=== PATIENT | female | born 1945 | race Caucasian/White ===

== ENCOUNTER 2017-08-22 18:35 | Inpatient (IN) | payer OTHER ==
[~2017-08-22] VITALS: Ht 152.4 cm; Wt 72.3 kg
[2017-08-22 20:05] LABS: Basophils # (auto) 0.1 uL; Basophils % (auto) 0.9 % (0.0-2.0); Eosinophils # (auto) 0.2 uL; Eosinophils % (auto) 1.9 % (0.0-7.0); Hematocrit 41.7 % (36.0-46.0); Lymphocytes # (auto) 2.9 uL; Lymphocytes % (auto) 32.7 % (10.0-50.0); Mean Corpuscular Hemoglobin 30.7 pg (28.0-32.0); Mean Corpuscular Hgb Conc. 33.6 g/dL (32.0-36.0); Mean Corpuscular Volume 91.3 fL (80.0-100.0); Monocytes # (auto) 0.6 uL; Monocytes % (auto) 6.9 % (0.0-12.0); Neutrophils # (auto) 5.1 uL; Neutrophils % (auto) 57.6 % (37.0-80.0); Nucleated Red Blood Cells % 0.1 %; Platelet Count (auto) 246 10^3/uL (140-450); Red Blood Cells 4.57 10^6/uL (4.0-5.20); White Blood Cell 8.9 10^3/uL (4.4-10.8)
[2017-08-22 20:12] LABS: Albumin 3.3 g/dL (3.4-5.0); BUN/Creatinine Ratio 17.3; Calcium 8.8 mg/dL (8.5-10.1)
[2017-08-22 20:15] LABS: Bilirubin, Total 0.5 mg/dL (0.2-1.0); Total Protein 7.2 g/dL (6.4-8.2)
[2017-08-22] MEDS ORDERED: CLINDAMYCIN 900MG IV 50 ML IV ONE (22:15)
[2017-08-22 23:02] LABS: Basophils # (auto) 0.1 uL; Eosinophils # (auto) 0.2 uL; Eosinophils % (auto) 1.9 % (0.0-7.0); Hematocrit 41.6 % (36.0-46.0); Hemoglobin 13.8 g/dL (12.2-16.2); Lymphocytes # (auto) 3.1 uL; Lymphocytes % (auto) 34.8 % (10.0-50.0); Mean Corpuscular Hemoglobin 30.2 pg (28.0-32.0); Mean Corpuscular Hgb Conc. 33.2 g/dL (32.0-36.0); Mean Corpuscular Volume 90.9 fL (80.0-100.0); Monocytes # (auto) 0.7 uL; Monocytes % (auto) 7.6 % (0.0-12.0); Neutrophils # (auto) 4.9 uL; Neutrophils % (auto) 54.7 % (37.0-80.0); Platelet Count (auto) 240 10^3/uL (140-450); Red Blood Cells 4.58 10^6/uL (4.0-5.20); White Blood Cell 8.9 10^3/uL (4.4-10.8)
[2017-08-22 23:18] LABS: INR 0.9 (0.9-1.15); Partial Thromboplastin Time 23.6 sec (22.64-33.71); Prothrombin Time 9.8 sec (9.37-12.3)
[2017-08-22 23:26] LABS: Albumin 3.4 g/dL (3.4-5.0); BUN/Creatinine Ratio 18.6; Bilirubin, Total 0.5 mg/dL (0.2-1.0); CRP High Sensitivity 1.08 mg/dL (< 0.3); Calcium 8.7 mg/dL (8.5-10.1); Magnesium 2.3 mg/dL (1.6-2.6); Potassium 3.7 mmol/L (3.5-5.1); Total Protein 7.3 g/dL (6.4-8.2)
[2017-08-23] VITALS (7 sets, daily range): BP systolic 91–160; BP diastolic 48–97
[2017-08-23 00:14] LABS: Urine Bacteria FEW /hpf (None Seen); Urine Blood Negative /uL (Negative); Urine WBC 18 /hpf (0 - 5)
[2017-08-23] MEDS ORDERED: InsuLIN REG 1unit/0.01ml Soln (100units/ml) IV ONE ×2 (00:15→00:30)
[2017-08-23] MEDS ORDERED: HYDROcodone-ACET 5/325MG TAB PO PRN (01:45)
[2017-08-23] MEDS ORDERED: ONDANSETRON HCL 4 MG/2 ML VIAL IV PRN (01:45)
[2017-08-23] MEDS ORDERED: MORPHINE SULFATE 4 MG/ML SYR/VIAL IV PRN (01:45)
[2017-08-23] MEDS ORDERED: ACETAMINOPHEN 500 MG TAB PO PRN (01:45)
[2017-08-23] MEDS ORDERED: DEXTROSE (50%) 50ML SYRG IV PRN (01:45)
[2017-08-23] MEDS ORDERED: SODIUM CHLORIDE 0.9% 1,000 ML IV ONE (01:45)
[2017-08-23] MEDS ORDERED: LISI10TA6 PO (05:19)
[2017-08-23] MEDS ORDERED: LEVO100T8 PO (05:19)
[2017-08-23] MEDS: InsuLIN REG 1unit/0.01ml Soln (100units/ml) SC SCH ×4 (06:46→22:02)
[2017-08-23] MEDS: ACCU-CHEK COMFORT CURVE STRIP VI SCH ×4 (06:47→22:03)
[2017-08-23] MEDS: CLINDAMYCIN 600MG IV 50 ML IV SCH ×3 (07:01→22:02)
[2017-08-23] MEDS: LEVOTHYROXINE SODIUM 100 MCG TAB PO SCH (07:02)
[2017-08-23 07:59] LABS: Basophils # (auto) 0.1 uL; Basophils % (auto) 0.7 % (0.0-2.0); Eosinophils # (auto) 0.1 uL; Eosinophils % (auto) 1.5 % (0.0-7.0); Hematocrit 40.1 % (36.0-46.0); Hemoglobin 13.5 g/dL (12.2-16.2); Lymphocytes # (auto) 3.1 uL; Lymphocytes % (auto) 35.1 % (10.0-50.0); Mean Corpuscular Hemoglobin 30.2 pg (28.0-32.0); Mean Corpuscular Hgb Conc. 33.6 g/dL (32.0-36.0); Mean Corpuscular Volume 89.7 fL (80.0-100.0); Monocytes # (auto) 0.6 uL; Monocytes % (auto) 6.7 % (0.0-12.0); Neutrophils # (auto) 4.9 uL; Platelet Count (auto) 226 10^3/uL (140-450); Red Blood Cells 4.47 10^6/uL (4.0-5.20); White Blood Cell 8.7 10^3/uL (4.4-10.8)
[2017-08-23 08:13] LABS: Cholesterol 201 mg/dL (< 200); HDL Cholesterol 43 mg/dL (40-59); LDL Cholesterol 145 mg/dL (< 100); Triglycerides 98 mg/dL (< 150)
[2017-08-23] MEDS: LISINOPRIL 10 MG TAB PO SCH (10:11)
[2017-08-23] MEDS: glipiZIDE 5 MG TAB PO SCH (18:08)
[2017-08-23] MEDS ORDERED: INSULIN LANTUS (GLARGINE) 1 /0.01ml (100units/ml) SC SCH (22:00)
[2017-08-24 05:25] VITALS: BP 131/67
[2017-08-24] MEDS: CLINDAMYCIN 600MG IV 50 ML IV SCH ×3 (06:10→22:42)
[2017-08-24] MEDS: LEVOTHYROXINE SODIUM 100 MCG TAB PO SCH (06:46)
[2017-08-24] MEDS: glipiZIDE 5 MG TAB PO SCH ×2 (06:46→18:06)
[2017-08-24] MEDS: InsuLIN REG 1unit/0.01ml Soln (100units/ml) SC SCH ×4 (06:47→22:00)
[2017-08-24] MEDS: ACCU-CHEK COMFORT CURVE STRIP VI SCH ×3 (06:47→17:10)
[2017-08-24 08:00] VITALS: BP 126/76
[2017-08-24] MEDS ORDERED: PROPOFOL 10 MG/ML 20 ML IV ONE (08:22)
[2017-08-24] MEDS ORDERED: fentaNYL CITRATE 100 MCG/2 ML VL ONE (08:22)
[2017-08-24] MEDS ORDERED: MIDAZOLAM HCL 1MG/1ML-2 ML VIAL ONE (08:22)
[2017-08-24] MEDS ORDERED: ONDANSETRON HCL 4 MG/2 ML VIAL ONE (08:22)
[2017-08-24] MEDS ORDERED: SODIUM CHLORIDE LOCK 10 ML ONE (08:57)
[2017-08-24 09:00] VITALS: BP 126/76
[2017-08-24] MEDS ORDERED: MORPHINE SULFATE 4 MG/ML SYR/VIAL IV PRN (09:15)
[2017-08-24] MEDS ORDERED: ACCU-CHEK COMFORT CURVE STRIP VI ONE (09:15)
[2017-08-24] MEDS ORDERED: METOCLOPRAMIDE HCL 5MG/ml INJ 2ml VIAL IV ONE (09:15)
[2017-08-24] MEDS: LISINOPRIL 10 MG TAB PO SCH (10:00)
[2017-08-24 13:00] VITALS: BP 134/76
[2017-08-24] MEDS ORDERED: ATOR20TA PO (14:40)
[2017-08-24 16:58] VITALS: BP 153/78
[2017-08-24] MEDS: INSULIN LANTUS (GLARGINE) 1 /0.01ml (100units/ml) SC SCH (22:00)
[2017-08-24] MEDS ORDERED: INSULIN LANTUS (GLARGINE) 1 /0.01ml (100units/ml) SC SCH (22:00)
[2017-08-24 23:00] VITALS: BP 166/83
[2017-08-25] MEDS: ACCU-CHEK COMFORT CURVE STRIP VI SCH ×5 (00:01→23:35)
[2017-08-25 04:02] VITALS: BP 145/66
[2017-08-25] MEDS: LEVOTHYROXINE SODIUM 100 MCG TAB PO SCH (06:16)
[2017-08-25] MEDS: CLINDAMYCIN 600MG IV 50 ML IV SCH ×3 (06:16→22:21)
[2017-08-25] MEDS: glipiZIDE 5 MG TAB PO SCH ×2 (06:39→18:11)
[2017-08-25] MEDS: InsuLIN REG 1unit/0.01ml Soln (100units/ml) SC SCH ×4 (06:39→23:35)
[2017-08-25 06:44] LABS: Basophils # (auto) 0.1 uL; Basophils % (auto) 0.5 % (0.0-2.0); Eosinophils # (auto) 0.2 uL; Eosinophils % (auto) 1.9 % (0.0-7.0); Hematocrit 39.4 % (36.0-46.0); Hemoglobin 13.5 g/dL (12.2-16.2); Lymphocytes # (auto) 3.1 uL; Lymphocytes % (auto) 32.4 % (10.0-50.0); Mean Corpuscular Hgb Conc. 34.3 g/dL (32.0-36.0); Mean Corpuscular Volume 90.4 fL (80.0-100.0); Monocytes # (auto) 0.7 uL; Monocytes % (auto) 7.6 % (0.0-12.0); Neutrophils # (auto) 5.5 uL; Neutrophils % (auto) 57.6 % (37.0-80.0); Platelet Count (auto) 225 10^3/uL (140-450); Red Blood Cells 4.36 10^6/uL (4.0-5.20); Red Cell Distribution Width 14.3 % (11.8-14.3); White Blood Cell 9.6 10^3/uL (4.4-10.8)
[2017-08-25 07:17] LABS: BUN/Creatinine Ratio 21.7; Calcium 8.7 mg/dL (8.5-10.1)
[2017-08-25 09:08] VITALS: BP 150/96
[2017-08-25] MEDS: LISINOPRIL 10 MG TAB PO SCH (10:05)
[2017-08-25 13:00] VITALS: BP 150/82
[2017-08-25 17:06] VITALS: BP 133/81
[2017-08-25] MEDS ORDERED: MORPHINE SULFATE 8mg/ml INJ SDV IV PRN (18:15)
[2017-08-25 22:00] VITALS: BP 132/81
[2017-08-25] MEDS: INSULIN LANTUS (GLARGINE) 1 /0.01ml (100units/ml) SC SCH (22:00)
[2017-08-26 04:44] VITALS: BP 144/71
[2017-08-26] MEDS: LEVOTHYROXINE SODIUM 100 MCG TAB PO SCH (06:08)
[2017-08-26] MEDS: CLINDAMYCIN 600MG IV 50 ML IV SCH ×2 (06:08→14:00)
[2017-08-26] MEDS: InsuLIN REG 1unit/0.01ml Soln (100units/ml) SC SCH ×2 (06:16→11:30)
[2017-08-26] MEDS: glipiZIDE 5 MG TAB PO SCH (06:16)
[2017-08-26] MEDS: ACCU-CHEK COMFORT CURVE STRIP VI SCH ×2 (06:16→11:30)
[2017-08-26 07:05] LABS: Basophils # (auto) 0.1 uL; Basophils % (auto) 0.9 % (0.0-2.0); Eosinophils # (auto) 0.1 uL; Eosinophils % (auto) 1.6 % (0.0-7.0); Hematocrit 38.8 % (36.0-46.0); Hemoglobin 13.3 g/dL (12.2-16.2); Lymphocytes # (auto) 2.7 uL; Lymphocytes % (auto) 33.9 % (10.0-50.0); Mean Corpuscular Hemoglobin 30.5 pg (28.0-32.0); Mean Corpuscular Hgb Conc. 34.2 g/dL (32.0-36.0); Mean Corpuscular Volume 89.2 fL (80.0-100.0); Monocytes # (auto) 0.6 uL; Monocytes % (auto) 7.6 % (0.0-12.0); Neutrophils # (auto) 4.4 uL; Platelet Count (auto) 233 10^3/uL (140-450); Red Blood Cells 4.35 10^6/uL (4.0-5.20); Red Cell Distribution Width 14.2 % (11.8-14.3); White Blood Cell 7.9 10^3/uL (4.4-10.8)
[2017-08-26 07:24] LABS: BUN/Creatinine Ratio 31.7; Calcium 8.6 mg/dL (8.5-10.1); Potassium 3.7 mmol/L (3.5-5.1)
[2017-08-26 09:00] VITALS: BP_SYST 151; BP_SYST 75; BP_DIAS 42; BP_DIAS 93
[2017-08-26] MEDS: LISINOPRIL 10 MG TAB PO SCH (10:00)
[2017-08-26 12:55] VITALS: BP 141/91
[2017-08-26 14:16] VITALS: BP 141/91
== END 2017-08-26 15:55 | disposition home or self-care (01) | DRG 623 ==
LOC: ER 18:35 → OVERFLOW 18:36 → CENTRAL 08-23 03:50
PROVIDERS: ADMIT Nurse Practitioner Family; ATTEND Internal Medicine
PROC: 0JB80ZZ Excision of Abdomen Subcutaneous Tissue and Fascia, Open Approach (ICD-10-PCS; principal; 2017-08-24 09:03)
DX: E11.65 Type 2 diabetes mellitus with hyperglycemia (principal); L02.211 Cutaneous abscess of abdominal wall; I11.9 Hypertensive heart disease without heart failure; L03.311 Cellulitis of abdominal wall; E66.9 Obesity, unspecified; E03.9 Hypothyroidism, unspecified; Z79.84 Long term (current) use of oral hypoglycemic drugs; Z79.899 Other long term (current) drug therapy; Z83.3 Family history of diabetes mellitus; Z82.49 Family history of ischemic heart disease and other diseases of the circulatory system; Z68.31 Body mass index [BMI] 31.0-31.9, adult
CPT/HCPCS: 36415; 71045; 80048; 80053; 80061; 81001; 82306; 82607; 82962; 83036; 83735; 84443; 85025; 85610; 85730; 86141; 87040; 87070; 87075; 87081; 87205; 93005; 94761; 96361; 96365; 96375; J1815; J2250; J2405; J2704; J3490

== ENCOUNTER → 2017-08-23 | Outpatient (CLI) | payer OTHER ==
[~2017-08-23] MED LIST: ATOR20TA PO; GLIP-116 PO; LEVO100T8 PO; LISI10TA6 PO; NITR-39 PO
== END | disposition home or self-care (01) ==
LOC: LAB 10:53
PROVIDERS: ATTEND Internal Medicine
DX: L02.91 Cutaneous abscess, unspecified (principal)
CPT/HCPCS: 87070; 87205

== ENCOUNTER 2017-09-02 16:37 | Inpatient (IN) | payer MEDICARE, OTHER ==
[~2017-09-02] VITALS: Ht 154.9 cm; Wt 69.9 kg
[~2017-09-02 16:37] MED LIST changes: -GLIP-116 PO; -NITR-39 PO
[2017-09-02 17:44] LABS: Basophils # (auto) 0.1 uL; Basophils % (auto) 0.9 % (0.0-2.0); Eosinophils # (auto) 0.1 uL; Eosinophils % (auto) 0.9 % (0.0-7.0); Hematocrit 43.8 % (36.0-46.0); Hemoglobin 14.8 g/dL (12.2-16.2); Lymphocytes # (auto) 3.4 uL; Lymphocytes % (auto) 28.8 % (10.0-50.0); Mean Corpuscular Hemoglobin 30.1 pg (28.0-32.0); Mean Corpuscular Hgb Conc. 33.8 g/dL (32.0-36.0); Monocytes # (auto) 0.8 uL; Monocytes % (auto) 6.6 % (0.0-12.0); Neutrophils # (auto) 7.4 uL; Neutrophils % (auto) 62.8 % (37.0-80.0); Nucleated Red Blood Cells % 0.1 %; Platelet Count (auto) 304 10^3/uL (140-450); Red Blood Cells 4.92 10^6/uL (4.0-5.20); Red Cell Distribution Width 13.9 % (11.8-14.3); White Blood Cell 11.7 10^3/uL (4.4-10.8)
[2017-09-02 18:06] LABS: Alanine Aminotransferase 30 U/L (13-56); Albumin 3.7 g/dL (3.4-5.0); Alkaline Phosphatase 95 U/L (45-117); Anion Gap 11 (5-15); Aspartate Aminotransferase 21 U/L (15-37); BUN/Creatinine Ratio 28.3; Bilirubin, Total 0.5 mg/dL (0.2-1.0); Blood Urea Nitrogen 17 mg/dL (7-18); Calcium 9.8 mg/dL (8.5-10.1); Carbon Dioxide 24 mmol/L (21-32); Chloride 102 mmol/L (98-107); GFR African American 127 mL/min; GFR Non-African American 105 mL/min; Glucose 111 mg/dL (74-106); Potassium 3.7 mmol/L (3.5-5.1); Sodium 137 mmol/L (136-145); Total Protein 8.1 g/dL (6.4-8.2)
[2017-09-02] MEDS ORDERED: ASPirin-EC 325mg tab PO ONE (19:15)
[2017-09-02] MEDS ORDERED: MORPHINE SULFATE 8mg/ml INJ SDV IV ONE (19:15)
[2017-09-02] MEDS ORDERED: NITROGLYCERIN 0.4 MG SL TAB SL ONE (19:15)
[2017-09-02] MEDS ORDERED: DOCUSATE SOD 100 MG CAP PO PRN (21:00)
[2017-09-02] MEDS ORDERED: TEMAZEPAM 15 MG CAP PO PRN (21:00)
[2017-09-02] MEDS ORDERED: ONDANSETRON HCL 4 MG/2 ML VIAL IV PRN (21:00)
[2017-09-02] MEDS ORDERED: HYDROcodone-ACET 5/325MG TAB PO PRN (21:00)
[2017-09-02] MEDS ORDERED: DEXTROSE (50%) 50ML SYRG IV PRN (21:00)
[2017-09-02] MEDS ORDERED: ACETAMINOPHEN 325 MG TAB PO PRN (21:00)
[2017-09-02] MEDS ORDERED: NITROGLYCERIN 0.4 MG SL TAB SL PRN (21:00)
[2017-09-02] MEDS ORDERED: MORPHINE SULFATE 8mg/ml INJ SDV IV PRN (21:00)
[2017-09-02] MEDS ORDERED: GLIP-116 PO (21:01)
[2017-09-02] MEDS: FAMOTIDINE 20 MG TAB PO SCH (22:00)
[2017-09-02] MEDS ORDERED: cloNIDine HCL 0.1 MG TAB PO PRN (22:15)
[2017-09-02] MEDS: ATORVASTATIN 20 MG TAB PO SCH (22:30)
[2017-09-02 23:00] VITALS: BP 132/100
[2017-09-02] MEDS: InsuLIN REG 1unit/0.01ml Soln (100units/ml) SC SCH (23:51)
[2017-09-02] MEDS: ACCU-CHEK COMFORT CURVE STRIP VI SCH (23:51)
[2017-09-03 04:32] VITALS: BP 119/65
[2017-09-03 05:55] LABS: Basophils # (auto) 0.1 uL; Basophils % (auto) 0.9 % (0.0-2.0); Eosinophils # (auto) 0.1 uL; Eosinophils % (auto) 1.5 % (0.0-7.0); Hemoglobin 13.1 g/dL (12.2-16.2); Lymphocytes # (auto) 2.9 uL; Mean Corpuscular Hemoglobin 30.8 pg (28.0-32.0); Mean Corpuscular Hgb Conc. 34.4 g/dL (32.0-36.0); Mean Corpuscular Volume 89.5 fL (80.0-100.0); Monocytes # (auto) 0.6 uL; Monocytes % (auto) 6.2 % (0.0-12.0); Neutrophils # (auto) 5.9 uL; Neutrophils % (auto) 61.4 % (37.0-80.0); Nucleated Red Blood Cells % 0.1 %; Platelet Count (auto) 257 10^3/uL (140-450); Red Blood Cells 4.24 10^6/uL (4.0-5.20); Red Cell Distribution Width 13.7 % (11.8-14.3); White Blood Cell 9.6 10^3/uL (4.4-10.8)
[2017-09-03] MEDS: ACCU-CHEK COMFORT CURVE STRIP VI SCH ×4 (06:00→23:36)
[2017-09-03] MEDS: InsuLIN REG 1unit/0.01ml Soln (100units/ml) SC SCH ×4 (06:00→23:36)
[2017-09-03 06:06] LABS: Calcium 8.8 mg/dL (8.5-10.1); Potassium 3.9 mmol/L (3.5-5.1)
[2017-09-03 06:09] LABS: BUN/Creatinine Ratio 25.9
[2017-09-03 06:12] LABS: Bilirubin, Total 0.6 mg/dL (0.2-1.0); Total Protein 6.7 g/dL (6.4-8.2)
[2017-09-03] MEDS: LEVOTHYROXINE SODIUM 100 MCG TAB PO SCH (06:19)
[2017-09-03 07:29] LABS: Urine Bacteria NONE SEEN /hpf (None Seen); Urine Blood Negative /uL (Negative); Urine Mucus FEW (None Seen); Urine Specific Gravity 1.017 (1.001-1.035); Urine WBC 4 /hpf (0 - 5)
[2017-09-03 09:00] VITALS: BP 144/70
[2017-09-03] MEDS: ASPirin 81 mg TAB PO SCH (09:53)
[2017-09-03] MEDS: FAMOTIDINE 20 MG TAB PO SCH ×2 (09:54→18:32)
[2017-09-03] MEDS: ENOXAPARIN SOD 40 MG/0.4 ML SYRINGE SC SCH (09:54)
[2017-09-03] MEDS: LISINOPRIL 10 MG TAB PO SCH (09:54)
[2017-09-03] MEDS ORDERED: NITROFURANTOIN (MONO) 100 mg CAP PO ONE (11:00)
[2017-09-03 13:00] VITALS: BP 128/77
[2017-09-03 17:00] VITALS: BP 145/89
[2017-09-03] MEDS: NITROFURANTOIN (MONO) 100 mg CAP PO SCH (21:53)
[2017-09-03] MEDS: ATORVASTATIN 20 MG TAB PO SCH (21:53)
[2017-09-03 22:15] VITALS: BP 120/72
[2017-09-04 05:00] VITALS: BP 118/75
[2017-09-04] MEDS: ACCU-CHEK COMFORT CURVE STRIP VI SCH ×3 (06:03→16:56)
[2017-09-04] MEDS: InsuLIN REG 1unit/0.01ml Soln (100units/ml) SC SCH ×3 (06:03→16:57)
[2017-09-04] MEDS: LEVOTHYROXINE SODIUM 100 MCG TAB PO SCH (06:15)
[2017-09-04 09:00] VITALS: BP 111/78
[2017-09-04] MEDS: ENOXAPARIN SOD 40 MG/0.4 ML SYRINGE SC SCH (10:00)
[2017-09-04] MEDS: LISINOPRIL 10 MG TAB PO SCH (10:30)
[2017-09-04] MEDS: NITROFURANTOIN (MONO) 100 mg CAP PO SCH (10:31)
[2017-09-04] MEDS: ASPirin 81 mg TAB PO SCH (10:31)
[2017-09-04] MEDS: FAMOTIDINE 20 MG TAB PO SCH (10:31)
[2017-09-04 13:00] VITALS: BP 121/81
[2017-09-04 17:00] VITALS: BP 134/78
[2017-09-04] MEDS ORDERED: NITR-39 PO (17:01)
[2017-09-04 17:23] VITALS: BP 111/78
== END 2017-09-04 18:52 | disposition home or self-care (01) | DRG 690 ==
LOC: ER 16:37 → TELE 16:38 → TELE-WESTW 22:30
PROVIDERS: ADMIT Nurse Practitioner; ATTEND Nurse Practitioner
DX: N39.0 Urinary tract infection, site not specified (principal); I24.9 Acute ischemic heart disease, unspecified; E11.9 Type 2 diabetes mellitus without complications; E66.01 Morbid (severe) obesity due to excess calories; E78.00 Pure hypercholesterolemia, unspecified; B95.1 Streptococcus, group B, as the cause of diseases classified elsewhere; G47.00 Insomnia, unspecified; K59.00 Constipation, unspecified; R07.89 Other chest pain; E78.5 Hyperlipidemia, unspecified; I10 Essential (primary) hypertension; Z83.3 Family history of diabetes mellitus; Z68.29 Body mass index [BMI] 29.0-29.9, adult; Z88.2 Allergy status to sulfonamides; Z88.1 Allergy status to other antibiotic agents; Z91.040 Latex allergy status; Z79.899 Other long term (current) drug therapy
CPT/HCPCS: 36415; 71045; 80053; 81001; 82962; 84484; 85025; 87081; 87086; 93005; 93306; 94761; J1815

== ENCOUNTER → 2017-12-25 | Outpatient (CLI) | payer OTHER, MEDICARE ==
[~2017-12-25] MED LIST changes: +GLIP-116 PO; +NITR-39 PO
[2017-12-25 09:04] LABS: Cholesterol 196 mg/dL (< 200); HDL Cholesterol 42 mg/dL (40-59); LDL Cholesterol 153 mg/dL (< 100); Triglycerides 101 mg/dL (< 150)
== END | disposition home or self-care (01) ==
LOC: LAB 07:35
PROVIDERS: ATTEND Internal Medicine
DX: E11.9 Type 2 diabetes mellitus without complications (principal); Z88.2 Allergy status to sulfonamides; Z88.0 Allergy status to penicillin; Z88.1 Allergy status to other antibiotic agents
CPT/HCPCS: 36415; 80061; 82043; 83036

== ENCOUNTER → 2019-03-18 | Outpatient (CLI) | payer OTHER, MEDICARE ==
[~2019-03-18] MED LIST changes: -GLIP-116 PO; +GLIP10TA9 PO
[2019-03-18 09:50] LABS: Basophils # (auto) 0.1 uL; Basophils % (auto) 1.1 % (0.0-2.0); Eosinophils # (auto) 0.2 uL; Hematocrit 42.7 % (36.0-46.0); Hemoglobin 14.4 g/dL (12.2-16.2); Lymphocytes # (auto) 2.9 uL; Lymphocytes % (auto) 35.6 % (10.0-50.0); Mean Corpuscular Hemoglobin 30.5 pg (28.0-32.0); Mean Corpuscular Hgb Conc. 33.7 g/dL (32.0-36.0); Mean Corpuscular Volume 90.5 fL (80.0-100.0); Monocytes # (auto) 0.6 uL; Neutrophils # (auto) 4.3 uL; Neutrophils % (auto) 53.3 % (37.0-80.0); Platelet Count (auto) 241 10^3/uL (140-450); Red Blood Cells 4.72 10^6/uL (4.0-5.20); Red Cell Distribution Width 14.5 % (11.8-14.3)
[2019-03-18 11:13] LABS: Potassium 4.5 mmol/L (3.5-5.1)
[2019-03-18 11:15] LABS: Free T4 (Free Thyroxine) 1.05 ng/dL (0.89-1.76)
[2019-03-18 11:35] LABS: Albumin 3.5 g/dL (3.4-5.0); BUN/Creatinine Ratio 23.2; Bilirubin, Total 0.9 mg/dL (0.2-1.0); Calcium 8.9 mg/dL (8.5-10.1); Total Protein 7.3 g/dL (6.4-8.2)
== END | disposition home or self-care (01) ==
LOC: LAB 09:16
PROVIDERS: ATTEND Internal Medicine
DX: E11.42 Type 2 diabetes mellitus with diabetic polyneuropathy (principal)
CPT/HCPCS: 36415; 80053; 80061; 82043; 82607; 83036; 84439; 84443; 85025; 85652

== ENCOUNTER → 2019-09-20 | Outpatient (CLI) | payer OTHER ==
[~2019-09-20] MED LIST changes: +LISI-648 PO; -LISI10TA6 PO; +METF-370 PO; +PRAV20TA3 PO
[2019-09-20 10:04] LABS: Basophils # (auto) 0.1 10 ^3/uL (0-0.2); Basophils % (auto) 1.3 % (0.0-2.0); Eosinophils # (auto) 0.3 10 ^3/uL (0-0.8); Eosinophils % (auto) 2.6 % (0.0-7.0); Hematocrit 42.5 % (36.0-46.0); Hemoglobin 13.9 g/dL (12.2-16.2); Lymphocytes % (auto) 28.2 % (10.0-50.0); Mean Corpuscular Hemoglobin 29.9 pg (28.0-32.0); Mean Corpuscular Hgb Conc. 32.8 g/dL (32.0-36.0); Mean Corpuscular Volume 91.2 fL (80.0-100.0); Monocytes # (auto) 0.6 10 ^3/uL (0-1.3); Monocytes % (auto) 5.5 % (0.0-12.0); Neutrophils # (auto) 6.6 10 ^3/uL (1.6-8.6); Neutrophils % (auto) 62.4 % (37.0-80.0); Nucleated Red Blood Cells % 0.1 %; Platelet Count (auto) 256 10^3/uL (140-450); Red Blood Cells 4.66 10^6/uL (4.0-5.20); Red Cell Distribution Width 14.5 % (11.8-14.3); White Blood Cell 10.6 10^3/uL (4.4-10.8)
[2019-09-20 11:03] LABS: Cholesterol 231 mg/dL (< 200); HDL Cholesterol 40 mg/dL (40-59); LDL Cholesterol 159 mg/dL (< 100); Triglycerides 155 mg/dL (< 150)
== END | disposition home or self-care (01) ==
LOC: LAB 09:41
PROVIDERS: ATTEND Internal Medicine
DX: E11.65 Type 2 diabetes mellitus with hyperglycemia (principal)
CPT/HCPCS: 36415; 80061; 83036; 84443; 85025

== ENCOUNTER 2019-10-28 19:42 | Inpatient (IN) | payer OTHER ==
[~2019-10-28] VITALS: Ht 160 cm; Wt 71.3 kg
[~2019-10-28 19:42] MED LIST changes: -METF-370 PO; -PRAV20TA3 PO
[2019-10-28 20:58] LABS: Basophils # (auto) 0 10 ^3/uL (0-0.2); Basophils % (auto) 0.1 % (0.0-2.0); Eosinophils # (auto) 0 10 ^3/uL (0-0.8); Hematocrit 42.3 % (36.0-46.0); Hemoglobin 14.1 g/dL (12.2-16.2); Lymphocytes # (auto) 0.6 10 ^3/uL (0.4-5.4); Lymphocytes % (auto) 3.8 % (10.0-50.0); Mean Corpuscular Hemoglobin 29.5 pg (28.0-32.0); Mean Corpuscular Hgb Conc. 33.3 g/dL (32.0-36.0); Mean Corpuscular Volume 88.6 fL (80.0-100.0); Monocytes # (auto) 0.5 10 ^3/uL (0-1.3); Monocytes % (auto) 3.2 % (0.0-12.0); Neutrophils % (auto) 92.9 % (37.0-80.0); Nucleated Red Blood Cells % 0.1 %; Platelet Count (auto) 272 10^3/uL (140-450); Red Blood Cells 4.77 10^6/uL (4.0-5.20); Red Cell Distribution Width 13.9 % (11.8-14.3); White Blood Cell 16.1 10^3/uL (4.4-10.8)
[2019-10-28 21:22] LABS: Alanine Aminotransferase 19 U/L (13-56); Albumin 2.9 g/dL (3.4-5.0); Anion Gap 14 (5-15); Aspartate Aminotransferase 29 U/L (15-37); BUN/Creatinine Ratio 18.9; Blood Urea Nitrogen 14 mg/dL (7-18); Calcium 8.8 mg/dL (8.5-10.1); Carbon Dioxide 21 mmol/L (21-32); Chloride 99 mmol/L (98-107); GFR African American 99 mL/min; GFR Non-African American 82 mL/min; Glucose 216 mg/dL (74-106); Magnesium 2.2 mg/dL (1.6-2.6); Sodium 134 mmol/L (136-145)
[2019-10-28 21:26] LABS: INR 1.18 (0.9-1.15)
[2019-10-28 21:27] LABS: Alkaline Phosphatase 75 U/L (45-117); Bilirubin, Total 1.1 mg/dL (0.2-1.0); Partial Thromboplastin Time 23.4 sec (23.64-32.05); Total Protein 7.8 g/dL (6.4-8.2)
[2019-10-28] MEDS ORDERED: levoFLOXacin 750MG 150 ML IV ONE (21:30)
[2019-10-28 21:36] LABS: Potassium 2.8 mmol/L (3.5-5.1)
[2019-10-28] MEDS ORDERED: POTASSIUM EFFERVESENT TAB 25 MEQ PO ONE (21:45)
[2019-10-28] MEDS ORDERED: VANCOMYCIN 1GM/250ML 250 ML IV ONE (23:15)
[2019-10-29] VITALS (7 sets, daily range): BP systolic 120–187; BP diastolic 48–95
[2019-10-29] MEDS ORDERED: SODIUM CHLORIDE 0.9% 1,000 ML IV SCH (00:28)
[2019-10-29] MEDS ORDERED: TEMAZEPAM 15 MG CAP PO PRN (00:30)
[2019-10-29] MEDS ORDERED: MORPHINE SULF INJ 2 MG/ML SYRINGE 1ML IV PRN (00:30)
[2019-10-29] MEDS ORDERED: ONDANSETRON HCL 4 MG/2 ML VIAL IV PRN (00:30)
[2019-10-29] MEDS ORDERED: NITROGLYCERIN 0.4 MG SL TAB SL PRN (00:30)
[2019-10-29] MEDS ORDERED: DEXTROSE (50%) 50ML SYRG IV PRN (00:30)
[2019-10-29] MEDS ORDERED: ENOXAPARIN SOD 100 MG/1 ML SYRINGE SC ONE (01:00)
[2019-10-29] MEDS ORDERED: IOHEXOL 350 MG/ML 100ML IJ ONE (01:03)
[2019-10-29 01:07] LABS: Magnesium 2.3 mg/dL (1.6-2.6)
[2019-10-29 01:16] LABS: CRP High Sensitivity 9.88 mg/dL (< 0.3)
--- NOTE | 2019-10-29 05:00 | NUR ---
pt arrival pt arrived via wheelchair. pt is ambulatory. pt is on 5L ns. pt transferred self to hospital bed.
[2019-10-29] MEDS: ALBUTEROL SULF HFA 90MCG INH 200DOSE IN SCH ×3 (06:00→23:54)
[2019-10-29] MEDS: ACCU-CHEK COMFORT CURVE STRIP VI SCH ×4 (06:12→22:39)
[2019-10-29] MEDS: LEVOTHYROXINE SODIUM 100 MCG TAB PO SCH (06:12)
[2019-10-29] MEDS: InsuLIN REG 1unit/0.01ml Soln (100units/ml) SC SCH ×4 (06:13→22:42)
--- NOTE | 2019-10-29 07:24 | NUR ---
closing note pt resting in semi fowlers with HOB at 30 degrees. pt is on 5L nc. respirations are even and nonlabored. no s/s of pain or discomfort. bed in low locked position, call light within reach.
[2019-10-29] MEDS ORDERED: LISINOPRIL 10 MG TAB PO SCH (10:00)
[2019-10-29] MEDS ORDERED: DOXYCYCLINE 100MG/250ML 250 ML IV SCH (10:00)
[2019-10-29] MEDS ORDERED: ENOXAPARIN SOD 40 MG/0.4 ML SYRINGE SC SCH (10:00)
[2019-10-29] MEDS: CHOLECALCIFEROL (VITD3) 1,000UNIT=25mCg TAB PO SCH (10:40)
[2019-10-29] MEDS: ASCORBIC ACID 1,000 MG TAB PO SCH (10:41)
[2019-10-29] MEDS: FAMOTIDINE 20 MG TAB PO SCH (10:41)
[2019-10-29] MEDS: ZINC SULFATE 220mg CAP or TAB PO SCH (10:42)
[2019-10-29] MEDS: ACETAMINOPHEN 325 MG TAB PO PRN (10:42)
[2019-10-29 12:16] LABS: Basophils # (auto) 0 10 ^3/uL (0-0.2); Basophils % (auto) 0.3 % (0.0-2.0); Eosinophils # (auto) 0 10 ^3/uL (0-0.8); Eosinophils % (auto) 0.3 % (0.0-7.0); Hematocrit 41.2 % (36.0-46.0); Hemoglobin 13.8 g/dL (12.2-16.2); Lymphocytes # (auto) 1.2 10 ^3/uL (0.4-5.4); Lymphocytes % (auto) 12.2 % (10.0-50.0); Mean Corpuscular Hemoglobin 29.4 pg (28.0-32.0); Mean Corpuscular Hgb Conc. 33.4 g/dL (32.0-36.0); Mean Corpuscular Volume 88.2 fL (80.0-100.0); Monocytes # (auto) 0.3 10 ^3/uL (0-1.3); Monocytes % (auto) 2.6 % (0.0-12.0); Neutrophils # (auto) 8.7 10 ^3/uL (1.6-8.6); Neutrophils % (auto) 84.6 % (37.0-80.0); Platelet Count (auto) 260 10^3/uL (140-450); Red Blood Cells 4.68 10^6/uL (4.0-5.20); Red Cell Distribution Width 14.2 % (11.8-14.3); White Blood Cell 10.2 10^3/uL (4.4-10.8)
[2019-10-29 12:31] LABS: BUN/Creatinine Ratio 17.5; Calcium 8.7 mg/dL (8.5-10.1); Potassium 3.1 mmol/L (3.5-5.1)
[2019-10-29] MEDS ORDERED: FUROSEMIDE 20 MG/2 ML VIAL IV ONE (13:45)
[2019-10-29] MEDS ORDERED: POTASSIUM EFFERVESENT TAB 25 MEQ PO ONE (13:45)
[2019-10-29] MEDS ORDERED: DexAMETHasone 4 MG TAB PO ONE (13:45)
[2019-10-29] MEDS ORDERED: POTASSIUM CHL 20 Meq TABLET PO ONE (14:00)
--- NOTE | 2019-10-29 19:05 | NUR ---
Opening note pt A&Ox4. respirations even and nonlabored on 10L simple mask. pt denies pain or discomfort at this time, will continue to monitor. POC discussed with pt, verbalized understanding. pt advised to call for assistance if attempting to get out of bed. pt becomes short of breath upon ambulation. pt advised that bedpan or BSC will be better options than toilet at this time. pt verbalized understanding. bed in low locked position, call light within reach.
--- NOTE | 2019-10-29 22:00 | NUR ---
Hospitalist paged regarding pt BP of 187/95, HR 87
[2019-10-29] MEDS: FUROSEMIDE 20 MG/2 ML VIAL IV SCH (22:38)
[2019-10-29] MEDS: ATORVASTATIN 20 MG TAB PO SCH (22:39)
[2019-10-29] MEDS: DexAMETHasone 4 MG TAB PO SCH (22:39)
[2019-10-29] MEDS: INSULIN LANTUS (GLARGINE) 1 /0.01ml (100units/ml) SC SCH (22:41)
--- NOTE | 2019-10-29 23:15 | NUR ---
Hospitalist Jose Alberto Spoke with Hospitalist regarding pt BP AND HR. New orders received: Labetalol 10mg IV ONCE. New orders read back and verified.
--- NOTE | 2019-10-29 23:25 | NUR ---
BP HR recheck BP 152/79, HR 86. This nurse will not administer labetalol 10mg via IV at this time. Will continue to monitor.
[2019-10-30] MEDS ORDERED: LABETALOL HCL 5 MG/ML 4ML SYRINGE IV ONE
[2019-10-30 05:00] VITALS: BP 174/97
[2019-10-30] MEDS: ACCU-CHEK COMFORT CURVE STRIP VI SCH ×4 (06:29→22:15)
[2019-10-30] MEDS: INSULIN LANTUS (GLARGINE) 1 /0.01ml (100units/ml) SC SCH ×2 (06:31→22:26)
[2019-10-30] MEDS: InsuLIN REG 1unit/0.01ml Soln (100units/ml) SC SCH ×4 (06:31→22:26)
[2019-10-30] MEDS: LEVOTHYROXINE SODIUM 100 MCG TAB PO SCH (06:32)
[2019-10-30 07:02] LABS: Basophils # (auto) 0 10 ^3/uL (0-0.2); Basophils % (auto) 0.2 % (0.0-2.0); Eosinophils # (auto) 0 10 ^3/uL (0-0.8); Hematocrit 42.2 % (36.0-46.0); Lymphocytes # (auto) 0.7 10 ^3/uL (0.4-5.4); Lymphocytes % (auto) 7.7 % (10.0-50.0); Mean Corpuscular Hemoglobin 29.4 pg (28.0-32.0); Mean Corpuscular Hgb Conc. 33.2 g/dL (32.0-36.0); Mean Corpuscular Volume 88.5 fL (80.0-100.0); Monocytes # (auto) 0.2 10 ^3/uL (0-1.3); Monocytes % (auto) 2.7 % (0.0-12.0); Neutrophils # (auto) 8.1 10 ^3/uL (1.6-8.6); Neutrophils % (auto) 89.4 % (37.0-80.0); Nucleated Red Blood Cells % 0.1 %; Platelet Count (auto) 245 10^3/uL (140-450); Red Blood Cells 4.77 10^6/uL (4.0-5.20); Red Cell Distribution Width 14.2 % (11.8-14.3); White Blood Cell 9.1 10^3/uL (4.4-10.8)
[2019-10-30 07:26] LABS: Albumin 2.4 g/dL (3.4-5.0); BUN/Creatinine Ratio 22.4; Calcium 8.8 mg/dL (8.5-10.1); Potassium 4.4 mmol/L (3.5-5.1)
[2019-10-30 07:29] LABS: Bilirubin, Total 0.9 mg/dL (0.2-1.0); Total Protein 7.5 g/dL (6.4-8.2)
--- NOTE | 2019-10-30 07:30 | NUR ---
Opening Shift Note Assumed care of patient, awake and alert. No S/S of distress, SOB with activity, O2 in place denies pain. Instructed on POC and to call for assist PRN, will continue to monitor for changes Q1hr and PRN.
--- NOTE | 2019-10-30 07:48 | NUR ---
closing note Pt resting in semi fowlers with HOB at 30 degrees. respirations even and nonlabored on 10L simple mask. pt denies having pain at this time. pt needs assistance when going to BSC. bed in low locked position, call light within reach. endorsed care to day shift RN.
[2019-10-30] MEDS: ALBUTEROL SULF HFA 90MCG INH 200DOSE IN SCH ×3 (08:54→22:08)
[2019-10-30] MEDS: FUROSEMIDE 20 MG/2 ML VIAL IV SCH ×2 (09:43→22:13)
[2019-10-30] MEDS: ZINC SULFATE 220mg CAP or TAB PO SCH (09:43)
[2019-10-30] MEDS: CHOLECALCIFEROL (VITD3) 1,000UNIT=25mCg TAB PO SCH (09:44)
[2019-10-30] MEDS: ENOXAPARIN SOD 40 MG/0.4 ML SYRINGE SC SCH (09:44)
[2019-10-30] MEDS: ASCORBIC ACID 1,000 MG TAB PO SCH (09:44)
[2019-10-30] MEDS: POTASSIUM EFFERVESENT TAB 25 MEQ PO SCH (09:44)
[2019-10-30] MEDS: FAMOTIDINE 20 MG TAB PO SCH (09:44)
[2019-10-30 09:46] VITALS: BP 131/86
[2019-10-30] MEDS: DexAMETHasone 4 MG TAB PO SCH ×2 (09:46→22:14)
[2019-10-30] MEDS ORDERED: levoFLOXacin 250 MG TAB PO SCH (10:00)
--- NOTE | 2019-10-30 10:00 | NUR ---
Patients O2 sat at 83on 10 L simple mask, patient placed on 15L nonrebreather, sat at 92, unable to lay flat.
[2019-10-30 12:41] VITALS: BP 147/89
[2019-10-30] MEDS ORDERED: LORazepam 2MG/ML-1ML VIAL IV ONE (12:45)
[2019-10-30 16:37] VITALS: BP 152/83
[2019-10-30] MEDS ORDERED: DEXTROSE (50%) 50ML SYRG IV PRN (20:15)
[2019-10-30] MEDS ORDERED: DOXYCYCLINE 100 MG TAB/CAP PO ONE (20:45)
[2019-10-30] MEDS: DOXYCYCLINE 100 MG TAB/CAP PO SCH (22:14)
[2019-10-30] MEDS: ATORVASTATIN 20 MG TAB PO SCH (22:15)
[2019-10-31 05:00] VITALS: BP 168/92
[2019-10-31] MEDS: LEVOTHYROXINE SODIUM 100 MCG TAB PO SCH (06:37)
[2019-10-31] MEDS: ACCU-CHEK COMFORT CURVE STRIP VI SCH ×4 (06:38→23:35)
[2019-10-31] MEDS: InsuLIN REG 1unit/0.01ml Soln (100units/ml) SC SCH ×4 (06:49→23:35)
[2019-10-31] MEDS: INSULIN LANTUS (GLARGINE) 1 /0.01ml (100units/ml) SC SCH ×2 (06:50→23:34)
--- NOTE | 2019-10-31 07:00 | NUR ---
Opening Shift Note Assumed care of patient, awake and alert. No S/S of distress Patient is on 15 L non rebreather, no pain. Instructed on POC and to call for assist PRN, will continue to monitor for changes Q1hr and PRN.
[2019-10-31] MEDS: ALBUTEROL SULF HFA 90MCG INH 200DOSE IN SCH ×3 (07:47→23:00)
[2019-10-31 08:44] VITALS: BP 147/85
[2019-10-31] MEDS: DexAMETHasone 4 MG TAB PO SCH ×2 (09:22→21:21)
[2019-10-31] MEDS: ZINC SULFATE 220mg CAP or TAB PO SCH (09:22)
[2019-10-31] MEDS: ASCORBIC ACID 1,000 MG TAB PO SCH (09:22)
[2019-10-31] MEDS: POTASSIUM EFFERVESENT TAB 25 MEQ PO SCH (09:22)
[2019-10-31] MEDS: FAMOTIDINE 20 MG TAB PO SCH (09:23)
[2019-10-31] MEDS: ENOXAPARIN SOD 40 MG/0.4 ML SYRINGE SC SCH (09:23)
[2019-10-31] MEDS: CHOLECALCIFEROL (VITD3) 1,000UNIT=25mCg TAB PO SCH (09:23)
[2019-10-31] MEDS ORDERED: DEXTROSE (50%) 50ML SYRG IV PRN (11:30)
[2019-10-31] MEDS: FUROSEMIDE 20 MG/2 ML VIAL IV SCH ×2 (11:51→21:21)
--- NOTE | 2019-10-31 11:56 | NUR ---
assessment Patient is a 74 year old female who is alert and oriented. Patients cognitive abilities are intact. Prior to admission patient lived home with her Kaden and functioned independently. Patient informed me she is able to care for her own ADLs. Per patient she will return home to her prior living arrangements post discharge and family will transport her home. Patient informed me she had no need for DME and had no oxygen prior to admission. Patient is covid positive. Per patient her Kaden has been admitted for Covid related symptoms also. Patients PCP is Dr Rush. I informed patient I will continue to monitor and follow up as appropriate. I informed patient she has a right to speak to a social services assistant regarding all care. I informed patient she has a right to participate in any and all discharge planning. Patient does not have a POA and advanced directive. I have offered patient information on POA and advanced directives. I informed the patient the advantages and benefits of having an Advanced Directive. Patient verbalized understanding and agreed to discharge plan. Addendum: 10/31/19 at 1159 by Maryjane MCCORMACK Amended: Links added.
[2019-10-31 12:39] VITALS: BP 117/85
--- NOTE | 2019-10-31 13:04 | NUR ---
Consent Patient wants to wait until am 11/01/19 to make a decision in regards to receiving Remdesivir.
[2019-10-31 13:09] LABS: Albumin 2.7 g/dL (3.4-5.0); Potassium 3.7 mmol/L (3.5-5.1)
[2019-10-31 13:14] LABS: BUN/Creatinine Ratio 25.6; Bilirubin, Total 0.9 mg/dL (0.2-1.0); Calcium 9.4 mg/dL (8.5-10.1); Total Protein 7.9 g/dL (6.4-8.2)
--- NOTE | 2019-10-31 16:42 | NUR ---
OXYGEN TITRATION TITRATED PATIENTS O2 TO 13 L ON NON REBREATHER. PATIENTS O2 SATURATION IS 95% NO S/S OF DISTRESS NOTED.
[2019-10-31 16:46] VITALS: BP 147/82
--- NOTE | 2019-10-31 17:38 | NUR ---
OXYGEN TITRATION TITRATED PATIENT TO 11 L NON REBREATHER PATIENTS O2 SATURATION IS 94%. CALLED RT AND ASKED FOR AN OXYMIZER.
[2019-10-31] MEDS ORDERED: REMDESIVIR 200 MG in NS 210ml LOADING DOSE ADULT IV ONE (18:15)
--- NOTE | 2019-10-31 18:32 | NUR ---
OXYGEN TITRATION PLACED PATIENT ON 12 L OXYMIZER PATIENTS O2 SATURATION IS 91% NO SIGNS OR SYMPTOMS OF DISTRESS NOTED. WILL CONTINUE TO MONITOR.
--- NOTE | 2019-10-31 19:25 | NUR ---
Opening Shift Note Received report from saravanan Betancur RN. Assumed care of patient, awake and alert. Sitting on the commode. Saturating 88% on 12L Oxymizer. No distress noted and patient denies pain. Instructed on POC and to call for assist PRN, will continue to monitor for changes Q1hr and PRN. Bed placed in lowest position, bed alarm turned on and call light within reach.
[2019-10-31] MEDS: ATORVASTATIN 20 MG TAB PO SCH (21:21)
[2019-10-31] MEDS: DOXYCYCLINE 100 MG TAB/CAP PO SCH (21:22)
[2019-10-31 22:00] VITALS: BP 146/89
--- NOTE | 2019-10-31 23:17 | NUR ---
Patient continues to saturate at 85 % on 12L Oximizer. Place patient back on non-rebreather at 13L. Patient eventually saturating at 92%. Will monitor.
[2019-11-01] MEDS: ACCU-CHEK COMFORT CURVE STRIP VI SCH ×3 (05:33→17:31)
[2019-11-01 05:50] VITALS: BP 136/83
--- NOTE | 2019-11-01 06:20 | NUR ---
ROUNDS Patient continues on 13L non-rebreather saturating at 92%, SOB with exertion and slight non-productive coughing noted. Patient denies pain at this time.
[2019-11-01] MEDS: LEVOTHYROXINE SODIUM 100 MCG TAB PO SCH (06:39)
[2019-11-01] MEDS: InsuLIN REG 1unit/0.01ml Soln (100units/ml) SC SCH ×3 (06:39→17:30)
[2019-11-01] MEDS: INSULIN LANTUS (GLARGINE) 1 /0.01ml (100units/ml) SC SCH (06:40)
[2019-11-01] MEDS: ALBUTEROL SULF HFA 90MCG INH 200DOSE IN SCH ×3 (07:29→22:27)
[2019-11-01] MEDS: FAMOTIDINE 20 MG TAB PO SCH ×2 (08:59→22:12)
[2019-11-01] MEDS: ZINC SULFATE 220mg CAP or TAB PO SCH (08:59)
[2019-11-01] MEDS: POTASSIUM CHL 20 Meq TABLET PO SCH (08:59)
[2019-11-01] MEDS: DexAMETHasone 4 MG TAB PO SCH ×2 (08:59→22:12)
[2019-11-01] MEDS: DOXYCYCLINE 100 MG TAB/CAP PO SCH ×2 (08:59→22:12)
[2019-11-01 09:00] VITALS: BP 126/77
[2019-11-01] MEDS: ENOXAPARIN SOD 40 MG/0.4 ML SYRINGE SC SCH (09:00)
[2019-11-01] MEDS: CHOLECALCIFEROL (VITD3) 1,000UNIT=25mCg TAB PO SCH (09:00)
[2019-11-01] MEDS: ASCORBIC ACID 1,000 MG TAB PO SCH (09:00)
--- NOTE | 2019-11-01 09:20 | NUR ---
PATIENT HAD MASK OFF WHILE EATING BREAKFAST AND DID NOT CALL TO SWITCH TO OXIMIZER. PATIENT DESATING AT 77%, PLACED ON OXIMIZER AND TOLD TO BREATH THROUGH NOSE, THEN OXYGEN INCREASED TO 90%.
[2019-11-01] MEDS: FUROSEMIDE 20 MG/2 ML VIAL IV SCH ×2 (09:25→22:11)
[2019-11-01] MEDS ORDERED: REMDESIVIR 100mg in NS 230ml DAILYx4DAYS (NO VENT) IV SCH (10:00)
[2019-11-01 10:10] VITALS: BP 124/77
--- NOTE | 2019-11-01 10:20 | NUR ---
PATIENT CONTINUES TO DE-SAT UPON DOING ADL'S AND TRANSFERRING TO [facility]. UPON ENTERING ROOM WHEN PATIENT WAS AT 86% 02, PATIENT TOOK MASK OFF TO DRINK AND DRINK, SHE IMMEDIATELY DE-SATS. AFTER RELAXING AND SITTING UP IN BED PATIENT GOES BACK UP TO 94% ON 15L OXIMIZER Addendum: 11/01/19 at 1518 by Alma Ivey RN 94% ON 15L NON REBREATHER.
--- NOTE | 2019-11-01 12:16 | NUR ---
updated patient family on plan of care.
[2019-11-01 13:00] VITALS: BP 145/83
--- NOTE | 2019-11-01 14:32 | NUR ---
Est energy needs 1881-3237 kcal (20-25 kcal/kg BW 74.4kg) est protein needs 59-74g (0.8-1g/kg BW 74.4kg) Will reassess prn Addendum: 11/01/19 at [address] Amended: Links added.
--- NOTE | 2019-11-01 16:06 | NUR ---
Patient requests to talk to Dr. Aj about Remdesevir and further treatment and other questions and concerns. Waiting for Dr to round.
[2019-11-01 17:00] VITALS: BP 141/83
--- NOTE | 2019-11-01 17:00 | NUR ---
Dr vega discussed remdesivir with patient in detail. Patient wants to give information to .
--- NOTE | 2019-11-01 17:35 | NUR ---
Updated patient family on plan of care
--- NOTE | 2019-11-01 18:00 | NUR ---
Patient consented to Remdesevir. Patient has been given the fact sheet and talked to the Dr. hamm , informed of potential risk/benefit, informed of alternative to Remdesevir and risk/benefit of alternative, patent informed that Remdesevir is an unapproved drug that is authorized under the EUA. Patient was informed that she has the option to accept of refuse medication. Patient accepts risk and agrees to treatment.
--- NOTE | 2019-11-01 18:44 | NUR ---
pharmacy called and confirmed receipt of consent.
[2019-11-01] MEDS ORDERED: REMDESIVIR 200 MG in NS 210ml LOADING DOSE ADULT IV ONE ×2 (19:00→20:00)
--- NOTE | 2019-11-01 19:25 | NUR ---
Opening Shift Note Received report from saravanan Marquez RN. Assumed care of patient, awake and alert. Saturating 92% on 12L Oxymizer. No distress noted and patient denies pain. Instructed on POC and to call for assist PRN, will continue to monitor for changes Q1hr and PRN. Bed placed in lowest position, bed alarm turned on and call light within reach.
--- NOTE | 2019-11-01 20:30 | NUR ---
Started Remdesiver infusion. Blood pressure is 130/88, heart rate is 111, temp is 97.8, respirations of 24, saturating at 92% on 12L Oxymizer. Will monitor
[2019-11-01 22:00] VITALS: BP 129/85
--- NOTE | 2019-11-01 22:00 | NUR ---
Remdesiver infusion done. No s/s of adverse reactions noted. Vitals are blood pressure 129/85, temp 97.4, heart rate is 97, resp 19 and patient is saturating at 90% on 12 L Oxymizer.
[2019-11-01] MEDS: ATORVASTATIN 20 MG TAB PO SCH (22:13)
[2019-11-02] MEDS: ACCU-CHEK COMFORT CURVE STRIP VI SCH ×5 (00:01→23:01)
[2019-11-02] MEDS: InsuLIN REG 1unit/0.01ml Soln (100units/ml) SC SCH ×5 (00:08→23:01)
[2019-11-02] MEDS: INSULIN LANTUS (GLARGINE) 1 /0.01ml (100units/ml) SC SCH ×3 (00:09→23:00)
[2019-11-02 05:00] VITALS: BP 126/82
--- NOTE | 2019-11-02 05:38 | NUR ---
ROUNDS Patient is resting in bed with eyes closed, no distress noted and patient denies pain, saturating at 92% on 15 L Oxymizer.
[2019-11-02] MEDS: LEVOTHYROXINE SODIUM 100 MCG TAB PO SCH (06:32)
[2019-11-02] MEDS: ALBUTEROL SULF HFA 90MCG INH 200DOSE IN SCH ×3 (06:45→22:00)
[2019-11-02 07:39] VITALS: BP 134/79
--- NOTE | 2019-11-02 08:00 | NUR ---
Opening Shift Note Assumed care of patient, awake and alertX4. No S/S of distress/SOB or pain. Instructed on POC and to call for assist PRN. Bed at lowest locked position and call light within reach. will continue to monitor for changes Q1hr and PRN.
[2019-11-02 08:31] VITALS: BP 134/79
--- NOTE | 2019-11-02 10:34 | NUR ---
Dr. Sandra at bedside.
--- NOTE | 2019-11-02 10:45 | NUR ---
Patient had a BM on the bedside commode, assisted with cleaning.
[2019-11-02 10:54] LABS: Basophils # (auto) 0 10 ^3/uL (0-0.2); Eosinophils # (auto) 0 10 ^3/uL (0-0.8); Eosinophils % (auto) 0.2 % (0.0-7.0); Hematocrit 51.8 % (36.0-46.0); Hemoglobin 16.7 g/dL (12.2-16.2); Lymphocytes % (auto) 11.6 % (10.0-50.0); Mean Corpuscular Hemoglobin 28.8 pg (28.0-32.0); Mean Corpuscular Hgb Conc. 32.3 g/dL (32.0-36.0); Mean Corpuscular Volume 89.2 fL (80.0-100.0); Monocytes # (auto) 0.4 10 ^3/uL (0-1.3); Monocytes % (auto) 2.5 % (0.0-12.0); Neutrophils # (auto) 14.6 10 ^3/uL (1.6-8.6); Neutrophils % (auto) 85.7 % (37.0-80.0); Nucleated Red Blood Cells % 0.1 %; Platelet Count (auto) 263 10^3/uL (140-450); Red Blood Cells 5.81 10^6/uL (4.0-5.20); Red Cell Distribution Width 14.1 % (11.8-14.3)
[2019-11-02] MEDS: ZINC SULFATE 220mg CAP or TAB PO SCH (11:05)
[2019-11-02] MEDS: DexAMETHasone 4 MG TAB PO SCH ×2 (11:05→22:32)
[2019-11-02] MEDS: FUROSEMIDE 20 MG/2 ML VIAL IV SCH ×2 (11:05→22:32)
[2019-11-02] MEDS: DOXYCYCLINE 100 MG TAB/CAP PO SCH ×2 (11:06→22:31)
[2019-11-02] MEDS: ASCORBIC ACID 1,000 MG TAB PO SCH (11:06)
[2019-11-02] MEDS: CHOLECALCIFEROL (VITD3) 1,000UNIT=25mCg TAB PO SCH (11:06)
[2019-11-02] MEDS: FAMOTIDINE 20 MG TAB PO SCH ×2 (11:06→22:31)
[2019-11-02] MEDS: POTASSIUM CHL 20 Meq TABLET PO SCH (11:06)
[2019-11-02] MEDS: ENOXAPARIN SOD 40 MG/0.4 ML SYRINGE SC SCH (11:07)
[2019-11-02 11:20] LABS: Albumin 2.7 g/dL (3.4-5.0); Calcium 9.2 mg/dL (8.5-10.1); Potassium 3.4 mmol/L (3.5-5.1)
[2019-11-02 11:27] LABS: BUN/Creatinine Ratio 29.2; Bilirubin, Total 0.9 mg/dL (0.2-1.0); Total Protein 8.1 g/dL (6.4-8.2)
[2019-11-02] MEDS ORDERED: VANCOMYCIN PER PHARMACY 0 MG IV SCH (12:00)
[2019-11-02] MEDS: MEROPENEM 1GM IVPB 100 ML IV SCH ×2 (12:07→20:44)
[2019-11-02 13:00] VITALS: BP 124/75
[2019-11-02] MEDS ORDERED: VANCOMYCIN 1GM/250ML 250 ML IV ONE (14:00)
--- NOTE | 2019-11-02 14:00 | NUR ---
Bed bath provided with help of Zofia MURRIETA, complete bed change done. Patient tolerated well. Will continue to monitor.
[2019-11-02] MEDS ORDERED: FLUCONAZOLE 200MG/100ML 100 ML IV ONE (16:00)
[2019-11-02 17:09] VITALS: BP 118/83
[2019-11-02] MEDS: REMDESIVIR 100mg in NS 230ml DAILYx4DAYS (NO VENT) IV SCH (17:47)
--- NOTE | 2019-11-02 17:50 | NUR ---
IV removal on Right AC. IV infiltrated. IV DC'd with clean sterile technique, catheter fully intact. Pressure dressing applied to site. Patient tolerated well.
[2019-11-02] MEDS ORDERED: POTASSIUM EFFERVESENT TAB 25 MEQ PO ONE (18:15)
--- NOTE | 2019-11-02 18:50 | NUR ---
Dr. Almonte at bedside.
--- NOTE | 2019-11-02 19:08 | NUR ---
Patient had a BM on the bedside commode, assisted with cleaning.
--- NOTE | 2019-11-02 19:16 | NUR ---
Closing Note Patient is comfortably resting in bed, on 15L Non-Rebreather mask, patient is saturating at 93%, no s/s of distress noted/stated. Bed at lowest locked position and call light within reach. Will endorse care to NOC RN.
[2019-11-02 22:00] VITALS: BP 127/65
[2019-11-02] MEDS: ATORVASTATIN 20 MG TAB PO SCH (22:32)
[2019-11-03] MEDS: VANCOMYCIN 1GM/250ML 250 ML IV SCH ×2 (04:36→17:57)
[2019-11-03 05:00] VITALS: BP 130/70
[2019-11-03] MEDS: InsuLIN REG 1unit/0.01ml Soln (100units/ml) SC SCH ×4 (06:46→23:57)
[2019-11-03] MEDS: ACCU-CHEK COMFORT CURVE STRIP VI SCH ×4 (06:46→23:57)
[2019-11-03] MEDS: INSULIN LANTUS (GLARGINE) 1 /0.01ml (100units/ml) SC SCH ×2 (06:47→22:22)
[2019-11-03] MEDS: LEVOTHYROXINE SODIUM 100 MCG TAB PO SCH (06:47)
[2019-11-03] MEDS: ALBUTEROL SULF HFA 90MCG INH 200DOSE IN SCH ×3 (06:55→21:26)
[2019-11-03] MEDS: MEROPENEM 1GM IVPB 100 ML IV SCH ×3 (07:25→22:23)
--- NOTE | 2019-11-03 07:26 | NUR ---
Closing Shift Note Patient care endorsed to Yuko GRIDER. Addendum: 11/03/19 at 07 by KAT MARCOS RN RN Closing Note Patient is comfortably resting in bed, on 15L/min non-Rebreather mask, SPO2: 94% at this time. No sign/symptoms of distress noted or verbalized at this time. Patient care endorsed to Yuko GRIDER.
--- NOTE | 2019-11-03 07:31 | NUR ---
Opening Shift Note Assumed care of patient, awake and alert. No S/S of distress. SOB with activity, remains on 15L nonbreather, denies pain. Instructed on POC and to call for assist PRN, will continue to monitor for changes Q1hr and PRN.
[2019-11-03 09:00] VITALS: BP 153/80
[2019-11-03] MEDS: FLUCONAZOLE 200MG/100ML 100 ML IV SCH (10:21)
[2019-11-03] MEDS: FUROSEMIDE 20 MG/2 ML VIAL IV SCH ×2 (10:21→22:16)
[2019-11-03] MEDS: ZINC SULFATE 220mg CAP or TAB PO SCH (10:21)
[2019-11-03] MEDS: FAMOTIDINE 20 MG TAB PO SCH ×2 (10:22→22:17)
[2019-11-03] MEDS: DOXYCYCLINE 100 MG TAB/CAP PO SCH ×2 (10:22→22:17)
[2019-11-03] MEDS: POTASSIUM EFFERVESENT TAB 25 MEQ PO SCH (10:22)
[2019-11-03] MEDS: DexAMETHasone 4 MG TAB PO SCH ×2 (10:22→22:16)
[2019-11-03] MEDS: ASCORBIC ACID 1,000 MG TAB PO SCH (10:23)
[2019-11-03] MEDS: CHOLECALCIFEROL (VITD3) 1,000UNIT=25mCg TAB PO SCH (10:23)
[2019-11-03] MEDS: ENOXAPARIN SOD 40 MG/0.4 ML SYRINGE SC SCH (10:23)
--- NOTE | 2019-11-03 11:15 | NUR ---
Patient up in chair, sob on 15L nonbreather 90-92%, very anxious, Spoke with MD orders received, patient informed, will put back in bed and medicate as needed, will continue to monitor.
[2019-11-03] MEDS: LORazepam 2MG/ML-1ML VIAL IV PRN ×2 (11:29→22:17)
--- NOTE | 2019-11-03 12:00 | NUR ---
Patient asleep, with no s/s of distress noted, 15 L nonrebreather, sat at 95-96%, will continue to monitor.
[2019-11-03 13:00] VITALS: BP 125/48
[2019-11-03 13:26] LABS: BUN/Creatinine Ratio 39.7; Calcium 8.8 mg/dL (8.5-10.1); Potassium 4.1 mmol/L (3.5-5.1)
[2019-11-03] MEDS: REMDESIVIR 100mg in NS 230ml DAILYx4DAYS (NO VENT) IV SCH (17:55)
[2019-11-03 17:56] VITALS: BP 139/99
--- NOTE | 2019-11-03 19:20 | NUR ---
Opening Shift Note Assumed care of patient, awake and alert. No S/S of distress/SOB or pain. Patient on 15L Non-rebreather sating at 91%. Instructed on POC and to call for assist PRN, will continue to monitor for changes Q1hr and PRN.
[2019-11-03 20:00] VITALS: BP 126/86
[2019-11-03 22:00] VITALS: BP 126/86
[2019-11-03] MEDS: ATORVASTATIN 20 MG TAB PO SCH (22:17)
[2019-11-04] VITALS (7 sets, daily range): BP systolic 107–128; BP diastolic 67–82
[2019-11-04] MEDS: MEROPENEM 1GM IVPB 100 ML IV SCH ×3 (06:20→22:41)
[2019-11-04] MEDS: ACCU-CHEK COMFORT CURVE STRIP VI SCH ×3 (06:21→17:39)
[2019-11-04] MEDS: InsuLIN REG 1unit/0.01ml Soln (100units/ml) SC SCH ×3 (06:21→17:39)
[2019-11-04] MEDS: LEVOTHYROXINE SODIUM 100 MCG TAB PO SCH (06:21)
[2019-11-04] MEDS: INSULIN LANTUS (GLARGINE) 1 /0.01ml (100units/ml) SC SCH ×2 (06:21→22:43)
[2019-11-04] MEDS: ALBUTEROL SULF HFA 90MCG INH 200DOSE IN SCH ×3 (06:31→22:13)
--- NOTE | 2019-11-04 07:20 | NUR ---
OPENING NOTE ASSUMED CARE OF PT. ALERT AND ORIENTED. NO S/S OF SOB/DISTRESS NOTED. BED SET TO LOWEST POSITION/LOCKED, BEDSIDE RAILS UP X2, CALL LIGHT WITHIN REACH, INSTRUCTED PT TO CALL FOR ASSISTANCE. UPDATE PT TO CALL FOR ASSISTANCE. PT VERBALIZED UNDERSTANDING. WILL CONTINUE TO MONITOR Q1HR AND PRN.
--- NOTE | 2019-11-04 08:15 | NUR ---
VANCO MEDICATION VANCO MEDICATION HELD. VANCO TROUGH LEVELS HAVE NOT BEEN DRAWN. CALL LAB TO VERIFY WHY LABS HAVE NOT BEEN DONE, THERE IS AN ORDER FOR VANCO TROUGH TO BE DRAWN TODAY AT 0700. PER RIVET SPINNER HE WAS GOING TO SEND SOMEONE UP TO DRAW LABS. CALL PHARMACY MADE PHARMACIST AWARE NO VANCO TROUGH AVAILABLE, PER PHARMACIST HOLD MEDICATION UNTIL LAB VALUES ARE RECEIVED.
--- NOTE | 2019-11-04 09:55 | NUR ---
MADELIN AMOR CALL LAB AGAIN FOR LAB DRAW. PER CERTIFIED CODER THEY WILL SEND SOMEONE TO COME DRAW.
[2019-11-04] MEDS: VANCOMYCIN 1GM/250ML 250 ML IV SCH (09:59)
[2019-11-04] MEDS: FLUCONAZOLE 200MG/100ML 100 ML IV SCH (10:06)
[2019-11-04] MEDS: FUROSEMIDE 20 MG/2 ML VIAL IV SCH ×2 (10:07→22:40)
[2019-11-04] MEDS: DOXYCYCLINE 100 MG TAB/CAP PO SCH ×2 (10:08→22:41)
[2019-11-04] MEDS: ZINC SULFATE 220mg CAP or TAB PO SCH (10:08)
[2019-11-04] MEDS: FAMOTIDINE 20 MG TAB PO SCH ×2 (10:08→22:41)
[2019-11-04] MEDS: DexAMETHasone 4 MG TAB PO SCH ×2 (10:08→22:41)
[2019-11-04] MEDS: CHOLECALCIFEROL (VITD3) 1,000UNIT=25mCg TAB PO SCH (10:09)
[2019-11-04] MEDS: ENOXAPARIN SOD 40 MG/0.4 ML SYRINGE SC SCH (10:09)
[2019-11-04] MEDS: ASCORBIC ACID 1,000 MG TAB PO SCH (10:09)
[2019-11-04] MEDS: POTASSIUM EFFERVESENT TAB 25 MEQ PO SCH (10:10)
[2019-11-04 10:42] LABS: Basophils # (auto) 0 10 ^3/uL (0-0.2); Basophils % (auto) 0.1 % (0.0-2.0); Eosinophils # (auto) 0 10 ^3/uL (0-0.8); Eosinophils % (auto) 0.1 % (0.0-7.0); Hematocrit 50.5 % (36.0-46.0); Hemoglobin 16.4 g/dL (12.2-16.2); Lymphocytes # (auto) 1.5 10 ^3/uL (0.4-5.4); Mean Corpuscular Hemoglobin 29.2 pg (28.0-32.0); Mean Corpuscular Hgb Conc. 32.5 g/dL (32.0-36.0); Monocytes # (auto) 0.6 10 ^3/uL (0-1.3); Neutrophils # (auto) 17.1 10 ^3/uL (1.6-8.6); Neutrophils % (auto) 88.8 % (37.0-80.0); Nucleated Red Blood Cells % 0.2 %; Platelet Count (auto) 186 10^3/uL (140-450); Red Blood Cells 5.61 10^6/uL (4.0-5.20); Red Cell Distribution Width 14.4 % (11.8-14.3); White Blood Cell 19.2 10^3/uL (4.4-10.8)
[2019-11-04 10:50] LABS: Albumin 2.4 g/dL (3.4-5.0)
[2019-11-04 10:54] LABS: BUN/Creatinine Ratio 37.5; Total Protein 7.5 g/dL (6.4-8.2)
--- NOTE | 2019-11-04 15:51 | NUR ---
Nutrition Followup Notes Pt wt is 72.5 kg Pt is positive for COVID. Pt is with a CCHO 60g diet, appetite is poor aeb ave 33% PO intake over 3 meals per RN doc. Will continue to monitor PO status, skin status, pertinent labs and weight trends. Will f/u in 3-5 days. Est energy needs 6245-6168 kcal (20-25 kcal/kg BW 74.4kg) Est protein needs 59-74g (0.8-1g/kg BW 74.4kg) Will reassess prn LABS: POC Gluc 254 H, Alb 2.7 L GI: Pt had 1 BM on 11/02 per RN doc BS: 18 mod risk. Refer to wound assessment report for full details. PES: Overweight r/t caloric intake in excess of needs aeb pt BMI is 29.1kg/m2 Comments 1) Continue to monitor po intake, labs, skin 2) Refer pt to OPD on DC 3) Continue current plan of care RECOMMENDATION Consider adding oral supplement Glucerna 1 carton BID or Ensure HP TID if pt po intake does not improve
[2019-11-04] MEDS: REMDESIVIR 100mg in NS 230ml DAILYx4DAYS (NO VENT) IV SCH (17:27)
--- NOTE | 2019-11-04 17:28 | NUR ---
PRE INFUSION VS (REMDESIVIR) STARTED REMDESIVIR INFUSION STARTED. PATIENT BP: 139/80, HR: 92, O2 SATURATION: 94%. NO S/S OF SOB/DISTRESS NOTED. WILL CONTINUE TO MONITOR.
--- NOTE | 2019-11-04 17:43 | NUR ---
15 MIN INFUSION VS (REMDESIVIR) 15 MIN. VS PATIENT BP: 134/95, HR:101, O2 SATURATION: 94%. NO S/S OF SOB/DISTRESS NOTED. WILL CONTINUE TO MONITOR.
--- NOTE | 2019-11-04 18:30 | NUR ---
POST INFUSION VS (REMDESIVIR) POST INFUSION VS. PATIENT BP: 144/81, HR: 92, O2 SATURATION: 92%. NO S/S OF SOB/DISTRESS NOTED. WILL CONTINUE TO MONITOR.
--- NOTE | 2019-11-04 19:30 | NUR ---
Opening Shift Note Patient sleeping with HOB >30, Assumed care of patient after waking up patient. Patient on 15 L non-rebreather. No S/S of distress/SOB or pain. Encourage patient to eat dinner. Instructed on POC and to call for assist PRN, will continue to monitor for changes Q1hr and PRN.
[2019-11-04] MEDS: ACETAMINOPHEN 650 mg PER 20 mL UD PO SCH (20:07)
[2019-11-04] MEDS: diphenhdrAMINE HCL 50 MG/1 ML VL IV SCH (20:07)
[2019-11-04] MEDS: methylPREDNISolone SOD SUCC 40 MG/ML VL IV SCH (20:07)
--- NOTE | 2019-11-04 20:15 | NUR ---
IV insertion IV access obtained, via clean sterile technique by inserting 22 gauge catheter at after 2 attempts. IV secured properly. No trauma to site. Patient tolerated well.
[2019-11-04] MEDS: TOCILIZUMAB 400 MG in SODIUM CHL 0.9% 80 ML IV SCH (21:25)
--- NOTE | 2019-11-04 22:13 | NUR ---
RT NOTE PT WAS SEEN BY RT FOR MDI TX. PT TOLERATES WELL VIA SPACER. PT RINSED MOUTH WITH WATER POST MDI TX. HR 103, RR18, BS CLEAR/DIMINISHED, POX 98% ON 2L NONREBREATHER. CONT ORDERED Addendum: 11/04/19 at 2239 by Maria Luisa Ragland RT Amended: Links added. Addendum: 11/04/19 at 2242 by Maria Luisa Ragland RT CHARTING ERROR: NRB AT 12 L NOT 2L
[2019-11-04] MEDS: ATORVASTATIN 20 MG TAB PO SCH (22:41)
[2019-11-05] VITALS (7 sets, daily range): BP systolic 119–154; BP diastolic 76–96
[2019-11-05] MEDS: InsuLIN REG 1unit/0.01ml Soln (100units/ml) SC SCH ×5 (00:28→23:49)
[2019-11-05] MEDS: ACCU-CHEK COMFORT CURVE STRIP VI SCH ×5 (00:28→23:49)
[2019-11-05] MEDS: MEROPENEM 1GM IVPB 100 ML IV SCH ×3 (06:32→23:49)
[2019-11-05] MEDS: LEVOTHYROXINE SODIUM 100 MCG TAB PO SCH (06:32)
[2019-11-05] MEDS: INSULIN LANTUS (GLARGINE) 1 /0.01ml (100units/ml) SC SCH ×2 (06:34→21:49)
[2019-11-05] MEDS: ALBUTEROL SULF HFA 90MCG INH 200DOSE IN SCH ×3 (06:49→21:34)
[2019-11-05 07:56] LABS: Calcium 8.8 mg/dL (8.5-10.1); Potassium 4.2 mmol/L (3.5-5.1)
[2019-11-05 07:59] LABS: BUN/Creatinine Ratio 45.3
[2019-11-05] MEDS: methylPREDNISolone SOD SUCC 40 MG/ML VL IV SCH (08:13)
[2019-11-05] MEDS: diphenhdrAMINE HCL 50 MG/1 ML VL IV SCH (08:13)
[2019-11-05] MEDS: ACETAMINOPHEN 650 mg PER 20 mL UD PO SCH (08:14)
[2019-11-05] MEDS: TOCILIZUMAB 400 MG in SODIUM CHL 0.9% 80 ML IV SCH (09:48)
[2019-11-05] MEDS: LINEZOLID 600MG TABLET PO SCH ×2 (09:55→21:48)
[2019-11-05] MEDS: ZINC SULFATE 220mg CAP or TAB PO SCH (10:00)
[2019-11-05] MEDS: FUROSEMIDE 20 MG/2 ML VIAL IV SCH ×2 (10:00→21:48)
[2019-11-05] MEDS: DexAMETHasone 4 MG TAB PO SCH ×2 (10:00→21:48)
[2019-11-05] MEDS: ASCORBIC ACID 1,000 MG TAB PO SCH (10:01)
[2019-11-05] MEDS: POTASSIUM EFFERVESENT TAB 25 MEQ PO SCH (10:01)
[2019-11-05] MEDS: CHOLECALCIFEROL (VITD3) 1,000UNIT=25mCg TAB PO SCH (10:02)
[2019-11-05] MEDS: FLUCONAZOLE 200MG/100ML 100 ML IV SCH (10:04)
[2019-11-05] MEDS: FAMOTIDINE 20 MG TAB PO SCH ×2 (10:05→21:48)
[2019-11-05] MEDS: ENOXAPARIN SOD 40 MG/0.4 ML SYRINGE SC SCH (10:05)
--- NOTE | 2019-11-05 17:20 | NUR ---
PRE INFUSION VS (REMDESIVIR) STARTED REMDESIVIR INFUSION STARTED. PATIENT BP: 133/56, HR: 98, O2 SATURATION: 97%. NO S/S OF SOB/DISTRESS NOTED. WILL CONTINUE TO MONITOR.
[2019-11-05] MEDS: REMDESIVIR 100mg in NS 230ml DAILYx4DAYS (NO VENT) IV SCH (17:23)
--- NOTE | 2019-11-05 17:35 | NUR ---
15 MIN INFUSION VS (REMDESIVIR) 15 MIN. VS PATIENT BP: 141/71, HR:100, O2 SATURATION: 97%. NO S/S OF SOB/DISTRESS NOTED. WILL CONTINUE TO MONITOR.
--- NOTE | 2019-11-05 18:30 | NUR ---
POST INFUSION VS (REMDESIVIR) POST INFUSION VS. PATIENT BP: 117/79, HR: 110, O2 SATURATION: 92%. NO S/S OF SOB/DISTRESS NOTED. WILL CONTINUE TO MONITOR.
--- NOTE | 2019-11-05 19:40 | NUR ---
Opening Shift Note Assumed care of patient, awake and alert. No S/S of distress/SOB or pain. Patient in high oneal eating dinner independently, patient on 15L non-rebreather. Instructed on POC and to call for assist PRN, will continue to monitor for changes Q1hr and PRN.
[2019-11-05] MEDS: ATORVASTATIN 20 MG TAB PO SCH (21:48)
[2019-11-05] MEDS: ACETAMINOPHEN 325 MG TAB PO PRN (21:48)
[2019-11-06 05:21] VITALS: BP 134/76
[2019-11-06] MEDS: InsuLIN REG 1unit/0.01ml Soln (100units/ml) SC SCH ×4 (06:39→23:55)
[2019-11-06] MEDS: ACCU-CHEK COMFORT CURVE STRIP VI SCH ×4 (06:39→23:52)
[2019-11-06] MEDS: LEVOTHYROXINE SODIUM 100 MCG TAB PO SCH (06:39)
[2019-11-06] MEDS: MEROPENEM 1GM IVPB 100 ML IV SCH ×3 (06:39→23:55)
[2019-11-06] MEDS: INSULIN LANTUS (GLARGINE) 1 /0.01ml (100units/ml) SC SCH ×2 (06:40→21:27)
[2019-11-06] MEDS: ALBUTEROL SULF HFA 90MCG INH 200DOSE IN SCH ×3 (06:45→21:55)
--- NOTE | 2019-11-06 08:30 | NUR ---
WOUND NOTED TO PATIENTS L BUTTOCK.
[2019-11-06 08:39] VITALS: BP 134/76
--- NOTE | 2019-11-06 09:00 | NUR ---
PATIENT SAT-UP IN CHAIR FOR BREAKFAST. NO S/S OF DISTRESS NOTED AT THIS TIME.
[2019-11-06] MEDS: ENOXAPARIN SOD 40 MG/0.4 ML SYRINGE SC SCH (09:32)
[2019-11-06] MEDS: FUROSEMIDE 20 MG/2 ML VIAL IV SCH (09:49)
[2019-11-06] MEDS: FLUCONAZOLE 200MG/100ML 100 ML IV SCH (09:49)
[2019-11-06] MEDS: FAMOTIDINE 20 MG TAB PO SCH ×2 (09:50→21:26)
[2019-11-06] MEDS: POTASSIUM EFFERVESENT TAB 25 MEQ PO SCH (09:50)
[2019-11-06] MEDS: ASCORBIC ACID 1,000 MG TAB PO SCH (09:50)
[2019-11-06] MEDS: CHOLECALCIFEROL (VITD3) 1,000UNIT=25mCg TAB PO SCH (09:50)
[2019-11-06] MEDS: DexAMETHasone 4 MG TAB PO SCH (09:50)
[2019-11-06] MEDS: ZINC SULFATE 220mg CAP or TAB PO SCH (09:50)
[2019-11-06] MEDS: LINEZOLID 600MG TABLET PO SCH ×2 (09:51→21:26)
[2019-11-06] MEDS: ENOXAPARIN SOD 80 MG/0.8ML SYRINGE SC SCH ×2 (09:51→21:26)
--- NOTE | 2019-11-06 11:15 | NUR ---
PATIENT OXYGEN TITRATED DOWN TO 15L NON REBREATHER.
--- NOTE | 2019-11-06 11:21 | NUR ---
Jackie SCALES AT BEDSIDE. INFORMED OF PATIENT STATUS. NO NEW ORDERS RECEIVED.
[2019-11-06 11:36] LABS: Basophils # (auto) 0 10 ^3/uL (0-0.2); Basophils % (auto) 0.1 % (0.0-2.0); Eosinophils # (auto) 0 10 ^3/uL (0-0.8); Eosinophils % (auto) 0.1 % (0.0-7.0); Hematocrit 48.5 % (36.0-46.0); Hemoglobin 15.6 g/dL (12.2-16.2); Lymphocytes # (auto) 1.4 10 ^3/uL (0.4-5.4); Lymphocytes % (auto) 7.1 % (10.0-50.0); Mean Corpuscular Hemoglobin 29.3 pg (28.0-32.0); Mean Corpuscular Hgb Conc. 32.1 g/dL (32.0-36.0); Mean Corpuscular Volume 91.2 fL (80.0-100.0); Monocytes # (auto) 0.6 10 ^3/uL (0-1.3); Monocytes % (auto) 3.2 % (0.0-12.0); Neutrophils # (auto) 18.1 10 ^3/uL (1.6-8.6); Neutrophils % (auto) 89.5 % (37.0-80.0); Nucleated Red Blood Cells % 0.1 %; Platelet Count (auto) 213 10^3/uL (140-450); Red Blood Cells 5.32 10^6/uL (4.0-5.20); Red Cell Distribution Width 14.3 % (11.8-14.3); White Blood Cell 20.2 10^3/uL (4.4-10.8)
[2019-11-06 11:41] LABS: BUN/Creatinine Ratio 38.6; Potassium 4.4 mmol/L (3.5-5.1)
[2019-11-06 12:42] VITALS: BP 126/85
--- NOTE | 2019-11-06 13:00 | NUR ---
PATIENT SITTING IN CHAIR TO EAT LUNCH. NO S/S OF DISTRESS. PATIENT TOLERATING WELL.
--- NOTE | 2019-11-06 13:54 | NUR ---
PER Jackie FERNÁNDEZ TO ORDER PLASMA FOR PATIENT.
--- NOTE | 2019-11-06 15:39 | NUR ---
WOUND PHOTOS TAKEN AND PATIENT SAT BACK IN BED.
--- NOTE | 2019-11-06 16:30 | NUR ---
PATIENT TITRATED DOWN TO 13L NON REBREATHER. OXYGEN SATURATIONS AT 97-98%. NO S/S OF DISTRESS NOTED AT THIS TIME.
[2019-11-06 17:00] VITALS: BP 94/67
--- NOTE | 2019-11-06 17:15 | NUR ---
WOUND CARE NOTE: IN TO SEE PATIENT AT THIS TIME PER WOUND CARE CONSULT REQUEST. PATIENT NOTED UPON ASSESSMENT TO HAVE A SMALL SKIN TEAR TO THE LEFT BUTTOCK. WOUND PHOTO TAKEN AT THAT TIME BY BEDSIDE NURSE FOR REFERENCE, WOUND CONSULT ORDERED. [facility]. SHE IS COVID POSITIVE, IN COVID UNIT. PATIENT IS ABLE TO SELF TURN/REPOSITION SELF, BUT DOES GET SOB WHEN DOING SO. SHE IS NOTED TO HAVE 0.5 X 0.5 CM PARTIAL THICKNESS SKIN TEAR TO THE LEFT BUTTOCK, WITH SLOW BLANCHABLE REDNESS TO PERIWOUND. APPLIED ZGUARD, OPTIFOAM GENTLE DRESSING TO WOUND. PATIENT EDUCATED IN WOUND CARE/PRESSURE REDISTRIBUTION. PATIENT VERBALIZED UNDERSTANDING. D/T PATIENT'S WOUND AND LOW MOBILITY, WILL ORDER SPECIALTY AIR MATTRESS. PATIENT TO BE PLACED, PENDING DELIVERY BY YESSICA ROMERO. RECOMMEND: FREQUENT TURN SCHEDULE Q 2 HOURS, PRN CONDITION PERMITS, WITH PRESSURE REDISTRIBUTION USING PILLOWS/WEDGES, SPECIALTY AIR MATTRESS, BID/PRN APPLICATION WITH ZGUARD, OPTIFOAM GENTLE SACRAL DRESSING, DIETARY CONSULT, SKIN/WOUND CARE PLAN, CONTINUED MONITORING BY WOUND CARE TEAM. Addendum: 11/06/19 at 1917 by Kanika Hodges RN Amended: Links added.
[2019-11-06] MEDS ORDERED: hydrOXYchloroQUINE SULFATE 200 MG TAB PO SCH (17:32)
--- NOTE | 2019-11-06 18:24 | NUR ---
PATIENT CONSENTED TO TREATMENT OF PLAQUENIL.
--- NOTE | 2019-11-06 18:42 | NUR ---
patient states she wants to rethink taking remdesivir. She will have an answer by tomorrow morning.
--- NOTE | 2019-11-06 19:20 | NUR ---
Opening Shift Note Assumed care of patient, awake and alert. No S/S of distress/SOB or pain. Patient sitting up eating dinner independently, 13L non-rebreather. Instructed on POC and to call for assist PRN, will continue to monitor for changes Q1hr and PRN .
[2019-11-06 20:00] VITALS: BP 149/94
[2019-11-06] MEDS: methylPREDNISolone SOD SUCC 40 MG/ML VL IV SCH (21:25)
[2019-11-06] MEDS: ATORVASTATIN 20 MG TAB PO SCH (21:26)
[2019-11-06 22:00] VITALS: BP 149/94
--- NOTE | 2019-11-06 22:00 | NUR ---
Medication Refused Patient refused 2200 Plaquenil, according to patient she wants to think about it till tomorrow.
[2019-11-07 05:41] VITALS: BP 145/78
[2019-11-07] MEDS: MEROPENEM 1GM IVPB 100 ML IV SCH ×3 (06:37→23:24)
[2019-11-07] MEDS: ACCU-CHEK COMFORT CURVE STRIP VI SCH ×3 (06:37→17:42)
[2019-11-07] MEDS: InsuLIN REG 1unit/0.01ml Soln (100units/ml) SC SCH ×3 (06:37→17:49)
[2019-11-07] MEDS: LEVOTHYROXINE SODIUM 100 MCG TAB PO SCH (06:37)
[2019-11-07] MEDS: INSULIN LANTUS (GLARGINE) 1 /0.01ml (100units/ml) SC SCH ×2 (06:38→23:23)
[2019-11-07] MEDS: ALBUTEROL SULF HFA 90MCG INH 200DOSE IN SCH ×3 (06:40→23:26)
--- NOTE | 2019-11-07 07:30 | NUR ---
PATIENT HAD NO OPTIFOAM TO BOTTOM. NEW OPTIFOAM APPLIED TO AFFECTED AREA.
[2019-11-07 09:00] VITALS: BP 129/65
[2019-11-07] MEDS: THIAMINE 100mg/ml INJ (200mg/2ml VIAL) IV SCH (09:34)
[2019-11-07] MEDS: methylPREDNISolone SOD SUCC 40 MG/ML VL IV SCH ×2 (09:34→23:21)
[2019-11-07] MEDS: FLUCONAZOLE 200MG/100ML 100 ML IV SCH (09:34)
[2019-11-07] MEDS: ZINC SULFATE 220mg CAP or TAB PO SCH (09:34)
[2019-11-07] MEDS: FAMOTIDINE 20 MG TAB PO SCH ×2 (09:34→23:22)
[2019-11-07] MEDS: CHOLECALCIFEROL (VITD3) 1,000UNIT=25mCg TAB PO SCH (09:35)
[2019-11-07] MEDS: LINEZOLID 600MG TABLET PO SCH ×2 (09:35→23:22)
[2019-11-07] MEDS: ENOXAPARIN SOD 80 MG/0.8ML SYRINGE SC SCH ×2 (09:35→23:22)
[2019-11-07] MEDS: ASCORBIC ACID 1,000 MG TAB PO SCH (09:35)
--- NOTE | 2019-11-07 09:42 | NUR ---
PATIENT SITTING UP AT BEDSIDE TO EAT BREAKFAST.
[2019-11-07 10:00] VITALS: BP 129/65
[2019-11-07] MEDS ORDERED: hydrOXYchloroQUINE SULFATE 200 MG TAB PO SCH (10:00)
--- NOTE | 2019-11-07 14:07 | NUR ---
Nutrition Followup Notes Pt wt is 71.6 kg Pt is positive for COVID. Pt is with a CCHO 60g diet with adequate PO 75% x 4 per RN doc. Will continue to monitor PO status, skin status, pertinent labs and weight trends. Will f/u in 3-5 days. Est energy needs 3913-9490 kcal (20-25 kcal/kg BW 74.4kg), Est protein needs 59-74g (0.8-1g/kg BW 74.4kg). Will reassess prn LABS: POC Gluc 151 H GI: Pt had 1 BM today per RN doc BS: 20 low risk. Refer to wound assessment report for full details. PES: Overweight r/t caloric intake in excess of needs aeb pt BMI is 29.1kg/m2 Comments 1) Refer pt to OPD on DC. 2) Consider adding oral supplement Glucerna 1 carton BID or Ensure HP TID if pt po is inadequate. 3) Continue current plan of care
[2019-11-07] MEDS ORDERED: AZITHROMYCIN 250 MG TAB PO ONE (14:30)
[2019-11-07] MEDS ORDERED: hydrOXYchloroQUINE SULFATE 200 MG TAB PO ONE (14:30)
[2019-11-07 17:00] VITALS: BP 153/83
[2019-11-07 22:00] VITALS: BP 133/76
[2019-11-07] MEDS: ATORVASTATIN 20 MG TAB PO SCH (23:22)
[2019-11-08] MEDS: ACCU-CHEK COMFORT CURVE STRIP VI SCH ×4 (00:07→18:22)
[2019-11-08] MEDS: InsuLIN REG 1unit/0.01ml Soln (100units/ml) SC SCH ×4 (00:09→18:24)
[2019-11-08 04:47] VITALS: BP 129/81
[2019-11-08] MEDS: ALBUTEROL SULF HFA 90MCG INH 200DOSE IN SCH ×3 (06:38→21:00)
[2019-11-08] MEDS: MEROPENEM 1GM IVPB 100 ML IV SCH ×3 (07:10→23:35)
[2019-11-08] MEDS: LEVOTHYROXINE SODIUM 100 MCG TAB PO SCH (07:11)
[2019-11-08] MEDS: INSULIN LANTUS (GLARGINE) 1 /0.01ml (100units/ml) SC SCH ×2 (07:12→23:38)
--- NOTE | 2019-11-08 07:15 | NUR ---
Opening Shift Note Assumed care of patient, awake and alert x4. Patient is on 7 L Oxymizer mask at this time O2 Sat is at 94%. Patient denies pain at this time. Instructed on plan of care and encouraged patient to call for assistance as needed. Bed is locked in lowest position, side rails x 2 are up, and call light is within reach.
[2019-11-08 08:00] VITALS: BP 138/74
[2019-11-08 10:38] LABS: Basophils # (auto) 0 10 ^3/uL (0-0.2); Basophils % (auto) 0.1 % (0.0-2.0); Eosinophils # (auto) 0 10 ^3/uL (0-0.8); Eosinophils % (auto) 0.2 % (0.0-7.0); Hematocrit 48.9 % (36.0-46.0); Hemoglobin 15.6 g/dL (12.2-16.2); Lymphocytes # (auto) 1.4 10 ^3/uL (0.4-5.4); Lymphocytes % (auto) 8.2 % (10.0-50.0); Mean Corpuscular Hemoglobin 28.8 pg (28.0-32.0); Mean Corpuscular Hgb Conc. 31.9 g/dL (32.0-36.0); Mean Corpuscular Volume 90.3 fL (80.0-100.0); Monocytes # (auto) 0.4 10 ^3/uL (0-1.3); Monocytes % (auto) 2.4 % (0.0-12.0); Neutrophils # (auto) 14.7 10 ^3/uL (1.6-8.6); Neutrophils % (auto) 89.1 % (37.0-80.0); Platelet Count (auto) 199 10^3/uL (140-450); Red Blood Cells 5.42 10^6/uL (4.0-5.20); Red Cell Distribution Width 14.4 % (11.8-14.3); White Blood Cell 16.5 10^3/uL (4.4-10.8)
[2019-11-08] MEDS: THIAMINE 100mg/ml INJ (200mg/2ml VIAL) IV SCH (10:53)
[2019-11-08] MEDS: methylPREDNISolone SOD SUCC 40 MG/ML VL IV SCH ×2 (10:53→23:34)
[2019-11-08] MEDS: AZITHROMYCIN 250 MG TAB PO SCH (10:54)
[2019-11-08] MEDS: ENOXAPARIN SOD 80 MG/0.8ML SYRINGE SC SCH ×2 (10:54→23:35)
[2019-11-08] MEDS: FLUCONAZOLE 200MG/100ML 100 ML IV SCH (10:54)
[2019-11-08] MEDS: ZINC SULFATE 220mg CAP or TAB PO SCH (10:54)
[2019-11-08] MEDS: LINEZOLID 600MG TABLET PO SCH ×2 (10:55→23:34)
[2019-11-08] MEDS: FAMOTIDINE 20 MG TAB PO SCH ×2 (10:55→23:32)
[2019-11-08] MEDS: ASCORBIC ACID 1,000 MG TAB PO SCH (10:55)
[2019-11-08 10:56] LABS: BUN/Creatinine Ratio 43.1; Calcium 8.9 mg/dL (8.5-10.1)
[2019-11-08] MEDS: CHOLECALCIFEROL (VITD3) 1,000UNIT=25mCg TAB PO SCH (10:56)
[2019-11-08 12:00] VITALS: BP 123/60
[2019-11-08 17:00] VITALS: BP 139/91
[2019-11-08 21:54] VITALS: BP 129/79
[2019-11-08] MEDS: ATORVASTATIN 20 MG TAB PO SCH (23:34)
[2019-11-09] VITALS (9 sets, daily range): BP systolic 123–150; BP diastolic 65–92
--- NOTE | 2019-11-09 00:15 | NUR ---
CONSENTS SIGNED FOR PLASMA, CALLED BLOOD BANK. NO ANSWER, WILL CALL BACK IN THE AM.
[2019-11-09] MEDS: ACCU-CHEK COMFORT CURVE STRIP VI SCH ×5 (00:28→23:15)
[2019-11-09] MEDS: InsuLIN REG 1unit/0.01ml Soln (100units/ml) SC SCH ×5 (00:40→23:20)
--- NOTE | 2019-11-09 02:17 | NUR ---
SPOKE WITH INSULATION SPRAYER, STATES CONVALESCENT PLASMA ORDER IS PLACED.
[2019-11-09] MEDS: ALBUTEROL SULF HFA 90MCG INH 200DOSE IN SCH ×3 (06:02→21:35)
--- NOTE | 2019-11-09 06:02 | NUR ---
Respiratory note: MDI GIVEN BY RT, TOLERATED WELL. HR 97, RR 14, SPO2 92% 7 OXYMIZER, BS CLEAR. NO SIGNS OR SYMPTOMS OF RESPIRATORY DISTRESS NOTED. WILL CONTINUE TO MONITOR ORDERED.
[2019-11-09] MEDS: INSULIN LANTUS (GLARGINE) 1 /0.01ml (100units/ml) SC SCH ×2 (07:05→23:18)
[2019-11-09] MEDS: LEVOTHYROXINE SODIUM 100 MCG TAB PO SCH (07:05)
[2019-11-09] MEDS: MEROPENEM 1GM IVPB 100 ML IV SCH ×3 (07:06→22:44)
--- NOTE | 2019-11-09 07:19 | NUR ---
Opening Shift Note Assumed care of patient, awake and alert x4. Patient is on 7 L Oxymizer mask at this time O2 Sat is at 93%. Patient denies pain at this time. Instructed on plan of care and encouraged patient to call for assistance as needed. Bed is locked in lowest position, side rails x 2 are up, and call light is within reach.
[2019-11-09] MEDS: THIAMINE 100mg/ml INJ (200mg/2ml VIAL) IV SCH (10:00)
[2019-11-09] MEDS: CHOLECALCIFEROL (VITD3) 1,000UNIT=25mCg TAB PO SCH (10:19)
[2019-11-09] MEDS: FLUCONAZOLE 200MG/100ML 100 ML IV SCH (10:19)
[2019-11-09] MEDS: methylPREDNISolone SOD SUCC 40 MG/ML VL IV SCH ×2 (10:19→21:13)
[2019-11-09] MEDS: ENOXAPARIN SOD 80 MG/0.8ML SYRINGE SC SCH ×2 (10:20→21:15)
[2019-11-09] MEDS: ZINC SULFATE 220mg CAP or TAB PO SCH (10:20)
[2019-11-09] MEDS: ASCORBIC ACID 1,000 MG TAB PO SCH (10:20)
[2019-11-09] MEDS: LINEZOLID 600MG TABLET PO SCH ×2 (10:20→21:14)
[2019-11-09] MEDS: FAMOTIDINE 20 MG TAB PO SCH ×2 (10:20→21:14)
[2019-11-09] MEDS: AZITHROMYCIN 250 MG TAB PO SCH (10:20)
--- NOTE | 2019-11-09 13:53 | NUR ---
Convalescent Plasma transfusion initiated at this time VS- Temp 97.8, HR-103, BP-145/73, RR-20, O@sat
[2019-11-09] MEDS ORDERED: FUROSEMIDE 20 MG/2 ML VIAL IV ONE (14:45)
--- NOTE | 2019-11-09 15:40 | NUR ---
Plasma transfusion ended Patient tolerated well, no adverse reactions noted/reported. VS- temp-97.8, HR-108, RR-20, BP-142/75
--- NOTE | 2019-11-09 15:52 | NUR ---
Hold PT today, pt is receiving convalescent plasma.
--- NOTE | 2019-11-09 18:00 | NUR ---
Spoke with patient daughter Daughter updated on patient's condition. Daughter made aware that patient is now on 6L O2 via NC, O2 sat at 96%.
--- NOTE | 2019-11-09 19:10 | NUR ---
OPENING SHIFT NOTE: Assumed care of patient. Patient is awake, alert and oriented x 4, no s/s of SOB or distress, respirations even and unlabored, patient denies pain. Bed in lowest locked position with two side rails raised and all hanson within reach. Instructed on POC and encouraged to call for assistance, all questions and concerns addressed, patient verbalizes understanding. Will continue to monitor Q1 hr and PRN.
[2019-11-09] MEDS: ATORVASTATIN 20 MG TAB PO SCH (21:13)
[2019-11-10] VITALS (7 sets, daily range): BP systolic 124–137; BP diastolic 66–95
--- NOTE | 2019-11-10 04:59 | NUR ---
Oxygen Patient O2 saturations to 78% on 7L oximizer, increased O2 to 15L and O2 saturation increased to 84%. Oxygen changed to 15L non-rebreather, current O2 saturation 90%. Patient denies SOB and respirations are 28, even and unlabored. Will continue to monitor.
[2019-11-10] MEDS: LEVOTHYROXINE SODIUM 100 MCG TAB PO SCH (06:19)
[2019-11-10] MEDS: MEROPENEM 1GM IVPB 100 ML IV SCH ×2 (06:19→16:42)
[2019-11-10] MEDS: InsuLIN REG 1unit/0.01ml Soln (100units/ml) SC SCH ×3 (06:20→18:16)
[2019-11-10] MEDS: ACCU-CHEK COMFORT CURVE STRIP VI SCH ×3 (06:20→18:16)
[2019-11-10] MEDS: INSULIN LANTUS (GLARGINE) 1 /0.01ml (100units/ml) SC SCH (06:29)
[2019-11-10 06:43] LABS: Albumin 2.3 g/dL (3.4-5.0); BUN/Creatinine Ratio 46.5; Basophils # (auto) 0.1 10 ^3/uL (0-0.2); Basophils % (auto) 0.4 % (0.0-2.0); Calcium 8.3 mg/dL (8.5-10.1); Eosinophils # (auto) 0 10 ^3/uL (0-0.8); Eosinophils % (auto) 0.1 % (0.0-7.0); Hematocrit 43.8 % (36.0-46.0); Hemoglobin 14.2 g/dL (12.2-16.2); Lymphocytes # (auto) 1.5 10 ^3/uL (0.4-5.4); Lymphocytes % (auto) 9.9 % (10.0-50.0); Mean Corpuscular Hemoglobin 29.3 pg (28.0-32.0); Mean Corpuscular Hgb Conc. 32.5 g/dL (32.0-36.0); Mean Corpuscular Volume 90.1 fL (80.0-100.0); Monocytes # (auto) 0.4 10 ^3/uL (0-1.3); Monocytes % (auto) 2.6 % (0.0-12.0); Neutrophils # (auto) 12.8 10 ^3/uL (1.6-8.6); Nucleated Red Blood Cells % 0.1 %; Platelet Count (auto) 183 10^3/uL (140-450); Potassium 4.2 mmol/L (3.5-5.1); Red Blood Cells 4.86 10^6/uL (4.0-5.20); Red Cell Distribution Width 14.3 % (11.8-14.3); White Blood Cell 14.7 10^3/uL (4.4-10.8)
[2019-11-10 06:46] LABS: Bilirubin, Total 1.1 mg/dL (0.2-1.0)
[2019-11-10] MEDS: THIAMINE 100mg/ml INJ (200mg/2ml VIAL) IV SCH (10:08)
[2019-11-10] MEDS: ZINC SULFATE 220mg CAP or TAB PO SCH (10:08)
[2019-11-10] MEDS: ALBUTEROL SULF HFA 90MCG INH 200DOSE IN SCH ×3 (10:08→21:39)
[2019-11-10] MEDS: methylPREDNISolone SOD SUCC 40 MG/ML VL IV SCH ×2 (10:08→20:53)
[2019-11-10] MEDS: ENOXAPARIN SOD 80 MG/0.8ML SYRINGE SC SCH ×2 (10:09→20:56)
[2019-11-10] MEDS: FLUCONAZOLE 200MG/100ML 100 ML IV SCH (10:09)
[2019-11-10] MEDS: FAMOTIDINE 20 MG TAB PO SCH ×2 (10:09→20:54)
[2019-11-10] MEDS: ASCORBIC ACID 1,000 MG TAB PO SCH (10:09)
[2019-11-10] MEDS: AZITHROMYCIN 250 MG TAB PO SCH (10:09)
[2019-11-10] MEDS: CHOLECALCIFEROL (VITD3) 1,000UNIT=25mCg TAB PO SCH (10:09)
[2019-11-10] MEDS: FUROSEMIDE 20 MG/2 ML VIAL IV SCH (10:11)
[2019-11-10] MEDS: LINEZOLID 600MG TABLET PO SCH ×2 (10:13→20:55)
--- NOTE | 2019-11-10 14:08 | NUR ---
Nutrition Followup Notes Pt wt is 77.5 kg Pt is positive for COVID. Pt is with a CCHO 60g diet with adequate PO 75% x 3 per RN doc. Will continue to monitor PO status, skin status, pertinent labs and weight trends. Will f/u in 3-5 days. Est energy needs 5428-4731 kcal (20-25 kcal/kg BW 74.4kg), Est protein needs 59-74g (0.8-1g/kg BW 74.4kg). Will reassess prn LABS: POC Gluc 198 H, Alb 2.3 L GI: Pt had 1 BM today per RN doc BS: 20 low risk. Refer to wound assessment report for full details. PES: Overweight r/t caloric intake in excess of needs aeb pt BMI is 29.1kg/m2 Comments 1) Refer pt to OPD on DC. 2) Consider adding oral supplement Glucerna 1 carton BID or Ensure HP TID if pt po is inadequate. 3) Continue current plan of care
--- NOTE | 2019-11-10 19:20 | NUR ---
OPENING SHIFT NOTE: Assumed care of patient. Patient awake, alert and oriented x 4. No s/s or SOB or distress and patient denies pain. O2 saturation 94% on 12L oxymizer, respirations even and unlabored. Bed in lowest locked position with two side rails raised and call hanson within reach. Instructed on POC and encouraged to call for assistance, all questions and concerns addressed, patient verbalizes understanding. Will continue to monitor Q1 hr and PRN.
[2019-11-10] MEDS: ATORVASTATIN 20 MG TAB PO SCH (20:54)
--- NOTE | 2019-11-10 21:40 | NUR ---
RT NOTE PT WAS SEEN BY RT FOR MDI TX. PT TOLERATES ALBUTEROL WELL VIA SPACER. CONT ORDERED Addendum: 11/10/19 at 2140 by Maria Luisa Ragland RT Amended: Links added.
[2019-11-11] MEDS: ACCU-CHEK COMFORT CURVE STRIP VI SCH ×5 (00:01→23:24)
[2019-11-11 05:41] VITALS: BP 151/81
[2019-11-11] MEDS: InsuLIN REG 1unit/0.01ml Soln (100units/ml) SC SCH ×5 (06:02→23:24)
[2019-11-11] MEDS: LEVOTHYROXINE SODIUM 100 MCG TAB PO SCH (06:03)
[2019-11-11] MEDS: INSULIN LANTUS (GLARGINE) 1 /0.01ml (100units/ml) SC SCH ×3 (06:05→21:32)
[2019-11-11] MEDS: MEROPENEM 1GM IVPB 100 ML IV SCH ×4 (06:05→23:24)
[2019-11-11] MEDS: ALBUTEROL SULF HFA 90MCG INH 200DOSE IN SCH ×3 (06:46→21:55)
[2019-11-11 09:00] VITALS: BP 142/89
[2019-11-11] MEDS: THIAMINE 100mg/ml INJ (200mg/2ml VIAL) IV SCH (09:58)
[2019-11-11] MEDS: FLUCONAZOLE 200MG/100ML 100 ML IV SCH (09:58)
[2019-11-11] MEDS: methylPREDNISolone SOD SUCC 40 MG/ML VL IV SCH (09:59)
[2019-11-11] MEDS: FUROSEMIDE 20 MG/2 ML VIAL IV SCH (09:59)
[2019-11-11] MEDS: FAMOTIDINE 20 MG TAB PO SCH ×2 (09:59→21:31)
[2019-11-11] MEDS: LINEZOLID 600MG TABLET PO SCH ×2 (10:00→21:31)
[2019-11-11] MEDS: ENOXAPARIN SOD 80 MG/0.8ML SYRINGE SC SCH ×2 (10:00→21:32)
[2019-11-11] MEDS: CHOLECALCIFEROL (VITD3) 1,000UNIT=25mCg TAB PO SCH (10:00)
[2019-11-11 12:47] VITALS: BP 139/81
[2019-11-11 17:00] VITALS: BP 141/86
--- NOTE | 2019-11-11 19:40 | NUR ---
Opening Shift Note Assumed care of patient, awake and alert. No S/S of distress/SOB or pain. Instructed on POC and to call for assist PRN, will continue to monitor for changes Q1hr and PRN.
[2019-11-11 20:00] VITALS: BP 153/95
--- NOTE | 2019-11-11 20:10 | NUR ---
Titrated Oxygen Patient titrated to 15L-non rebreather due to SOB with exertion.
[2019-11-11] MEDS: ATORVASTATIN 20 MG TAB PO SCH (21:31)
[2019-11-11 22:00] VITALS: BP 153/95
--- NOTE | 2019-11-11 23:00 | NUR ---
Bed Bath Patient given a bed bath with TRIM STENCIL MAKER.
[2019-11-12 05:00] VITALS: BP 112/57
[2019-11-12] MEDS: InsuLIN REG 1unit/0.01ml Soln (100units/ml) SC SCH ×3 (06:00→18:00)
[2019-11-12] MEDS: INSULIN LANTUS (GLARGINE) 1 /0.01ml (100units/ml) SC SCH ×2 (06:19→21:58)
[2019-11-12] MEDS: ACCU-CHEK COMFORT CURVE STRIP VI SCH ×3 (06:19→18:00)
[2019-11-12] MEDS: LEVOTHYROXINE SODIUM 100 MCG TAB PO SCH (06:19)
[2019-11-12] MEDS: MEROPENEM 1GM IVPB 100 ML IV SCH ×2 (06:19→14:42)
[2019-11-12] MEDS: ALBUTEROL SULF HFA 90MCG INH 200DOSE IN SCH ×3 (06:37→22:46)
--- NOTE | 2019-11-12 08:00 | NUR ---
Received pt resting in bed, call light within reach, pt assisted to turn and reposition, O2 at 15 lit via Oxymizer, will continue to monitor pt.
[2019-11-12 09:00] VITALS: BP 153/83
[2019-11-12] MEDS: THIAMINE 100mg/ml INJ (200mg/2ml VIAL) IV SCH (09:42)
[2019-11-12] MEDS: FLUCONAZOLE 200MG/100ML 100 ML IV SCH (09:42)
[2019-11-12] MEDS: FAMOTIDINE 20 MG TAB PO SCH ×2 (09:43→21:57)
[2019-11-12] MEDS: predniSONE 20 MG TAB PO SCH (09:43)
[2019-11-12] MEDS: FUROSEMIDE 20 MG/2 ML VIAL IV SCH ×2 (09:43→21:59)
[2019-11-12] MEDS: CHOLECALCIFEROL (VITD3) 1,000UNIT=25mCg TAB PO SCH (09:43)
[2019-11-12] MEDS: LINEZOLID 600MG TABLET PO SCH ×2 (09:44→21:57)
[2019-11-12] MEDS: ENOXAPARIN SOD 80 MG/0.8ML SYRINGE SC SCH ×2 (09:44→21:57)
[2019-11-12] MEDS ORDERED: POTASSIUM EFFERVESENT TAB 25 MEQ PO ONE (12:00)
[2019-11-12 13:29] VITALS: BP 140/98
[2019-11-12 14:07] LABS: Basophils # (auto) 0 10 ^3/uL (0-0.2); Eosinophils # (auto) 0 10 ^3/uL (0-0.8); Eosinophils % (auto) 0.1 % (0.0-7.0); Hematocrit 49.5 % (36.0-46.0); Hemoglobin 16.3 g/dL (12.2-16.2); Lymphocytes # (auto) 2.3 10 ^3/uL (0.4-5.4); Lymphocytes % (auto) 14.4 % (10.0-50.0); Mean Corpuscular Hemoglobin 29.3 pg (28.0-32.0); Mean Corpuscular Volume 88.8 fL (80.0-100.0); Monocytes # (auto) 0.4 10 ^3/uL (0-1.3); Monocytes % (auto) 2.7 % (0.0-12.0); Neutrophils # (auto) 13.5 10 ^3/uL (1.6-8.6); Neutrophils % (auto) 82.8 % (37.0-80.0); Nucleated Red Blood Cells % 0.2 %; Platelet Count (auto) 198 10^3/uL (140-450); Red Blood Cells 5.57 10^6/uL (4.0-5.20); Red Cell Distribution Width 14.6 % (11.8-14.3); White Blood Cell 16.3 10^3/uL (4.4-10.8)
[2019-11-12 14:21] LABS: BUN/Creatinine Ratio 37.3; Calcium 8.7 mg/dL (8.5-10.1); Potassium 3.6 mmol/L (3.5-5.1)
[2019-11-12] MEDS: BUDESONIDE (INHALATION) 180 MCG IH IN SCH ×2 (14:40→22:46)
--- NOTE | 2019-11-12 15:20 | NUR ---
Pt's O2 sat at 89% with the oxymizer at 15 lit, placed at non rebreather mask at 15 lit, will continue to monitor pt.
[2019-11-12 17:00] VITALS: BP 146/109
[2019-11-12] MEDS ORDERED: Ensure HIGH Protein Chocolate 8oz Bottle PO SCH (18:15)
--- NOTE | 2019-11-12 19:50 | NUR ---
Opening Shift Note Assumed care of patient, awake and alert. No S/S of distress/SOB or pain. Patient on 15L non-rebreather. Instructed on POC and to call for assist PRN, will continue to monitor for changes Q1hr and PRN.
[2019-11-12 20:00] VITALS: BP 144/90
[2019-11-12] MEDS: ATORVASTATIN 20 MG TAB PO SCH (21:57)
[2019-11-12 22:00] VITALS: BP 144/90
--- NOTE | 2019-11-12 22:15 | NUR ---
Nose Bleed Patient bleeding from nose. Cleaned & educated patient to notified this RN if she bleeds again.
[2019-11-13] VITALS (8 sets, daily range): BP systolic 121–162; BP diastolic 80–90
[2019-11-13] MEDS: InsuLIN REG 1unit/0.01ml Soln (100units/ml) SC SCH ×4 (00:19→19:30)
[2019-11-13] MEDS: ACCU-CHEK COMFORT CURVE STRIP VI SCH ×4 (00:19→18:00)
[2019-11-13] MEDS: MEROPENEM 1GM IVPB 100 ML IV SCH ×2 (00:19→06:10)
[2019-11-13] MEDS: LEVOTHYROXINE SODIUM 100 MCG TAB PO SCH (06:11)
[2019-11-13] MEDS: INSULIN LANTUS (GLARGINE) 1 /0.01ml (100units/ml) SC SCH ×2 (06:11→22:00)
[2019-11-13] MEDS: ALBUTEROL SULF HFA 90MCG INH 200DOSE IN SCH ×3 (07:11→22:44)
[2019-11-13] MEDS: ENOXAPARIN SOD 80 MG/0.8ML SYRINGE SC SCH (10:00)
[2019-11-13] MEDS ORDERED: POTASSIUM EFFERVESENT TAB 25 MEQ PO SCH (10:00)
[2019-11-13] MEDS: BUDESONIDE (INHALATION) 180 MCG IH IN SCH ×2 (10:02→22:44)
[2019-11-13] MEDS: predniSONE 20 MG TAB PO SCH (10:47)
[2019-11-13] MEDS: Glucerna Carbsteady SHAKE Vanilla 8oz PO SCH ×3 (10:47→18:29)
[2019-11-13] MEDS: THIAMINE 100mg/ml INJ (200mg/2ml VIAL) IV SCH (10:47)
[2019-11-13] MEDS: FAMOTIDINE 20 MG TAB PO SCH ×2 (10:57→22:00)
[2019-11-13] MEDS: FUROSEMIDE 20 MG/2 ML VIAL IV SCH (10:57)
[2019-11-13] MEDS: CHOLECALCIFEROL (VITD3) 1,000UNIT=25mCg TAB PO SCH (10:57)
--- NOTE | 2019-11-13 11:30 | NUR ---
Received a call from radiology doctor, doctor reported for pt to have a large right pneumothorax, Dr. Aj at unit, doctor informed, paged Dr. Michael/ box spring upholsterer and left a message to inform him. Dr. Michael called back and doctor aware of cxr results.
--- NOTE | 2019-11-13 12:10 | NUR ---
Dr. Aj at bed side to see pt, doctor informed of the chest x-ray results. Doctor also informed that pt has been bleeding from her nose since yesterday and that the lovenox was held. As per doctor ok to hold the lovenox.
[2019-11-13] MEDS ORDERED: LIDOCAINE 2% (LOCAL ANESTH.) PF 5ml SDV ONE (12:16)
--- NOTE | 2019-11-13 13:10 | NUR ---
Dr. Mitchell inserted a chest tube to right chest, connected chest tube to continuous suction as per doctor's orders, air leak to number 1 noticed, doctor aware, doctor ordered dilaudid for pain, and held it due to low O2 sat of 85% to 88%. Will transfer pt to [facility], report given to Nick/MARNI.
[2019-11-13] MEDS ORDERED: HYDROmorphone HCL 2 MG/ML VL IV ONE (13:15)
--- NOTE | 2019-11-13 14:20 | NUR ---
PT IN [facility] ROOM 266 PT USING SIMPLE MASK, POX 98%. NO DISTRESS NOTED, BREATHING UNLABORED AN EVEN. CHEST TUBE CONNECTED TO SUCTIONING. CONNECTED TO MONITOR. BED LOCKED FOR SAFETY AND CALL LIGHT WITHIN REACH. PT VERBALIZED UNDERSTANDING OF SAFETY. WILL CONTINUE TO MONITOR.
--- NOTE | 2019-11-13 15:23 | NUR ---
Nutrition Followup Notes Pt wt is 78.7 kg Pt is positive for COVID. Pt is with a CCHO 60g diet with poor appetite aeb ave 44% x 4 PO intake per RN doc. Will continue to monitor PO status, skin status, pertinent labs and weight trends. Will f/u in 3-5 days. Est energy needs 6322-7901 kcal (20-25 kcal/kg BW 74.4kg), Est protein needs 59-74g (0.8-1g/kg BW 74.4kg). Will reassess prn LABS: POC Gluc 68 L, Alb 2.3 L GI: Pt had 1 BM on 11/11 per RN doc BS: 14 mod risk. Refer to wound assessment report for full details. PES: Overweight r/t caloric intake in excess of needs aeb pt BMI is 29.1kg/m2 Comments 1) Refer pt to OPD on DC. 2) Consider adding oral supplement Glucerna 1 carton BID or Ensure HP TID if pt po is inadequate. 3) Continue current plan of care
--- NOTE | 2019-11-13 16:14 | NUR ---
SON CALLED NO ANSWER.
[2019-11-13] MEDS ORDERED: DexAMETHasone SOD PHOS 10MG/1ML VIAL INJ IV ONE (17:45)
--- NOTE | 2019-11-13 17:57 | NUR ---
WOUND CARE NOTE: Wound Care attempted to see patient earlier at 1252 for wound reevaluation. Patient is having bedside procedure, chest tube insertion in Rm. 240A. Attempted to see patient again at this time, patient in SDU Rm. 266. Per RN Cash, recommendation to postpone reevaluation for today as patient can not tolerate movement/exertion and she becomes tachypneic , and desaturates when turned. Wound care will try to see patient again tomorrow.
[2019-11-13] MEDS: HYDROcodone-ACET 5/325MG TAB PO PRN (18:20)
--- NOTE | 2019-11-13 19:34 | NUR ---
CARE ENDORSED BREATHING EVEN AND UNLABORED. NO DISTRESS NOTED WITH POX 98%. REPORT GIVEN AND NOC RN SHOWN THAT CHEST TUBE IS SET TO SUCTION.
--- NOTE | 2019-11-13 19:52 | NUR ---
ADMITTED ON October WITH SOB, COUGH. INTIALLY ON TELEMETRY, DEVELOPED A LARGE PNEUMOTHORAX. DR MARINELLI PLACED A RIGHT CHEST TUBE . CT TO 20CM OF DRY SUCTION. NO DRNG SO FAR. SMALL AIR LEAK. ALERT. ORIENTED. SMALL RIGHT SIDED NOSE BLEED. SINUS TACHYCARDIA 101-103. NO ECTOPY. BP STABLE. ON 15LNRB MASK. O2 SATURATION 98%. USES THE BEDPAN. HAS A 20G RIGHT FOREARM. NO IVF RUNNING. DR PHIPPS HERE AT CHANGE OF SHIFT. CAUTIONED US TO BE CAREFUL OF THE CT, STATING THAT IT SHOULD BE MOVED IN FURTHER. CXR FOR AM. WBC OF 16.3. POTASSIUM OF 3.6 COVID +. STREP AND INFLUENZA NEGATIVE.
--- NOTE | 2019-11-13 20:30 | NUR ---
PATIENT GOT VERY SLEEPY WITH THE PREVIOUS NORCO. WHEN SHE WOKE UP, SHE IS VERY PLEASANT. SPEECH IS CLEAR. VERY COARSE, NONPRODUCTIVE COUGH. LUNGS DIMINISHED AND CLEAR. RIGHT SIDE SMALL CHEST TUBE. CREPITUS FELT BELOW AND LATERAL TO THE CHEST TUBE. LEVEL 1 AIR LEAK. CHEST TUBE DRESSING IS VERY SECURE. IV FLUSHED WITH NORMAL SALINE. OLD DRIED BLOOD NOTED AT THE ENTRANCE TO THE RIGHT NARE. ALL PULSES PALPABLE AND SLIGHTLY WEAK. STATED THAT SHE IS COMFORTABLE. NO NAUSEA. WHEN RESTING HER RR IS 14, BUT WHEN SHE IS AWAKE, HER SAT DROPS TO 93 AND RR GOES UP TO 25. + 2 PITTING EDEMA IN BOTH LEGS. CALL VARGAS AND PHONE WITHIN HER REACH. SINUS TACHYCARDIA WITHOUT ECTOPY. THIRSTY. DRANK SOME WATER.
[2019-11-13] MEDS: ATORVASTATIN 20 MG TAB PO SCH (22:00)
--- NOTE | 2019-11-13 22:30 | NUR ---
IN ROOM GIVING MEDS. WAKES UP EASILY. SPEECH CLEAR. SWALLOWED PILLS EASILY.
--- NOTE | 2019-11-14 00:30 | NUR ---
PATIENT IS PAIN FREE. SINUS TACHYCARDIA 100-105. CREPITUS REMAINS LATERALLY AND JUST BELOW THE CHEST TUBE SITE. NO INCREASE IN SIZE. LEVEL 1 AIR LEAK........................................................................................ ............................................................................................ ............................................................................................ ............................................................................................ ..................................
--- NOTE | 2019-11-14 02:00 | NUR ---
LEVEL 1 PLEURAVAC AIR LEAK. NO CHANGE. CREPITUS HAS NOT CHANGED. VSS.
[2019-11-14 03:43] VITALS: BP 114/82
[2019-11-14 04:08] LABS: Alanine Aminotransferase 69 U/L (13-56); Albumin 1.7 g/dL (3.4-5.0); Anion Gap 5 (5-15); Aspartate Aminotransferase 70 U/L (15-37); BUN/Creatinine Ratio 60.5; Blood Urea Nitrogen 26 mg/dL (7-18); Calcium 7.9 mg/dL (8.5-10.1); Carbon Dioxide 28 mmol/L (21-32); Chloride 104 mmol/L (98-107); GFR African American 186 mL/min; GFR Non-African American 153 mL/min; Glucose 62 mg/dL (74-106); Potassium 4.8 mmol/L (3.5-5.1); Sodium 137 mmol/L (136-145)
[2019-11-14 04:11] LABS: Alkaline Phosphatase 148 U/L (45-117); Bilirubin, Total 1.6 mg/dL (0.2-1.0); Total Protein 5.9 g/dL (6.4-8.2)
--- NOTE | 2019-11-14 04:30 | NUR ---
HR 117, RR18. PATIENT WANTS SOME WATER AND WANTS TO SIT UP. TOOK 100CC OF WATER. DESATURATED. IT TOOK HER SEVERAL MINUTES TO BRING HER SATURATION UP TO 90. CALLED RT FOR A TREATMENT. NEXT INHALER DUE AT 6AM. HAD HER COUGH. PER HER REQUEST, WE REMOVED THE HEAD PILLOW AND LAID HER DOWN SLIGHTLY. IT TOOK HER 15 MINUTES TO BRING THE HR DOWN TO 101 AND THE RR TO 15 WITH A SATURATION OF 95. MORE FREQUENT PVCS .
[2019-11-14] MEDS: ACCU-CHEK COMFORT CURVE STRIP VI SCH ×5 (06:00→22:00)
[2019-11-14] MEDS: InsuLIN REG 1unit/0.01ml Soln (100units/ml) SC SCH ×5 (06:00→22:00)
[2019-11-14] MEDS: LEVOTHYROXINE SODIUM 100 MCG TAB PO SCH (06:38)
[2019-11-14] MEDS: INSULIN LANTUS (GLARGINE) 1 /0.01ml (100units/ml) SC SCH ×2 (06:49→22:00)
[2019-11-14] MEDS: Glucerna Carbsteady SHAKE Vanilla 8oz PO SCH ×3 (07:36→18:00)
[2019-11-14 07:50] VITALS: BP 141/80
[2019-11-14 07:57] LABS: Hematocrit 48.5 % (36.0-46.0); Hemoglobin 15.7 g/dL (12.2-16.2); Mean Corpuscular Hemoglobin 29.1 pg (28.0-32.0); Mean Corpuscular Hgb Conc. 32.4 g/dL (32.0-36.0); Mean Corpuscular Volume 89.7 fL (80.0-100.0); Platelet Count (auto) 123 10^3/uL (140-450); Red Cell Distribution Width 14.7 % (11.8-14.3); White Blood Cell 14.8 10^3/uL (4.4-10.8)
[2019-11-14 08:04] LABS: Basophils % (manual) 0 (0.0-2.0); Blast Cells 0; Eosinophils % (manual) 0 (0-7); Metamyelocytes % 0; Myelocytes % 0; Promyelocytes % 0; Reactive Lymphocytes 0
[2019-11-14] MEDS ORDERED: POTASSIUM EFFERVESENT TAB 25 MEQ PO ONE (08:15)
[2019-11-14] MEDS ORDERED: FUROSEMIDE 40 MG/4 ML VIAL IV ONE (08:15)
[2019-11-14] MEDS: FAMOTIDINE 20 MG TAB PO SCH ×2 (08:56→22:00)
[2019-11-14] MEDS: methylPREDNISolone SOD SUCC 40 MG/ML VL IV SCH ×2 (08:56→22:00)
[2019-11-14] MEDS: CHOLECALCIFEROL (VITD3) 1,000UNIT=25mCg TAB PO SCH (08:56)
[2019-11-14] MEDS: THIAMINE 100mg/ml INJ (200mg/2ml VIAL) IV SCH (08:56)
[2019-11-14 09:25] LABS: Band Neutrophils % (manual) 2; Lymphocytes % (manual) 19 (10.0-50.0); Monocytes % (manual) 6 (0-12)
--- NOTE | 2019-11-14 09:40 | NUR ---
DAUGHTER CALLED: UPDATE FAMILY CALLED, UPDATED THEM ON PT'S CURRENT STATUS AND POC FOR TODAY. FAMILY TO CALL BACK LATER ON TODAY. CONTINUE CARE.
--- NOTE | 2019-11-14 09:59 | NUR ---
DR. SCALES CALLED: ORDERS MD UPDATED ON PT'S CURRENT STATUS, LABS AND POC FOR TODAY. ORDERS GIVEN. MAY PLACE GARZA CATHETER IN PATIENT, PER MD. OTHER ORDERS GIVEN AND TO BE CARRIED OUT. CONTINUE CARE.
[2019-11-14] MEDS ORDERED: FUROSEMIDE 40 MG/4 ML VIAL ONE (10:17)
[2019-11-14] MEDS: BUDESONIDE (INHALATION) 180 MCG IH IN SCH ×2 (10:25→22:04)
[2019-11-14] MEDS: ALBUTEROL SULF HFA 90MCG INH 200DOSE IN SCH ×3 (10:25→22:04)
--- NOTE | 2019-11-14 10:32 | NUR ---
Hold PT. Pt had chest tube placed and has been transferred to [facility]. Will re-evaluate for PT when new orders are received.
--- NOTE | 2019-11-14 10:35 | NUR ---
Michel catheter insertion Patient assessed and determined to be in need of michel catheter. Order obtained from DR. YORDY MD. Patient educated on catheter and reason for insertion. All questions answered. Michel catheter 16 guage [place]an inserted with clean sterile technique. Patient tolerated well. PATIENT ALSO GIVEN 4O MG IV LASIX AFTER INSERTION OF CATHETER.
[2019-11-14 11:40] VITALS: BP 145/75
--- NOTE | 2019-11-14 13:12 | NUR ---
WOUND CARE NOTE: Wound care in to see patient for skin integrity monitoring. Patient continue resting on air mattress in SDU Rm. 266. Patient is awake, alert and able to verbalize needs and follow direction. She's in no stated pain at this time. Patient is able to assist in turning and repositioning and her Lamberto score is 16. Skin assessment done with the assistance of patient's nurse, MARNI Yan. Patient's skin tear to L sacrum is much bigger measuring 5x2cm, with tiny skin tear to Rt sacrum. Skin tear is red with pink willow wound, scant serous drainage noted, no odor noted. Willow care given,applied Z Guard cream and covered sacrum with Opti foam sacral dressing. Patient's bilateral heels noted with intact skin with non-blanchable redness (Stage 1 pressure injury). Photograph of wounds are taken for reference. Repositioned patient for comfort facing her Lt side,redistributed pressure points with pillows and elevated heels on rolled blanket. Will bring foam boots for patient. Patient tolerated well.MARNI Yan at bedside. RECOMMENDATION: Lucina foam boots to BLE per MD order, continuation of all wound care orders prescribed by MD, continue with skin/wound plan of care, continue monitoring by wound care while patient is hospitalized. Addendum: 11/14/19 at 1751 by Barby Almanza RN Amended: Links added.
[2019-11-14 15:40] VITALS: BP 158/93
--- NOTE | 2019-11-14 19:51 | NUR ---
ADMITTED ON October WITH SOB, COUGH. INTIALLY ON TELEMETRY, DEVELOPED A LARGE PNEUMOTHORAX. DR MARINELLI PLACED A RIGHT CHEST TUBE . CT TO 20CM OF DRY SUCTION. NO DRNG SO FAR. SMALL AIR LEAK STOPPED AT 0600 THIS MORNING. ALERT. ORIENTED. SMALL RIGHT SIDED NOSE BLEED. NARE HAS DRIED BLOOD IN IT. SINUS TACHYCARDIA 101-131. NO ECTOPY. BP STABLE. ON 15LNRB MASK. O2 SATURATION 96%.NO LONGER USES THE BEDPAN. GARZA PLACED [id number] TODAY. LARGE AMOUNT OBTAINED. HAS A 20G RIGHT FOREARM. NO IVF RUNNING. DR PHIPPS HERE AT CHANGE OF SHIFT. CAUTIONED US TO BE CAREFUL OF THE CT, STATING THAT IT SHOULD BE MOVED IN FURTHER. CXR THIS MORNING SHOWED A STABLE CHEST TUBE. NEW COMMUNICATION ORDER TO HAVE IR PLACE A PIGTAIL CHEST TUBE. DR JASSO NO HERE. DR LAWSON NOTIFIED ON DAYS. WBC OF 16.3. POTASSIUM OF 3.6 COVID +. STREP AND INFLUENZA NEGATIVE. WOUND CARE HERE TODAY. NOTED NEW SKIN TEAR LEFT SACRUM WITH A SCANT AMOUNT OF SEROUS DRNG. HAS BILATERAL HEEL REDNESS, BLANCHABLE. FOAM BOOTS NOT AVAILABLE. OPTIFOAM ON COCCYX. HOLDING PHYSICAL THERAPY PER THEIR NOTE.
[2019-11-14 20:00] VITALS: BP 153/84
[2019-11-14] MEDS: ATORVASTATIN 20 MG TAB PO SCH (22:00)
--- NOTE | 2019-11-14 22:04 | NUR ---
Respiratory note: AT BEDSIDE FOR MDI. ATTEMPTED TO REMOVE PT FROM NRB MASK AND PLACE ON OXYMIZER, SPO2 DROPPED TO 85%. PT PLACED BACK ON NRB MASK AT 15L. SPO2 IMPROVED TO 94%. FITTER HAND AT BEDSIDE TO HELP REPOSITIONED PT. SPO2 REMAINS AT 94%, NO DISTRESS NOTED. WILL CONTINUE TO MONITOR.
[2019-11-15] VITALS: BP 143/81
[2019-11-15 03:14] LABS: Basophils # (auto) 0 10 ^3/uL (0-0.2); Basophils % (auto) 0.2 % (0.0-2.0); Eosinophils # (auto) 0 10 ^3/uL (0-0.8); Hematocrit 49.4 % (36.0-46.0); Hemoglobin 15.9 g/dL (12.2-16.2); Lymphocytes # (auto) 1.3 10 ^3/uL (0.4-5.4); Lymphocytes % (auto) 7.8 % (10.0-50.0); Mean Corpuscular Hemoglobin 28.7 pg (28.0-32.0); Mean Corpuscular Hgb Conc. 32.1 g/dL (32.0-36.0); Mean Corpuscular Volume 89.4 fL (80.0-100.0); Monocytes # (auto) 0.4 10 ^3/uL (0-1.3); Monocytes % (auto) 2.4 % (0.0-12.0); Neutrophils # (auto) 14.9 10 ^3/uL (1.6-8.6); Neutrophils % (auto) 89.6 % (37.0-80.0); Nucleated Red Blood Cells % 0.1 %; Platelet Count (auto) 124 10^3/uL (140-450); Red Blood Cells 5.52 10^6/uL (4.0-5.20); Red Cell Distribution Width 14.6 % (11.8-14.3); White Blood Cell 16.6 10^3/uL (4.4-10.8)
[2019-11-15 03:37] LABS: INR 1.12 (0.9-1.15)
[2019-11-15 03:38] LABS: Albumin 2.5 g/dL (3.4-5.0); BUN/Creatinine Ratio 51.5; Total Protein 5.9 g/dL (6.4-8.2)
[2019-11-15 04:00] VITALS: BP 148/86
[2019-11-15] MEDS: ALBUTEROL SULF HFA 90MCG INH 200DOSE IN SCH ×3 (05:59→22:40)
[2019-11-15] MEDS: BUDESONIDE (INHALATION) 180 MCG IH IN SCH ×2 (05:59→22:40)
[2019-11-15] MEDS: InsuLIN REG 1unit/0.01ml Soln (100units/ml) SC SCH ×3 (06:13→18:13)
[2019-11-15] MEDS: ACCU-CHEK COMFORT CURVE STRIP VI SCH ×3 (06:39→18:13)
[2019-11-15] MEDS: LEVOTHYROXINE SODIUM 100 MCG TAB PO SCH (06:39)
[2019-11-15] MEDS: INSULIN LANTUS (GLARGINE) 1 /0.01ml (100units/ml) SC SCH ×2 (06:44→22:00)
[2019-11-15 08:20] VITALS: BP 154/86
[2019-11-15] MEDS: Glucerna Carbsteady SHAKE Vanilla 8oz PO SCH ×3 (09:00→18:00)
[2019-11-15] MEDS ORDERED: FUROSEMIDE 40 MG/4 ML VIAL IV SCH (10:00)
[2019-11-15] MEDS ORDERED: POTASSIUM EFFERVESENT TAB 25 MEQ PO SCH (10:00)
[2019-11-15] MEDS: FAMOTIDINE 20 MG TAB PO SCH ×2 (11:00→22:00)
[2019-11-15] MEDS: THIAMINE 100mg/ml INJ (200mg/2ml VIAL) IV SCH (11:00)
[2019-11-15] MEDS: methylPREDNISolone SOD SUCC 40 MG/ML VL IV SCH ×2 (11:00→22:00)
[2019-11-15] MEDS: CHOLECALCIFEROL (VITD3) 1,000UNIT=25mCg TAB PO SCH (11:00)
[2019-11-15 11:40] VITALS: BP 155/94
--- NOTE | 2019-11-15 13:06 | NUR ---
Resumed care at 0725, orders reviewed and ongoing assessments being done. Being treated for multiple problems and tested for Covid and is positive. In isolation per protocol. Upon arrival awake but very tired and voice low and soft. Able to move all extremities with sensation intact. Is able to communicate needs but becomes SOB upon activity. Maintaining on a NRM and at rest pulse oximetry measuring 90-93%. Easily desaturates upon activity, such as talking and eating. Pulse oximetry dropped down to 75% during am meal and medication administration. Holding lunch and giving sips of water. It took 40 minutes for am medications to be administered. Had to rest in between medications. Chest tube to right side connected to dry suction. Grade 1 level air leak noted. Received call this am from [employer] regarding am chest xray. Contacted Dr. Jones at [phone] and asked him to reviewed chest xray for possible need to replace chest tube. He stated that he would speak with Dr. Goldberg regarding above. Received call form [facility] director quality assurance and stated that Dr. Jones will defer any intervention to Dr. Michael (counter help). Spoke with Dr. Michael at [phone] and discussed case and forward data. Per Dr. Michael will be in later today. Did speak with daughter Lavern earlier today via phone for update.
[2019-11-15] MEDS ORDERED: HYDROmorphone HCL 2 MG/ML VL ONE (14:48)
[2019-11-15] MEDS ORDERED: LIDOCAINE 2% (LOCAL ANESTH.) PF 5ml SDV ONE (15:35)
[2019-11-15 17:20] VITALS: BP 129/79
[2019-11-15] MEDS ORDERED: TPN PER PHARMACY 0 ML IV SCH (18:00)
[2019-11-15] MEDS: SODIUM CHLORIDE 0.9% 1,000 ML IV SCH (18:30)
[2019-11-15] MEDS: SALINE 0.65 % NASAL SPRAY 45ML BOTTLE EACHNOSTRI SCH ×2 (18:40→22:00)
[2019-11-15] MEDS: DOXYCYCLINE 100MG/250ML 250 ML IV SCH (18:50)
--- NOTE | 2019-11-15 19:25 | NUR ---
Dr. Alexis resumed case from Dr. Aj. Discussed condition and plan of care. Dr. Alexis phoned Jadiel Sanchez (son) and discussed condition and plan of care. He discussed possible intubation, change of chest tube and placement of a central line or PICC line. Entered room with Dr. Alexis at 1445 and did not exit room until 1720. Procedure explained and Dr. Alexis went ahead and placed a 8 Fr chest catheter to right anterior chest wall without incident. Connected to dry suction -20CM H2o, no air leak noted and within 15 minutes noted improvement in pulse oximetry and in respiratory rate. Preceded to remove existing right chest tube that was dislodged. Area dressed with Vaseline gauze. Prior to procedure medicated with Dilaudid 0.25mg IVP. He attempted to place a central line and was unsuccessful. Call out to Dr. Daley who came in room and preceded to place a central line and was also unsuccessful. Per Dr. Alexis, ordered for PICC line placement. Multiple sticks to both right and left side of neck. No hematoma noted and areas remain soft. Chest xray done and confirmed new chest tube placement and no new pneumothorax. Vital signs have improved post chest tube insertion and no need to intubated at this time.
[2019-11-15 20:00] VITALS: BP 128/79
[2019-11-15] MEDS ORDERED: CLINIMIX PER PHARMACY IV NR (20:00)
--- NOTE | 2019-11-15 20:00 | NUR ---
ADMITTED ON October WITH SOB, COUGH. INTIALLY ON TELEMETRY, DEVELOPED A LARGE PNEUMOTHORAX. DR MARINELLI PLACED A RIGHT CHEST TUBE ON 11/12. CT TO 20CM OF DRY SUCTION. NO DRNG SO FAR. ALERT. ORIENTED. SMALL RIGHT SIDED NOSE BLEED. NARE HAS DRIED BLOOD IN IT. SINUS TACHYCARDIA 105-118. NO ECTOPY. BP STABLE. ON 15LNRB MASK. O2 SATURATION 99% .NO LONGER USES THE BEDPAN. GARZA PLACED [id number] 11/14/19. HAS A 20G RIGHT FOREARM. NS AND CLINIMIX RUNNING. NEW CHEST TUBE PLACED RIGHT ANTERIOR TODAY BY DR MARINELLI. WBC OF 16.3. COVID +. STREP AND INFLUENZA NEGATIVE. WOUND CARE HERE YESTERDAY. NOTED NEW SKIN TEAR LEFT SACRUM WITH A SCANT AMOUNT OF SEROUS DRNG. ALSO HAS A RIGHT BUTTOCK SKIN TEAR THAT IS VERY SMALL. BOTH HAVE Z GUARD ON THEM AND ARE COVERED BY A FOAM DRESSING. HAS BILATERAL HEEL REDNESS, BLANCHABLE. FOAM BOOTS NOT AVAILABLE. HOLDING PHYSICAL THERAPY PER THEIR NOTE. ANTERIOR CHEST TUBE TO 20CM OF DRY ATRIUM PRESSURE. NO DRNG. NO CREPITUS. NO AIR LEAK. PLAN IS FOR A PICC LINE TOMORROW. DIFFICULTY GETTING NUTRITION. DESATURATES QUICKLY WITH MASK OFF INTO THE 70S. SAT DOWN WITH HER. DISCUSSED COVID. SHE UNDERSTANDS HOW MUCH SHE IS STRUGGLING AND SHE IS WORRIED ABOUT IT. REALIZES SHE HAS GOTTEN ALL THE TREATMENTS. UNDERSTANDS WHY WE ARE ADDING CLINIMIX. OCEAN SPRAY INTO BOTH NOSTRILS . BLEW A SMALL AMOUNT OF WATERY BLOOD FROM THE NOSE. STATED THAT SHE LIKES ICE WATER AND IS ALWAYS THIRSTY. PITTING EDEMA IN ARMS AND LEGS.
[2019-11-15 20:23] LABS: Phosphorus 3.7 mg/dL (2.5-4.90)
--- NOTE | 2019-11-15 22:00 | NUR ---
GAVE HER A NORCO FOR THE SMALL AMOUNT OF PAIN FROM THE CHEST TUBE. IT MAKES HER SLEEPY AND IT BOOSTS HER O2 SATURATION. HR IS COMING DOWN. NO AIR LEAK IN ATRIUM CHAMBER.
[2019-11-16] MEDS ORDERED: DEXTROSE (50%) 50ML SYRG IV SCH
--- NOTE | 2019-11-16 | NUR ---
ASLEEP. SINUS TACHYCARDIA IMPROVING . RATE 108-113, NO ECTOPY. NO CHEST TUBE DRNG. NO CREPITUS. CT TO 20 ATRIUM PRESSURE. STABLE VISTAL SIGNS.
--- NOTE | 2019-11-16 02:00 | NUR ---
ST 113. O2 SAT 99%. RR 13. STABLE ON 15LNRB. URINE OUTPUT MARGINAL. ALWAYS THIRSTY.
[2019-11-16 04:00] VITALS: BP 145/79
--- NOTE | 2019-11-16 04:00 | NUR ---
LAB DRAWING BLOOD. WARMED UP ROOM. ADDED A BLANKET.VSS. HAS BEEN LESS ANXIOUS TONIGHT.
[2019-11-16] MEDS: DOXYCYCLINE 100MG/250ML 250 ML IV SCH ×2 (04:47→20:19)
--- NOTE | 2019-11-16 05:02 | NUR ---
CXR COMPLETED. OPTIFOAM ON COCCYX REMOVED. CLEANED THE 2 SKIN TEARS. MODERATE AMOUNT OF SEROUS DRNG ON IT. NEW OPTIFOAM APPLIED.
[2019-11-16 05:13] LABS: Albumin 2.2 g/dL (3.4-5.0); BUN/Creatinine Ratio 57.4; Calcium 7.2 mg/dL (8.5-10.1); Potassium 3.9 mmol/L (3.5-5.1)
[2019-11-16 05:18] LABS: Phosphorus 2.8 mg/dL (2.5-4.90); Pre Albumin 27.1 mg/dL (20.0-40.0); Total Protein 5.4 g/dL (6.4-8.2)
[2019-11-16] MEDS: ACCU-CHEK COMFORT CURVE STRIP VI SCH ×5 (05:36→23:41)
[2019-11-16] MEDS: SALINE 0.65 % NASAL SPRAY 45ML BOTTLE EACHNOSTRI SCH ×4 (05:36→23:40)
[2019-11-16] MEDS: InsuLIN REG 1unit/0.01ml Soln (100units/ml) SC SCH ×5 (05:58→23:41)
[2019-11-16] MEDS: LEVOTHYROXINE SODIUM 100 MCG TAB PO SCH (05:58)
[2019-11-16] MEDS: BUDESONIDE (INHALATION) 180 MCG IH IN SCH ×2 (06:42→23:55)
[2019-11-16] MEDS: ALBUTEROL SULF HFA 90MCG INH 200DOSE IN SCH ×3 (06:42→23:55)
--- NOTE | 2019-11-16 06:42 | NUR ---
RT NOTE: ATTEMPTED TO TITRATE TO SIMPLE MASK FROM NRB DUE TO SPO2 BEING 99%. PT DID NOT TOLERATE AT ALL. SPO2 DROPPED TO 80%. PLACED BACK ONTO NRB AND SPO2 RETURNED TO 98%. PT HAS RIGHT SIDED CHEST TUBE IN PLACE. WILL CONTINUE TO MONITOR.
[2019-11-16] MEDS: INSULIN LANTUS (GLARGINE) 1 /0.01ml (100units/ml) SC SCH ×2 (06:50→22:00)
[2019-11-16 08:00] VITALS: BP 157/83
[2019-11-16] MEDS: Glucerna Carbsteady SHAKE Vanilla 8oz PO SCH ×3 (08:00→18:00)
[2019-11-16] MEDS: SODIUM CHLORIDE 0.9% 1,000 ML IV SCH ×2 (09:55→20:18)
[2019-11-16] MEDS ORDERED: ENOXAPARIN SOD 40 MG/0.4 ML SYRINGE SC SCH (10:00)
[2019-11-16] MEDS ORDERED: ALPRAZolam 0.5 MG TAB PO PRN (10:45)
--- NOTE | 2019-11-16 10:46 | NUR ---
CALLED DR. ENNIS AND REQUESTED FOR ANTI- ANXIETY AND ANTI-DEPRESSION MEDICATION FOR PT. RX XANTAX. PT VERY ANXIOUS THIS AM WANTS TO GO AMA IS TIRED OF BEING IN THE HOSPITAL AND WANTED TO SPEAK TO HER SON. WILL CALL PT'S SON ONCE PT WAKES UP.
[2019-11-16] MEDS: methylPREDNISolone SOD SUCC 40 MG/ML VL IV SCH ×2 (11:13→22:00)
[2019-11-16] MEDS: THIAMINE 100mg/ml INJ (200mg/2ml VIAL) IV SCH (11:14)
[2019-11-16] MEDS: FAMOTIDINE 20 MG TAB PO SCH ×2 (11:15→23:42)
[2019-11-16] MEDS: CHOLECALCIFEROL (VITD3) 1,000UNIT=25mCg TAB PO SCH (11:15)
[2019-11-16] MEDS: ALPRAZolam 0.5 MG TAB PO PRN (11:16)
[2019-11-16 12:00] VITALS: BP 155/99
[2019-11-16] MEDS ORDERED: PANTOPRAZOLE 40 MG/10 ML VIAL INJ IV ONE (12:15)
--- NOTE | 2019-11-16 12:16 | NUR ---
Nutrition Consult/Followup Notes Wt: 75.8 kg Pt is positive for COVID. Pt is with a CCHO 60g diet with poor appetite with inadequate Po of < 50% x 5 per RN doc. pt now initiated on PN support @ 42 ml/hr providing 340 kcals and 42.5 gm proteins. pt with inadequate PN support Est energy needs [id number] kcal (20-25 kcal/kg BW 74.4kg), Est protein needs 59-74g (0.8-1g/kg BW 74.4kg). Will reassess prn LABS: BUN 35 H, GLU 256 H ALB 2.2 L, PREALB wnl, TG 160 H, CA 7.2 L GI: Pt had 1 BM on 11/11 per RN doc BS: 14 mod risk. Refer to wound assessment report for full details. PES: Overweight r/t caloric intake in excess of needs aeb pt BMI is 29.1kg/m2 Comments 1) Refer pt to OPD on DC. 2) Consider adding oral supplement Glucerna 1 carton BID if pt po is inadequate. 3) Advance PN support to meet > 75% of needs if pt continues to have poor PO. 4) Continue current plan of care
--- NOTE | 2019-11-16 14:02 | NUR ---
RT NOTE: UNABLE TO GIVE TX AT THIS TIME. DUE TO BEDSIDE PROCEDURE IN PROGRESS. VITALS OBTAINED OUTSIDE ROOM. WILL CONTINUE TO MONITOR.
--- NOTE | 2019-11-16 15:26 | NUR ---
PICC line placement Patient educated on need for PICC line placement. All risks and benefits explained and all questions and concerns addressed prior to procedure. Noted past medical history and allergies with no contraindications. INR and Plt counts within acceptable range. 5fr PICC line inserted via LEFT BASILIC vein using [employer]'s Site Rite US and Tip Location System. Sterile technique with maximum barrier precautions utilized. Blood return obtained from each of 3 lumens and each flushed easily with NS using proper technique. PICC secured with Stat-lock; biodisc and occlusive dressing applied. Stat portable chest x-ray obtained for PICC tip placement. *Baseline Arm Circumference 40CM. PICC lot #[id number]. INTERNAL LENGTH 48CM EXTERNAL LENGTH 0CM
[2019-11-16] MEDS ORDERED: LIDOCAINE 1% (LOCAL ANESTH.) PF 5ml SDV ID ONE (15:30)
[2019-11-16 16:00] VITALS: BP 136/84
[2019-11-16 16:40] VITALS: BP 145/79
--- NOTE | 2019-11-16 16:57 | NUR ---
OK to use PICC line Xray completed. OK to use PICC line by radiologyst..
[2019-11-16 18:26] LABS: Basophils # (auto) 0 10 ^3/uL (0-0.2); Basophils % (auto) 0.2 % (0.0-2.0); Eosinophils # (auto) 0.1 10 ^3/uL (0-0.8); Eosinophils % (auto) 0.3 % (0.0-7.0); Hematocrit 44.5 % (36.0-46.0); Hemoglobin 14.3 g/dL (12.2-16.2); Lymphocytes # (auto) 1.2 10 ^3/uL (0.4-5.4); Lymphocytes % (auto) 7.1 % (10.0-50.0); Mean Corpuscular Hemoglobin 28.7 pg (28.0-32.0); Mean Corpuscular Hgb Conc. 32.1 g/dL (32.0-36.0); Mean Corpuscular Volume 89.4 fL (80.0-100.0); Monocytes # (auto) 0.1 10 ^3/uL (0-1.3); Monocytes % (auto) 0.6 % (0.0-12.0); Neutrophils # (auto) 15.3 10 ^3/uL (1.6-8.6); Neutrophils % (auto) 91.8 % (37.0-80.0); Nucleated Red Blood Cells % 0.1 %; Platelet Count (auto) 87 10^3/uL (140-450); Red Blood Cells 4.98 10^6/uL (4.0-5.20); Red Cell Distribution Width 14.2 % (11.8-14.3); White Blood Cell 16.7 10^3/uL (4.4-10.8)
[2019-11-16 18:41] LABS: Albumin 2.2 g/dL (3.4-5.0); Calcium 8.1 mg/dL (8.5-10.1); Magnesium 2.8 mg/dL (1.6-2.6); Potassium 3.9 mmol/L (3.5-5.1)
[2019-11-16 18:45] LABS: BUN/Creatinine Ratio 48.4; Bilirubin, Total 1.9 mg/dL (0.2-1.0); Total Protein 5.2 g/dL (6.4-8.2)
[2019-11-16 20:00] VITALS: BP 129/71
[2019-11-16] MEDS ORDERED: PPN PER PHARMACY IV NR ×9 (20:00)
--- NOTE | 2019-11-16 20:00 | NUR ---
OPENING NOTE REPORT RECEIVED FROM CELI GRIDER. THIS IS A POSITIVE COVID PATIENT, ON NOVEL RESPIRATORY ISOLATION. PATIENT IS A/OX4 ON CONTINUOUS BEDSIDE MONITORS. PATIENT IS RUNNING SINUS TACHY ON THE MONITOR. PATIENT ON 15L NON REBREATHER WITH SPO2 AT 98%. PHYSICAL ASSESSMENT TO BE DONE-SEE INTERVENTIONS. WOUNDS TO LEFT AND RIGHT BUTTOCKS-SEE INTERVENTIONS. CHEST TUBE TO RIGHT ANTERIOR CHEST TO SUCTION, NO AIR LEAKS NOTED. GARZA DRAINING TO GRAVITY. CALL LIGHT WITHIN REACH.
[2019-11-16] MEDS: ENOXAPARIN SOD 80 MG/0.8ML SYRINGE SC SCH (22:00)
[2019-11-16] MEDS ORDERED: SODIUM CHLOR 0.9% PF (SALINE LOCK) 10ML VIAL/SYR IV SCH (22:00)
--- NOTE | 2019-11-16 22:45 | NUR ---
RT NOTE PT WAS SEEN BY RT FOR MDI TX. PT TOLERATES WELL . PT RINSED MOUTH POST TX. PICC LINE NOTED TO BE BLEEDING. MARNI ARREAGA NOTIFIED. ALL QUESTIONS ANSWERED. PT REQUESTING A SLEEPING PILL, MARNI NOTIFIED. Addendum: 11/16/19 at 2320 by Maria Luisa Ragland RT Amended: Links added.
--- NOTE | 2019-11-16 22:55 | NUR ---
PICC LINE RT ARIADNA NOTED THIS RN THAT PICC LINE SITE WAS BLEEDING EXCESSIVELY. THIS RN DONNED PROPER PPE AND ENTERED PATIENT ROOM. PICC LINE DRESSING FOUND COMPLETELY SATURATED IN BLOOD. PICC LINE NOTED TO BE PARTIALLY PULLED OUT. REMAINING PICC LINE REMOVED AND PRESSURE HELD AT SITE FOR 10 MINUTES. LARGE BRUISING TO LEFT ARM AROUND PICC SITE. WILL NOTIFY MD IMMEDIATELY.
--- NOTE | 2019-11-16 23:00 | NUR ---
PM CARE PATIENT GIVEN COMPLETE BED BATH AND LINEN CHANGE. COPIOUS AMOUNT OF BLOOD NOTED TO LINEN AND GOWN WHERE PICC LINE WAS BLEEDING FROM. PATIENT CLEANSED WITH WARM SOAPY WASH CLOTHS AND CHG WIPES. COMPLETE LINEN CHANGE PROVIDED. NEW GOWN PLACED ON PATIENT.
--- NOTE | 2019-11-16 23:49 | NUR ---
MD CALLED BACK SPOKE WITH UPDATED MD THAT PICC LINE WAS PARTIALLY DISLODGED WHEN THIS RN WENT INTO PATIENT ROOM AND SITE WAS BLEEDING PROFUSELY. PICC LINE COMPLETELY REMOVED, CATHETER FULLY INTACT. MANUAL PRESSURE APPLIED TO SITE FOR 10 MINUTES. ALSO NOTIFIED MD OF LOVENOX BEING HELD DUE TO EXCESSIVE BLEED FROM SITE. NEW TELEPHONE ORDERS FOR PICC LINE TO BE PLACED, AND PT/INR WITH MORNING LABS.
[2019-11-17] VITALS: BP 142/76
--- NOTE | 2019-11-17 02:00 | NUR ---
NO IV LINE NOTIFIED SUPERVISOR SUNGLASSES SADIE THAT PATIENT STILL DOES NOT HAVE IV LINE. MULTIPLE RN'S HAVE ATTEMPTED LINE PLACEMENT WITHOUT SUCCESS. SUPERVISOR SUNGLASSES TO CALL ER AND SEE IF ANY CERTIFIED RN'S CAN PLACE EJ AT THIS TIME.
--- NOTE | 2019-11-17 02:13 | NUR ---
Kaleb Jackson informed of no IV access. Kaleb Jackson was made aware of patient accidentally pulling out her IV and now has no IV access. Multiple nurses have attempted peripheril IV's with no success. Patient requires IV access at this time d/t medical condition and requiring IV medications. Kaleb jackson called ER for possible EJ placement by ER nurse. Awaiting for ER nurse to place EJ if possible.
--- NOTE | 2019-11-17 02:30 | NUR ---
AFIB RVR PATIENT WENT INTO AFIB RVR WITH HEART RATE REACHING HIGH 200BPM. PATIENT IMMEDIATELY CONVERTED BACK TO SINUS TACHY. EKG DONE ON PATIENT. WHILE EKG WAS BEING DONE, PATIENT WENT INTO AFIB RVR AGAIN AND THEN BACK O SINUS TACHY. EKG STRIPS PRINTED AND TO BE SEEN BY .
--- NOTE | 2019-11-17 02:40 | NUR ---
SPOKE WITH MD MD DALTON MADE AWARE OF PATIENT GOING INTO AFIB RVR. UPDATED MD THAT THERE IS STILL NO SUCCESS FOR IV LINE. MD NOT ABLE TO DO CENTRAL LINE AT THIS TIME. NEW ORDER FOR METOPROLOL 50MG PO NOW AND START BID. NEW ORDER FOR CARDIO CONSULT WELL. ORDERS READ BACK AND VERIFIED. WILL CARRY OUT ORDERS.
[2019-11-17] MEDS ORDERED: METOPROLOL TARTRATE 50 MG TAB PO ONE (03:00)
--- NOTE | 2019-11-17 03:00 | NUR ---
MD DALTON SIGNED EKG STRIPS. WILL PLACE IN PATIENTS HARD CHART.
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
[2019-11-17 04:00] VITALS: BP 108/55
[2019-11-17 04:26] LABS: INR 1.23 (0.9-1.15); Partial Thromboplastin Time 22.7 sec (23.0-31.2)
[2019-11-17 04:28] LABS: Albumin 2.3 g/dL (3.4-5.0); Calcium 7.8 mg/dL (8.5-10.1); Magnesium 2.6 mg/dL (1.6-2.6); Potassium 3.8 mmol/L (3.5-5.1)
[2019-11-17 04:31] LABS: BUN/Creatinine Ratio 42.6; Bilirubin, Total 2.2 mg/dL (0.2-1.0); Phosphorus 2.1 mg/dL (2.5-4.90); Total Protein 5.1 g/dL (6.4-8.2)
[2019-11-17] MEDS: DOXYCYCLINE 100MG/250ML 250 ML IV SCH ×2 (05:15→17:15)
--- NOTE | 2019-11-17 06:00 | NUR ---
WOUND CARE WOUND CARE TO SKIN TEARS TO RIGHT AND LEFT BUTTOCKS PER WOUND CARE NURSE RECOMMENDATION.
[2019-11-17] MEDS: ALBUTEROL SULF HFA 90MCG INH 200DOSE IN SCH ×3 (06:17→23:04)
[2019-11-17] MEDS: SALINE 0.65 % NASAL SPRAY 45ML BOTTLE EACHNOSTRI SCH ×4 (06:17→22:15)
[2019-11-17] MEDS: ACCU-CHEK COMFORT CURVE STRIP VI SCH ×4 (06:18→23:53)
[2019-11-17] MEDS: LEVOTHYROXINE SODIUM 100 MCG TAB PO SCH (06:18)
[2019-11-17] MEDS: INSULIN LANTUS (GLARGINE) 1 /0.01ml (100units/ml) SC SCH ×2 (06:26→22:16)
[2019-11-17] MEDS: InsuLIN REG 1unit/0.01ml Soln (100units/ml) SC SCH ×4 (06:26→23:54)
[2019-11-17 07:40] VITALS: BP 121/68
--- NOTE | 2019-11-17 07:41 | NUR ---
CLOSING PATIENT RESTING COMFORTABLY IN BED, CONNECTED TO CONTINUOUS BEDSIDE MONITORS. PATIENT IN SINUS TACHY ON MONITOR. STILL NO IV LINE ACCESS. MD DALTON, CRANE CREW SUPERVISOR AND ELECTRIC HOIST OPERATOR ALL AWARE OF THAT. GARZA DRAINING TO GRAVITY. 9ML SEROSANGUINEOUS OUT FROM CHEST TUBE. CARE ENDORSED TO DAYSHIFT MARNI STEPHEN.
--- NOTE | 2019-11-17 08:10 | NUR ---
I CALLED ROUTE DELIVERY MANAGER TO REQUEST A PICC LINE RN TO COME TO INSERT A PICC FOR PT. PT PULLED OUT PICC LINE LAST NIGHT. PT HAS NO IV ACCESS AND SHE IS A DIFFICULT STICK. I WILL CALL PT'S SON TO OBTAIN TELEPHONE CONSENT.
[2019-11-17] MEDS: FAMOTIDINE 20 MG TAB PO SCH ×2 (10:00→22:16)
[2019-11-17] MEDS: METOPROLOL TARTRATE 50 MG TAB PO SCH ×2 (10:00→22:00)
[2019-11-17] MEDS: CHOLECALCIFEROL (VITD3) 1,000UNIT=25mCg TAB PO SCH (10:00)
[2019-11-17] MEDS: ENOXAPARIN SOD 80 MG/0.8ML SYRINGE SC SCH ×2 (10:00→22:00)
[2019-11-17 11:40] VITALS: BP 136/76
--- NOTE | 2019-11-17 14:13 | NUR ---
I REMINDED ORGANIZATIONAL CONSULTANT MARSHA OF PICC LINE NECESSITY FOR PT ON ICU 266. PT HAS CONSENT ALREADY SIGNED. PT & INR SLIGHTLY ELEVATED. BUT OK FOR PICC LINE INSERTION.
[2019-11-17 15:17] LABS: Basophils # (auto) 0 10 ^3/uL (0-0.2); Basophils % (auto) 0.2 % (0.0-2.0); Eosinophils # (auto) 0.1 10 ^3/uL (0-0.8); Eosinophils % (auto) 0.8 % (0.0-7.0); Hematocrit 42.4 % (36.0-46.0); Hemoglobin 13.6 g/dL (12.2-16.2); Lymphocytes # (auto) 1.8 10 ^3/uL (0.4-5.4); Lymphocytes % (auto) 14.3 % (10.0-50.0); Mean Corpuscular Hemoglobin 28.7 pg (28.0-32.0); Mean Corpuscular Volume 89.7 fL (80.0-100.0); Monocytes # (auto) 0.5 10 ^3/uL (0-1.3); Neutrophils # (auto) 9.9 10 ^3/uL (1.6-8.6); Neutrophils % (auto) 80.7 % (37.0-80.0); Nucleated Red Blood Cells % 0.3 %; Platelet Count (auto) 74 10^3/uL (140-450); Red Blood Cells 4.73 10^6/uL (4.0-5.20); Red Cell Distribution Width 14.3 % (11.8-14.3); White Blood Cell 12.2 10^3/uL (4.4-10.8)
[2019-11-17 15:31] LABS: Albumin 2.1 g/dL (3.4-5.0); Calcium 7.9 mg/dL (8.5-10.1)
[2019-11-17 15:35] VITALS: BP 146/86
[2019-11-17 15:35] LABS: Bilirubin, Total 2.2 mg/dL (0.2-1.0); Total Protein 4.8 g/dL (6.4-8.2)
[2019-11-17] MEDS ORDERED: LIDOCAINE 1% (LOCAL ANESTH.) PF 5ml SDV ID ONE (16:30)
--- NOTE | 2019-11-17 16:40 | NUR ---
PICC line placement Patient AND Patient significant other educated on need for PICC line placement. All risks and benefits explained and all questions and concerns addressed prior to procedure. Noted past medical history and allergies with no contraindications. INR and Plt counts within acceptable range. 5 fr PICC line inserted via LEFT BASILIC vein using [employer]'s Site Rite US and Tip Location System. Sterile technique with maximum barrier precautions utilized. Blood return obtained from each of THE 3 lumens and each flushed easily with NS using proper technique. PICC secured with Stat-lock; biodisc and occlusive dressing applied. Stat portable chest x-ray obtained for PICC tip placement. *Baseline Arm Circumference 34 CM, INTERNAL LENGTH 36 CM, EXTERNAL LENGTH 0CM. PICC lot # [id number]. Note:
[2019-11-17] MEDS: BUDESONIDE (INHALATION) 180 MCG IH IN SCH ×2 (16:51→23:04)
--- NOTE | 2019-11-17 17:55 | NUR ---
OK to use PICC line Xray completed. OK to use PICC LINE. PRIMARY RN NOTIFIED
[2019-11-17] MEDS ORDERED: SODIUM PHOSPHATES 24 MEQ in SODIUM CHL 0.9% 100 ML IV ONE (18:00)
[2019-11-17] MEDS: Glucerna Carbsteady SHAKE Vanilla 8oz PO SCH ×3 (18:00→19:00)
[2019-11-17] MEDS: THIAMINE 100mg/ml INJ (200mg/2ml VIAL) IV SCH (18:31)
[2019-11-17] MEDS: methylPREDNISolone SOD SUCC 40 MG/ML VL IV SCH ×2 (18:32→22:16)
[2019-11-17 20:00] VITALS: BP 156/79
[2019-11-17] MEDS ORDERED: AMINO ACID INFUSION IV NR ×2 (20:00)
[2019-11-17] MEDS ORDERED: D5W IV NR ×2 (20:00)
[2019-11-17] MEDS ORDERED: INSULIN R IV NR ×2 (20:00)
[2019-11-17] MEDS: PANTOPRAZOLE 40 MG/10 ML VIAL INJ IV SCH (20:47)
[2019-11-17] MEDS: SODIUM CHLOR 0.9% PF (SALINE LOCK) 10ML VIAL/SYR IV SCH (22:15)
[2019-11-17 22:24] LABS: Urine Bacteria NONE SEEN /hpf (None Seen); Urine Blood Negative /uL (Negative); Urine Hyaline Cast FEW /lpf (0 - 2); Urine Mucus FEW (None Seen); Urine Specific Gravity 1.025 (1.001-1.035); Urine WBC <1 /hpf (0 - 5)
[2019-11-18] VITALS (7 sets, daily range): BP systolic 116–147; BP diastolic 67–94
[2019-11-18 03:06] LABS: Basophils # (auto) 0 10 ^3/uL (0-0.2); Basophils % (auto) 0.1 % (0.0-2.0); Eosinophils # (auto) 0 10 ^3/uL (0-0.8); Eosinophils % (auto) 0.1 % (0.0-7.0); Hematocrit 39.2 % (36.0-46.0); Hemoglobin 13.1 g/dL (12.2-16.2); Lymphocytes # (auto) 0.6 10 ^3/uL (0.4-5.4); Lymphocytes % (auto) 5.8 % (10.0-50.0); Mean Corpuscular Hemoglobin 29.8 pg (28.0-32.0); Mean Corpuscular Hgb Conc. 33.4 g/dL (32.0-36.0); Mean Corpuscular Volume 89.4 fL (80.0-100.0); Monocytes # (auto) 0 10 ^3/uL (0-1.3); Monocytes % (auto) 0.2 % (0.0-12.0); Neutrophils % (auto) 93.8 % (37.0-80.0); Nucleated Red Blood Cells % 0.1 %; Platelet Count (auto) 66 10^3/uL (140-450); Red Blood Cells 4.38 10^6/uL (4.0-5.20); Red Cell Distribution Width 14.5 % (11.8-14.3); White Blood Cell 10.7 10^3/uL (4.4-10.8)
[2019-11-18 03:24] LABS: Albumin 2.1 g/dL (3.4-5.0); Calcium 7.5 mg/dL (8.5-10.1); Magnesium 2.5 mg/dL (1.6-2.6); Potassium 3.8 mmol/L (3.5-5.1)
[2019-11-18 03:29] LABS: BUN/Creatinine Ratio 52.1; CRP High Sensitivity 0.06 mg/dL (< 0.3); Phosphorus 2.7 mg/dL (2.5-4.90); Total Protein 4.6 g/dL (6.4-8.2)
[2019-11-18] MEDS: DOXYCYCLINE 100MG/250ML 250 ML IV SCH (05:15)
[2019-11-18] MEDS: SALINE 0.65 % NASAL SPRAY 45ML BOTTLE EACHNOSTRI SCH ×4 (05:15→20:42)
[2019-11-18] MEDS: ACCU-CHEK COMFORT CURVE STRIP VI SCH ×4 (05:44→23:19)
[2019-11-18] MEDS: InsuLIN REG 1unit/0.01ml Soln (100units/ml) SC SCH ×4 (05:44→23:18)
[2019-11-18] MEDS: LEVOTHYROXINE SODIUM 100 MCG TAB PO SCH (06:12)
[2019-11-18] MEDS: INSULIN LANTUS (GLARGINE) 1 /0.01ml (100units/ml) SC SCH ×2 (06:23→20:43)
[2019-11-18] MEDS: ALBUTEROL SULF HFA 90MCG INH 200DOSE IN SCH ×3 (07:05→23:03)
[2019-11-18] MEDS: BUDESONIDE (INHALATION) 180 MCG IH IN SCH ×2 (07:05→23:03)
--- NOTE | 2019-11-18 07:05 | NUR ---
RESP MDI AND DPI GIVEN BY RT, TOLERATED WELL. PT RINSED MOUTH POST DPI. HR 77, RR 14, SPO2 97% ON 10 OXYMIZER, BS COARSE IE WHEEZES.
[2019-11-18] MEDS: Glucerna Carbsteady SHAKE Vanilla 8oz PO SCH ×3 (08:00→17:34)
--- NOTE | 2019-11-18 09:00 | NUR ---
Nutrition Patient does not have an appetite. Only 15% intake noted. Ensure provided and will encourage throughout day.
--- NOTE | 2019-11-18 09:05 | NUR ---
updated on patients status. Per , ok to administer Lovenox with plt count of 66.
[2019-11-18] MEDS: SODIUM CHLOR 0.9% PF (SALINE LOCK) 10ML VIAL/SYR IV SCH ×2 (09:08→20:42)
[2019-11-18] MEDS: ENOXAPARIN SOD 80 MG/0.8ML SYRINGE SC SCH (09:08)
[2019-11-18] MEDS: methylPREDNISolone SOD SUCC 40 MG/ML VL IV SCH ×2 (09:09→20:42)
[2019-11-18] MEDS: FAMOTIDINE 20 MG TAB PO SCH ×2 (09:09→20:41)
[2019-11-18] MEDS: CHOLECALCIFEROL (VITD3) 1,000UNIT=25mCg TAB PO SCH (09:09)
[2019-11-18] MEDS: PANTOPRAZOLE 40 MG/10 ML VIAL INJ IV SCH (09:09)
[2019-11-18] MEDS: METOPROLOL TARTRATE 50 MG TAB PO SCH ×2 (09:09→20:41)
[2019-11-18] MEDS ORDERED: cefTRIAXone 1GM/50ML D5W 50 ML IV ONE (12:00)
--- NOTE | 2019-11-18 12:00 | NUR ---
Family updated on pt status Family of MIRANDAINGRID updated on patient's status and condition. All questions and concerns addressed. Daughter verbalized understanding.
--- NOTE | 2019-11-18 12:03 | NUR ---
MD ROUNDS 'S ASSIGNMENT CHANGED. DR. MARINELLI UPDATED ON PATIENTS STATUS. PER MD, LOVENOX TO BE D/C' D. AWARE A.M. DOSE GIVEN. SEE MD NOTES.
--- NOTE | 2019-11-18 13:00 | NUR ---
Nutrition Patient does not have an appetite. Only 10% intake noted. Ensure provided and will encourage throughout day
--- NOTE | 2019-11-18 14:00 | NUR ---
COVID SAMPLE COLLECTED AND WALKED OVER TO LAB BY [employer].
--- NOTE | 2019-11-18 15:00 | NUR ---
Elimination Patient noted to have a small, soft brown bm. Skin cleansed. Partial linen change completed. Optifoam changed as ordered. Patient tolerated well.
--- NOTE | 2019-11-18 15:05 | NUR ---
Nutrition Followup Notes Wt: 72.0 kg Pt is positive for COVID. Pt is with a CCHO 60g diet along with glucerna 1 carton tid with poor appetite with inadequate Po of < 50% x 5 per RN doc. pt now initiated on PN support @ 42 ml/hr providing 340 kcals and 42.5 gm proteins. pt with inadequate PN support Est energy needs 2893-5102 kcal (20-25 kcal/kg BW 74.4kg), Est protein needs 59-74g (0.8-1g/kg BW 74.4kg). Will reassess prn LABS: GLU 204 H, BUN 25 H CA 7.5 L ALB 2.1 L GI: Pt had 1 BM on 11/11 per RN doc BS: 14 mod risk. Refer to wound assessment report for full details. PES: Overweight r/t caloric intake in excess of needs aeb pt BMI is 29.1kg/m2 Comments 1) Refer pt to OPD on DC. 2) Advance PN support to meet > 75% of needs if pt continues to have poor PO. 3) Continue current plan of care
--- NOTE | 2019-11-18 16:00 | NUR ---
Family updated on pt status Family of MIRANDAINGRID updated on patient's status and condition. All questions and concerns addressed. Daughter verbalized understanding.
--- NOTE | 2019-11-18 17:00 | NUR ---
ss IM Patient seemed agitated and refused to sign IM. Addendum: 11/19/19 at 0834 by Maryjane MCCORMACK Amended: Links added.
--- NOTE | 2019-11-18 18:08 | NUR ---
NO CHEST TUBE OUTPUT. NO AIR LEAK/ BUBBLING NOTED. RIGHT ANTERIOR CHEST TUBE DRESSING CDI.
--- NOTE | 2019-11-18 18:08 | NUR ---
02 PATIENT DESATURATED TO 87-88% ON 7L/MIN OXYMIZER. 02 INCREASED TO 9L/MIN . WILL CONTINUE TO MONITOR.
--- NOTE | 2019-11-18 18:31 | NUR ---
Patient status: Patient resting, pox 93% on 9L/min Oxymizer. HR 105 with pvc's noted. rr 22-25. No distress noted.
[2019-11-18] MEDS: TPN PER PHARMACY IV NR ×11 (20:00)
[2019-11-18] MEDS: HYDROcodone-ACET 5/325MG TAB PO PRN (20:41)
[2019-11-19] VITALS: BP 143/76
[2019-11-19 04:00] VITALS: BP 129/69
[2019-11-19 04:08] LABS: Basophils # (auto) 0 10 ^3/uL (0-0.2); Eosinophils # (auto) 0 10 ^3/uL (0-0.8); Eosinophils % (auto) 0.1 % (0.0-7.0); Hemoglobin 12.2 g/dL (12.2-16.2); Lymphocytes # (auto) 0.6 10 ^3/uL (0.4-5.4)
[2019-11-19 04:11] LABS: Basophils % (auto) 0.1 % (0.0-2.0); Hematocrit 36.7 % (36.0-46.0); Lymphocytes % (auto) 5.7 % (10.0-50.0); Mean Corpuscular Hemoglobin 29.7 pg (28.0-32.0); Mean Corpuscular Hgb Conc. 33.1 g/dL (32.0-36.0); Mean Corpuscular Volume 89.8 fL (80.0-100.0); Monocytes # (auto) 0.3 10 ^3/uL (0-1.3); Monocytes % (auto) 2.5 % (0.0-12.0); Neutrophils # (auto) 9.7 10 ^3/uL (1.6-8.6); Neutrophils % (auto) 91.6 % (37.0-80.0); Nucleated Red Blood Cells % 0.1 %; Platelet Count (auto) 57 10^3/uL (140-450); Red Blood Cells 4.09 10^6/uL (4.0-5.20); Red Cell Distribution Width 14.1 % (11.8-14.3); White Blood Cell 10.6 10^3/uL (4.4-10.8)
[2019-11-19 04:27] LABS: Calcium 7.4 mg/dL (8.5-10.1); Magnesium 2.2 mg/dL (1.6-2.6); Potassium 3.8 mmol/L (3.5-5.1)
[2019-11-19 04:31] LABS: BUN/Creatinine Ratio 47.9; Bilirubin, Total 1.2 mg/dL (0.2-1.0); Phosphorus 2.3 mg/dL (2.5-4.90); Total Protein 4.3 g/dL (6.4-8.2)
[2019-11-19] MEDS: SALINE 0.65 % NASAL SPRAY 45ML BOTTLE EACHNOSTRI SCH ×6 (05:58→22:00)
[2019-11-19] MEDS: InsuLIN REG 1unit/0.01ml Soln (100units/ml) SC SCH ×3 (05:59→23:18)
[2019-11-19] MEDS: ACCU-CHEK COMFORT CURVE STRIP VI SCH ×4 (05:59→23:19)
[2019-11-19] MEDS: LEVOTHYROXINE SODIUM 100 MCG TAB PO SCH (06:09)
[2019-11-19] MEDS: INSULIN LANTUS (GLARGINE) 1 /0.01ml (100units/ml) SC SCH ×2 (06:21→22:00)
[2019-11-19] MEDS: BUDESONIDE (INHALATION) 180 MCG IH IN SCH ×2 (06:25→22:14)
[2019-11-19] MEDS: ALBUTEROL SULF HFA 90MCG INH 200DOSE IN SCH ×3 (06:43→22:14)
--- NOTE | 2019-11-19 06:43 | NUR ---
Respiratory note: HR 77, RR 12, SPO2 98% ON 8 L OXYMIZER.BS COARSE. MDI AND DPI GIVEN BY RT, TOLERATED WELL. PT RINSED MOUTH AFTER DPI. NO SIGNS OR SYMPTOMS OF RESPIRATORY DISTRESS NOTED AT THIS TIME.
[2019-11-19 08:00] VITALS: BP 118/58
[2019-11-19] MEDS: Glucerna Carbsteady SHAKE Vanilla 8oz PO SCH ×3 (08:00→18:34)
--- NOTE | 2019-11-19 08:40 | NUR ---
RT NOTE FIO2 INCREASED TO 10L OXYMIZER DUE TO LOW POX READS IN THE LOW 80'S. RN AWARE OF CHANGES.
[2019-11-19] MEDS: METOPROLOL TARTRATE 50 MG TAB PO SCH ×2 (09:35→22:00)
[2019-11-19] MEDS: CHOLECALCIFEROL (VITD3) 1,000UNIT=25mCg TAB PO SCH (09:36)
[2019-11-19] MEDS: SODIUM CHLOR 0.9% PF (SALINE LOCK) 10ML VIAL/SYR IV SCH ×2 (10:00→22:00)
[2019-11-19] MEDS ORDERED: SODIUM PHOSPH 24MEQ(18MMOL) IN NS 100 ML IV ONE (10:00)
--- NOTE | 2019-11-19 10:26 | NUR ---
Family updated on pt status Family of INGRID JEAN updated on patient's status and condition after password verification. All questions and concerns addressed. Patient's daughter Tameka verbalized understanding.
[2019-11-19 12:00] VITALS: BP 154/78
[2019-11-19] MEDS ORDERED: POTASSIUM EFFERVESENT TAB 25 MEQ GT ONE (12:45)
[2019-11-19] MEDS ORDERED: FUROSEMIDE 20 MG TAB PO ONE (12:45)
[2019-11-19] MEDS: cefTRIAXone 1GM/50ML D5W 50 ML IV SCH (14:56)
[2019-11-19] MEDS: methylPREDNISolone SOD SUCC 40 MG/ML VL IV SCH ×2 (14:56→22:00)
[2019-11-19] MEDS: PANTOPRAZOLE 40 MG/10 ML VIAL INJ IV SCH (14:56)
[2019-11-19 16:00] VITALS: BP 149/70
[2019-11-19] MEDS: FAMOTIDINE 20 MG TAB PO SCH ×2 (18:33→22:00)
--- NOTE | 2019-11-19 19:45 | NUR ---
Opening Shift Note: A&Ox4, with periods of confusion present. Neuro: moves all extremities but is moderately weak; currently BR; per patient, baseline is independent without assistive devices; no numbness or tingling of extremities noted. Cardio: NSR 70s-ST 100s; SBP 140s-160s; radial pulses palpable, DP weak with +1 generalized pitting edema. Respiratory: currently on 10L O2 via Oxymizer; patient states she does not wear O2 at home; anterior lung sounds diminished; Right anterior chest tube to continuous suction with minimal serosang output; no air leak noted. Per report, this is the second CT patient has had related to her pulling out the first one. GI: poor oral intake; TPN @ 63 ml/hr until patient consumes 50% per meal per report; last BM per charting was 11/18/19. : Flores inserted on 11/14/19 for strict I/O. Skin: bilateral arm/abdominal bruising REGISTERED TRAVEL NURSE; Stage II PU to bilateral buttocks/sacrum: optifoam changed; bilateral heels blanchable redness CHRISSIE and floated on pillows. Specialty mattress in place. IV LUE PICC triple lumen inserted on 11/16/19. Cardiology consultation pending from 11/17/19 for previous Afib RVR/elevated troponin. POC discussed with patient and questions answered. Will continue to round and reposition prn.
[2019-11-19] MEDS: TPN PER PHARMACY IV NR ×11 (19:55)
[2019-11-19 20:00] VITALS: BP 168/87
[2019-11-19] MEDS ORDERED: TPN PER PHARMACY IV NR ×12 (20:00)
[2019-11-20] VITALS: BP 159/79
--- NOTE | 2019-11-20 02:15 | NUR ---
Patient bathe/linen change Patient given complete CHG bath. Skin integrity assessed for any changes. New optifoam placed on sacral wound after cleansing with wound cleanser. Linens and gown changed. Patient repositioned for comfort.
--- NOTE | 2019-11-20 03:21 | NUR ---
orthopedically impaired teacher hospitalist paged for prn BP medication: Blood pressures have been sustaining in the 170s-180s.
[2019-11-20] MEDS ORDERED: hydrALAZINE HCL 20 MG/ML VL IV ONE (04:15)
[2019-11-20] MEDS: ALPRAZolam 0.5 MG TAB PO PRN (05:00)
--- NOTE | 2019-11-20 05:13 | NUR ---
call circuit worker hospitalist paged for possible alternative oxygen delivery method. Patient oxygen saturation sustaining 85-88% with levels in the 70s with hyperventilation on 15L Oxymizer. Nonrebreather attempted with same saturations at 85-88%. No precipitating events before oxygen desaturation, patient was sleeping. Patient is extremely anxious; xanax given PO. ABG STAT per protocol for status change. CXR just completed per attending physician order; pneumothorax assessment pending.
[2019-11-20] MEDS: SALINE 0.65 % NASAL SPRAY 45ML BOTTLE EACHNOSTRI SCH ×5 (05:22→23:19)
[2019-11-20] MEDS: InsuLIN REG 1unit/0.01ml Soln (100units/ml) SC SCH ×3 (05:22→18:00)
[2019-11-20] MEDS: LEVOTHYROXINE SODIUM 100 MCG TAB PO SCH (05:23)
[2019-11-20] MEDS: ACCU-CHEK COMFORT CURVE STRIP VI SCH ×3 (05:23→18:00)
[2019-11-20] MEDS: INSULIN LANTUS (GLARGINE) 1 /0.01ml (100units/ml) SC SCH ×2 (05:23→21:08)
[2019-11-20 05:53] LABS: Albumin 2.3 g/dL (3.4-5.0); Calcium 7.7 mg/dL (8.5-10.1); Magnesium 2.3 mg/dL (1.6-2.6)
[2019-11-20 05:56] LABS: Basophils # (auto) 0 10 ^3/uL (0-0.2); Basophils % (auto) 0.2 % (0.0-2.0); Eosinophils # (auto) 0 10 ^3/uL (0-0.8); Eosinophils % (auto) 0.1 % (0.0-7.0); Hematocrit 39.8 % (36.0-46.0); Lymphocytes # (auto) 0.7 10 ^3/uL (0.4-5.4); Lymphocytes % (auto) 6.7 % (10.0-50.0); Mean Corpuscular Hemoglobin 29.3 pg (28.0-32.0); Mean Corpuscular Hgb Conc. 32.7 g/dL (32.0-36.0); Mean Corpuscular Volume 89.5 fL (80.0-100.0); Monocytes # (auto) 0.3 10 ^3/uL (0-1.3); Monocytes % (auto) 2.6 % (0.0-12.0); Neutrophils # (auto) 9.8 10 ^3/uL (1.6-8.6); Neutrophils % (auto) 90.4 % (37.0-80.0); Nucleated Red Blood Cells % 0.1 %; Platelet Count (auto) 60 10^3/uL (140-450); Red Blood Cells 4.45 10^6/uL (4.0-5.20); Red Cell Distribution Width 14.4 % (11.8-14.3); White Blood Cell 10.8 10^3/uL (4.4-10.8)
[2019-11-20 05:57] LABS: BUN/Creatinine Ratio 42.6; Bilirubin, Total 1.2 mg/dL (0.2-1.0); Phosphorus 2.6 mg/dL (2.5-4.90); Total Protein 4.8 g/dL (6.4-8.2)
[2019-11-20] MEDS: BUDESONIDE (INHALATION) 180 MCG IH IN SCH ×2 (06:25→22:35)
[2019-11-20] MEDS: ALBUTEROL SULF HFA 90MCG INH 200DOSE IN SCH ×3 (06:25→22:35)
--- NOTE | 2019-11-20 06:55 | NUR ---
ABG results read to salesperson furniture hospitalist; paged RT for this patient to call physician per request.
[2019-11-20 07:35] VITALS: BP 138/69
[2019-11-20] MEDS: Glucerna Carbsteady SHAKE Vanilla 8oz PO SCH ×3 (08:00→18:00)
[2019-11-20] MEDS: HYDROcodone-ACET 5/325MG TAB PO PRN (10:00)
[2019-11-20] MEDS: SODIUM CHLOR 0.9% PF (SALINE LOCK) 10ML VIAL/SYR IV SCH ×2 (10:00→22:00)
[2019-11-20] MEDS: CHOLECALCIFEROL (VITD3) 1,000UNIT=25mCg TAB PO SCH (10:00)
--- NOTE | 2019-11-20 10:30 | NUR ---
Respiratory note: TOOK PATIENT OFF NRB TO EAT. PLACED PATIENT ON 15L OXYMIZER. PATIENT TOLERATING WELL. SPO2 97-100%.RN NANCY MAZARIEGOS.
[2019-11-20] MEDS: POTASSIUM EFFERVESENT TAB 25 MEQ GT SCH (11:16)
[2019-11-20] MEDS: PANTOPRAZOLE 40 MG/10 ML VIAL INJ IV SCH (11:16)
[2019-11-20] MEDS: cefTRIAXone 1GM/50ML D5W 50 ML IV SCH (11:16)
[2019-11-20] MEDS: methylPREDNISolone SOD SUCC 40 MG/ML VL IV SCH ×2 (11:17→23:02)
[2019-11-20] MEDS: FUROSEMIDE 20 MG TAB PO SCH (11:17)
[2019-11-20] MEDS: FAMOTIDINE 20 MG TAB PO SCH (11:18)
[2019-11-20] MEDS: METOPROLOL TARTRATE 50 MG TAB PO SCH ×2 (11:18→23:03)
--- NOTE | 2019-11-20 11:30 | NUR ---
PT PLACED ON OXYMIZER NO DISTRESS NOTED, POX 97%. WILL CONTINUE TO MONITOR.
[2019-11-20 11:45] VITALS: BP 139/79
[2019-11-20] MEDS ORDERED: FUROSEMIDE 20 MG/2 ML VIAL IV ONE (11:45)
[2019-11-20] MEDS ORDERED: POTASSIUM EFFERVESENT TAB 25 MEQ PO ONE (11:45)
--- NOTE | 2019-11-20 13:02 | NUR ---
Nutrition Followup Notes Wt: 75.6 kg Pt is positive for COVID. Pt is with TPN support @ 63 ml/hr providing 1230 kcals and 70 gm proteins. Pt with inadequate energy intake from PN support as it meets 66-86% of est caloric needs. Protein intake from PN support is adequate as it meets 95-153% of est protein needs. Will continue to monitor PO status, skin status, pertinent labs and weight trends. Will f/u in 2-3 days. Est energy needs 1449-5078 kcal (20-25 kcal/kg BW 74.4kg), Est protein needs 59-74g (0.8-1g/kg BW 74.4kg). Will reassess prn LABS: GLU 283 H, BUN 20 H CA 7.7 L ALB 2.3 L GI: Pt had 1 BM on 11/17 per RN doc BS: 12 high risk. Refer to wound assessment report for full details. PES: Overweight r/t caloric intake in excess of needs aeb pt BMI is 29.1kg/m2 Comments 1) Refer pt to OPD on DC. 2) Advance PN support to meet > 75% of needs if pt continues to have poor PO. 3) Continue current plan of care
[2019-11-20 15:35] VITALS: BP 147/73
--- NOTE | 2019-11-20 19:41 | NUR ---
PT RESTING IN BED NO DISTRESS NOTED. PHYSICAL ASSESSMENT UNDER INTERVENTIONS. BED LOCKED FOR SAFETY.
[2019-11-20 20:00] VITALS: BP 151/81
[2019-11-20] MEDS ORDERED: TPN PER PHARMACY IV NR ×12 (20:00)
--- NOTE | 2019-11-20 20:10 | NUR ---
Opening Shift Note Assumed care of patient, awake and alert. Noted some SOB on exertion. On Oxymizer at 10L/min. Full assessment done -refer interventions.Instructed on POC and to call for assist PRN, will continue to monitor for changes Q1hr and PRN.
--- NOTE | 2019-11-20 21:00 | NUR ---
PATIENT HAD A SMALL BM CLEANED, CHUX CHANGED
--- NOTE | 2019-11-20 22:35 | NUR ---
RT NOTE PT WAS SEEN BY RT FOR MDI TX. PT WAS ON 12L OXYMIZER, TITRATED TO 5L OXYMIZER WITH POX 95% WHEN RT WAS DONE WITH MDI TX. PT TOLERATES ALBUTEROL MDI VIA SPACER AND 2 PUFFS PULMICORT WELL. PT RINSED HER MOUTH POST TX. CONT ORDERED Addendum: 11/20/19 at 2311 by Maria Luisa Ragland RT Amended: Links added.
[2019-11-21] VITALS (7 sets, daily range): BP systolic 115–156; BP diastolic 74–90
[2019-11-21] MEDS: LEVOTHYROXINE SODIUM 100 MCG TAB PO SCH (05:51)
[2019-11-21 05:58] LABS: Basophils # (auto) 0 10 ^3/uL (0-0.2); Basophils % (auto) 0.1 % (0.0-2.0); Eosinophils # (auto) 0 10 ^3/uL (0-0.8); Eosinophils % (auto) 0.1 % (0.0-7.0); Hematocrit 38.3 % (36.0-46.0); Hemoglobin 12.8 g/dL (12.2-16.2); Lymphocytes % (auto) 9.1 % (10.0-50.0); Mean Corpuscular Hemoglobin 29.9 pg (28.0-32.0); Mean Corpuscular Hgb Conc. 33.5 g/dL (32.0-36.0); Mean Corpuscular Volume 89.2 fL (80.0-100.0); Monocytes # (auto) 0.3 10 ^3/uL (0-1.3); Monocytes % (auto) 2.6 % (0.0-12.0); Neutrophils # (auto) 9.6 10 ^3/uL (1.6-8.6); Neutrophils % (auto) 88.1 % (37.0-80.0); Nucleated Red Blood Cells % 0.1 %; Platelet Count (auto) 50 10^3/uL (140-450); Red Blood Cells 4.29 10^6/uL (4.0-5.20); Red Cell Distribution Width 14.7 % (11.8-14.3); White Blood Cell 10.8 10^3/uL (4.4-10.8)
[2019-11-21] MEDS: INSULIN LANTUS (GLARGINE) 1 /0.01ml (100units/ml) SC SCH ×2 (05:58→21:03)
[2019-11-21] MEDS: SALINE 0.65 % NASAL SPRAY 45ML BOTTLE EACHNOSTRI SCH ×7 (05:58→22:00)
--- NOTE | 2019-11-21 06:00 | NUR ---
PATIENT IS STILL WANTS TO SLEEP AND REST WILL DO CLEANING LATER
[2019-11-21 06:13] LABS: Calcium 8.2 mg/dL (8.5-10.1); Potassium 4.3 mmol/L (3.5-5.1)
[2019-11-21] MEDS: BUDESONIDE (INHALATION) 180 MCG IH IN SCH ×2 (07:02→22:27)
[2019-11-21] MEDS: ALBUTEROL SULF HFA 90MCG INH 200DOSE IN SCH ×3 (07:02→22:27)
--- NOTE | 2019-11-21 07:30 | NUR ---
REPORT RECEIVED FROM PHLEBOTOMY TECHNOLOGIST NURSE. PATIENT RESTING IN BED AT THIS TIME. RESPIRATIONS EVEN AND UNLABORED. NO SIGNS OF ACUTE DISTRESS NOTED. CALL LIGHT IN REACH, BED IN LOW POSITION. WILL CONTINUE TO MONITOR.
[2019-11-21] MEDS: Glucerna Carbsteady SHAKE Vanilla 8oz PO SCH ×3 (08:00→18:23)
[2019-11-21] MEDS: cefTRIAXone 1GM/50ML D5W 50 ML IV SCH (09:05)
[2019-11-21] MEDS: SODIUM CHLOR 0.9% PF (SALINE LOCK) 10ML VIAL/SYR IV SCH ×2 (09:49→22:00)
[2019-11-21] MEDS: methylPREDNISolone SOD SUCC 40 MG/ML VL IV SCH ×2 (09:49→21:04)
[2019-11-21] MEDS: PANTOPRAZOLE 40 MG TAB PO SCH (09:49)
[2019-11-21] MEDS: CHOLECALCIFEROL (VITD3) 1,000UNIT=25mCg TAB PO SCH (09:51)
[2019-11-21] MEDS: FUROSEMIDE 20 MG TAB PO SCH (09:51)
[2019-11-21] MEDS: METOPROLOL TARTRATE 50 MG TAB PO SCH ×2 (09:51→21:03)
[2019-11-21] MEDS: POTASSIUM EFFERVESENT TAB 25 MEQ GT SCH (09:52)
--- NOTE | 2019-11-21 11:05 | NUR ---
DR JOY AT BEDSIDE TO ASSESS PATENT AND DISCUSS PLAN OF CARE. MD MADE AWARE OF PATIENTS BLOOD SUGAR AND BLOOD PRESSURE BEING ELEVATED. PER MD WILL ADJUST MEDICATIONS AND START PATIENT ON SLIDING SCALE. ALL ORDERS NOTED IN CHART.
[2019-11-21] MEDS ORDERED: FUROSEMIDE 20 MG/2 ML VIAL IV ONE (11:15)
[2019-11-21] MEDS ORDERED: POTASSIUM EFFERVESENT TAB 25 MEQ PO ONE (11:15)
--- NOTE | 2019-11-21 11:25 | NUR ---
WOUND CARE NOTE: Wound care in to see patient for reevaluation of wounds and skin integrity monitoring. Patient continue resting on air mattress in SDU Rm. 266. Patient is awake, alert and able to verbalize needs and follow direction. She's in no stated pain at this time. Patient is able to assist in turning and repositioning and her Lamberto score is 12. Skin assessment done with the assistance of patient's nurse, MARNI Melendrez. Patient's L sacrum continue to display open partial thickness wound measuring 4x3.5cm. She developed another open partial thickness wound to her Rt sacrum measuring 3.5x1cm. Wounds are red with bright red willow wound,minimal serous drainage noted, no odor noted. Patient passed small amount of formed stool. Willow care given, linen changed. Applied Thera honey gauze to open wounds and covered sacrum with Opti foam sacral dressing. Applied Z Guard cream to lower buttocks. Patient's bilateral heels non-blanchable redness (Stage 1 pressure injury) looks improving, skin remain intact slowly blanching redness . New photograph of wounds are taken for reference. Applied Lucina foam boots to BLE. Repositioned patient for comfort facing her Rt side,redistributed pressure points with pillows. Dr. Mitchell arrived at bedside to see patient. Patient tolerated well, MARNI Melendrez at bedside. RECOMMENDATION: Daily/PRN dressing change to sacral wound with Thera honey application per MD order, continuation of all other wound care orders prescribed by MD, continue with skin/wound plan of care, continue monitoring by wound care while patient is hospitalized. Addendum: 11/21/19 at 1624 by Barby Almanza RN Amended: Links added.
--- NOTE | 2019-11-21 11:25 | NUR ---
WOUND CARE NURSE AT BEDSIDE TO ASSESS PATIENT.
[2019-11-21] MEDS ORDERED: DEXTROSE (50%) 50ML SYRG IV PRN (12:00)
[2019-11-21] MEDS: InsuLIN REG 1unit/0.01ml Soln (100units/ml) SC SCH ×2 (17:00→21:02)
[2019-11-21] MEDS: ACCU-CHEK COMFORT CURVE STRIP VI SCH ×2 (17:22→21:04)
--- NOTE | 2019-11-21 18:41 | NUR ---
UPDATED DAUGHTER ON PATIENT STATUS. ALL QUESTIONS AND CONCERNS ADDRESSED AT THIS TIME.
--- NOTE | 2019-11-21 19:45 | NUR ---
Opening Shift Note. Received report from day shift RN. pt. Pt alert and oriented times four. Full assessment done see interventions. Flores catheter intact, patent, and draining to gravity. Call light within reach. Pt denies any pain.
--- NOTE | 2019-11-21 21:30 | NUR ---
Pt saturations went from 90% to 83%. Tirated up on o2 to 10lpm on oxymizer. Pt noted to be having small anxiety. Pt did not relax after calming measures, will medicate with xanax per MD order.
--- NOTE | 2019-11-21 22:27 | NUR ---
AT BEDSIDE IN FULL PPE FOR INHALER AND DPI TX. TITRATED O2 FROM 10LPM TO 8LPM VIA OXYMIZER. MARNI Andresen. AWARE OF O2 CHANGE.
[2019-11-22] VITALS (7 sets, daily range): BP systolic 117–150; BP diastolic 75–93
--- NOTE | 2019-11-22 04:15 | NUR ---
Respiratory note: At bedside in full ppe. due to covid precautions. Titrated fio2 from 8lpm to 6lpm via oxymizer. Pt tolerating well MARNI Rodriguez communicated of o2 change.
--- NOTE | 2019-11-22 05:30 | NUR ---
Cares Chest tube dressing changed and wound care done to sacrum. Cleansed pt, full linen change provided. Patient tolerated well.
[2019-11-22] MEDS: SALINE 0.65 % NASAL SPRAY 45ML BOTTLE EACHNOSTRI SCH ×8 (06:00→21:11)
[2019-11-22] MEDS: ALBUTEROL SULF HFA 90MCG INH 200DOSE IN SCH ×3 (06:22→21:59)
[2019-11-22] MEDS: BUDESONIDE (INHALATION) 180 MCG IH IN SCH ×2 (06:23→21:59)
--- NOTE | 2019-11-22 06:23 | NUR ---
Respiratory note: PT IS AWAKE, AND ALERT. NO RESPIRATORY DISTRESS NOTED. SPO2 91% ON 4L OXYMIZER, HR 90, RR 19, BS CLEAR/DIMINISHED. PT GIVEN 1 PUFF ([id number] GIVEN VIA MDI WITH CHAMBER/2 PUFFS PULMICORT, WITH NO ADVERSE EFFECTS NOTED. NO FURTHER RESPIRATORY INTERVENTIONS INDICATED AT THIS TIME. WILL CONTINUE TO MONITOR PT. CHARTING COMPLETE FROM OUTSIDE OF PT ROOM PER COVID-19 PRECAUTIONS/PROTOCOL.
[2019-11-22] MEDS: InsuLIN REG 1unit/0.01ml Soln (100units/ml) SC SCH ×4 (06:32→21:29)
[2019-11-22] MEDS: LEVOTHYROXINE SODIUM 100 MCG TAB PO SCH (07:04)
[2019-11-22] MEDS: INSULIN LANTUS (GLARGINE) 1 /0.01ml (100units/ml) SC SCH ×2 (07:06→21:37)
[2019-11-22] MEDS: ACCU-CHEK COMFORT CURVE STRIP VI SCH ×4 (07:06→21:35)
[2019-11-22 07:38] LABS: Platelet Count (auto) 60 10^3/uL (140-450); Red Cell Distribution Width 15.1 % (11.8-14.3); White Blood Cell 9.7 10^3/uL (4.4-10.8)
[2019-11-22 07:39] LABS: Hematocrit 39.7 % (36.0-46.0); Mean Corpuscular Hemoglobin 29.6 pg (28.0-32.0); Mean Corpuscular Hgb Conc. 32.8 g/dL (32.0-36.0); Mean Corpuscular Volume 90.4 fL (80.0-100.0); Red Blood Cells 4.39 10^6/uL (4.0-5.20)
[2019-11-22 07:45] LABS: Basophils % (manual) 0 (0.0-2.0); Blast Cells 0; Eosinophils % (manual) 0 (0-7); Metamyelocytes % 0; Myelocytes % 0; Promyelocytes % 0; Reactive Lymphocytes 0
[2019-11-22 07:52] LABS: Potassium 4.3 mmol/L (3.5-5.1)
[2019-11-22 07:59] LABS: BUN/Creatinine Ratio 69.2; Calcium 8.1 mg/dL (8.5-10.1)
--- NOTE | 2019-11-22 08:00 | NUR ---
OPENING NOTE REPORT RECEIVED FROM PROBATION WORKER RN. PT IS LYING IN BED, EYES CLOSED, ON 4L OXYMIZER. NO S/S OF DISTRESS NOTED. PT HAS CHEST TUBE TO THE RIGHT UPPER CHEST. DRESSING IS DRY AND INTACT, NO CREPITUS NOTED AT THE SITE. BED IS LOCKED AT LOWEST POSITION, SIDE RAILS ARE UP. WILL CONTINUE TO MONITOR.
[2019-11-22 08:38] LABS: Band Neutrophils % (manual) 4; Lymphocytes % (manual) 3 (10.0-50.0); Monocytes % (manual) 6 (0-12)
[2019-11-22] MEDS: PANTOPRAZOLE 40 MG TAB PO SCH ×3 (10:00→15:49)
--- NOTE | 2019-11-22 10:00 | NUR ---
MEDICATION REFUSAL PT IS REFUSING ALL MEDICATIONS. PT STATES SHE WOULD LIKE TO SPEAK TO THE DOCTOR BEFORE ANYTHING. PT EDUCATED ON THE IMPORTANCE OF HER MEDICATIONS. PT VERBALIZED UNDERSTANDING BUT CONTINUED TO REFUSE. WILL CONTINUE TO EDUCATE.
[2019-11-22] MEDS: cefTRIAXone 1GM/50ML D5W 50 ML IV SCH (10:02)
[2019-11-22] MEDS: Glucerna Carbsteady SHAKE Vanilla 8oz PO SCH ×3 (10:02→18:41)
[2019-11-22] MEDS: METOPROLOL TARTRATE 50 MG TAB PO SCH ×3 (10:04→21:11)
[2019-11-22] MEDS: POTASSIUM EFFERVESENT TAB 25 MEQ GT SCH ×2 (10:04→15:48)
[2019-11-22] MEDS: FUROSEMIDE 20 MG TAB PO SCH ×2 (10:04→15:48)
[2019-11-22] MEDS: methylPREDNISolone SOD SUCC 40 MG/ML VL IV SCH ×2 (10:05→21:12)
[2019-11-22] MEDS: SODIUM CHLOR 0.9% PF (SALINE LOCK) 10ML VIAL/SYR IV SCH ×2 (10:05→21:11)
[2019-11-22] MEDS: CHOLECALCIFEROL (VITD3) 1,000UNIT=25mCg TAB PO SCH ×2 (10:05→15:49)
--- NOTE | 2019-11-22 14:20 | NUR ---
DR JOY AT BEDSIDE TO ASSESS PATIENT AND DISCUSS PLAN OF CARE. MD DISCUSSED WITH PATIENT IMPORTANCE OF TAKING MEDICATIONS. PATIENT VERBALIZED UNDERSTANDING AND AGREED TO TAKE MEDICATIONS. PER MD OK TO TRANSFER PATIENT TO TELEMETRY COVID UNIT. ALL ORDERS NOTED IN CHART.
[2019-11-22] MEDS ORDERED: FUROSEMIDE 20 MG/2 ML VIAL IV ONE (14:30)
[2019-11-22] MEDS ORDERED: POTASSIUM EFFERVESENT TAB 25 MEQ PO ONE (14:30)
--- NOTE | 2019-11-22 15:50 | NUR ---
Nutrition Followup Notes Wt: 76.6 kg Pt is positive for COVID. Pt is with CCHO 60g diet, appetite is poor aeb ave 23% PO intake over 4 meals per RN doc. Pt TPN has been discontinued. Will continue to monitor PO status, skin status, pertinent labs and weight trends. Will f/u in 3-5 days. Est energy needs 7818-9193 kcal (20-25 kcal/kg BW 74.4kg), Est protein needs 59-74g (0.8-1g/kg BW 74.4kg). Will reassess prn LABS: GLU 158 H, CA 8.1 L ALB 2.3 L GI: Pt had no BM today per RN doc BS: 12 high risk. Refer to wound assessment report for full details. PES: Overweight r/t caloric intake in excess of needs aeb pt BMI is 29.1kg/m2 Comments 1) Refer pt to OPD on DC. 2) Advance PN support to meet > 75% of needs if pt continues to have poor PO. 3) Continue current plan of care
--- NOTE | 2019-11-22 16:55 | NUR ---
TRANSFER PT TRANSFERRED TO TELE COVID UNIT RM 246A VIA BED. PT CONNECTED TO LICENSED NURSING ASSISTANT AND PORTABLE OXYGEN. CONNECTED CHEST TUBE TO SUCTION AND PLACED PT ON BEDSIDE OXYGEN. WILL, PRIMARY RN AT BEDSIDE UPON ARRIVAL. NO AIR LEAKS NOTED TO WATER SEAL. NO S/S OF ACUTE DISTRESS NOTED. CALL VARGAS IN REACH. BED IN LOWEST POSITION, SIDE RAILS UP.
--- NOTE | 2019-11-22 19:30 | NUR ---
Opening Shift Note Assumed care of patient, awake and alert x4. Patient denies pain or shortness of breath at this time. Patient is on 4L/min Oxymizer, SPO2: 96% at this time. No sign/symptoms of distress noted or verbalized at this time. Patient noted to have chest tube catheter to right upper chest, dressing, dry, clean, and intact, no crepitus noted at this time. Instructed on plan of care and encouraged patient to call for assistance as needed, patient verbalized understanding. Bed is locked in lowest position, side rails x 3 are up, call light is within reach, and bed alarm is on.
--- NOTE | 2019-11-23 05:00 | NUR ---
Wound Care Wound care performed to scarum as ordered by MD, patient tolerated well. Full linen change was completed.
[2019-11-23 05:40] VITALS: BP 159/81
[2019-11-23] MEDS: SALINE 0.65 % NASAL SPRAY 45ML BOTTLE EACHNOSTRI SCH ×8 (06:00→22:00)
[2019-11-23] MEDS: INSULIN LANTUS (GLARGINE) 1 /0.01ml (100units/ml) SC SCH ×2 (06:15→22:28)
[2019-11-23] MEDS: LEVOTHYROXINE SODIUM 100 MCG TAB PO SCH (06:15)
[2019-11-23] MEDS: InsuLIN REG 1unit/0.01ml Soln (100units/ml) SC SCH ×4 (06:15→22:00)
[2019-11-23] MEDS: ACCU-CHEK COMFORT CURVE STRIP VI SCH ×4 (06:16→22:23)
--- NOTE | 2019-11-23 06:51 | NUR ---
Chest Tube Output 10ml of serosanguineous chest tube output during this RN's shift.
[2019-11-23] MEDS: ALBUTEROL SULF HFA 90MCG INH 200DOSE IN SCH ×3 (07:17→22:50)
[2019-11-23] MEDS: BUDESONIDE (INHALATION) 180 MCG IH IN SCH ×2 (07:17→22:50)
[2019-11-23 07:28] LABS: Calcium 8.1 mg/dL (8.5-10.1); Potassium 3.8 mmol/L (3.5-5.1)
[2019-11-23 07:31] LABS: BUN/Creatinine Ratio 67.5
[2019-11-23 07:34] LABS: Basophils # (auto) 0 10 ^3/uL (0-0.2); Basophils % (auto) 0.3 % (0.0-2.0); Eosinophils # (auto) 0 10 ^3/uL (0-0.8); Eosinophils % (auto) 0.1 % (0.0-7.0); Hematocrit 40.4 % (36.0-46.0); Hemoglobin 13.5 g/dL (12.2-16.2); Lymphocytes # (auto) 1.2 10 ^3/uL (0.4-5.4); Lymphocytes % (auto) 12.4 % (10.0-50.0); Mean Corpuscular Hemoglobin 29.9 pg (28.0-32.0); Mean Corpuscular Hgb Conc. 33.3 g/dL (32.0-36.0); Mean Corpuscular Volume 89.8 fL (80.0-100.0); Monocytes # (auto) 0.3 10 ^3/uL (0-1.3); Monocytes % (auto) 2.8 % (0.0-12.0); Neutrophils # (auto) 8.3 10 ^3/uL (1.6-8.6); Neutrophils % (auto) 84.4 % (37.0-80.0); Nucleated Red Blood Cells % 0.4 %; Platelet Count (auto) 93 10^3/uL (140-450); Red Blood Cells 4.49 10^6/uL (4.0-5.20); Red Cell Distribution Width 15.6 % (11.8-14.3); White Blood Cell 9.8 10^3/uL (4.4-10.8)
--- NOTE | 2019-11-23 08:16 | NUR ---
OPENING SHIFT NOTE Resumed care of patient. Patient is awake and A&OX4. PT is on 4L O2. No S/S of distress or SOB. Chest tube level is 104 ml. Bed locked, in lowest position, call light within reach, side rails up x2, bed alarm on for safety. Will continue to monitor for changes Q1hr and PRN.
[2019-11-23 08:54] VITALS: BP 160/86
[2019-11-23] MEDS: Glucerna Carbsteady SHAKE Vanilla 8oz PO SCH ×3 (11:03→18:12)
[2019-11-23] MEDS: cefTRIAXone 1GM/50ML D5W 50 ML IV SCH (11:10)
[2019-11-23] MEDS: POTASSIUM EFFERVESENT TAB 25 MEQ GT SCH (11:10)
[2019-11-23] MEDS: CHOLECALCIFEROL (VITD3) 1,000UNIT=25mCg TAB PO SCH (11:10)
[2019-11-23] MEDS: PANTOPRAZOLE 40 MG TAB PO SCH (11:10)
[2019-11-23] MEDS: SODIUM CHLOR 0.9% PF (SALINE LOCK) 10ML VIAL/SYR IV SCH ×2 (11:11→21:43)
[2019-11-23] MEDS: methylPREDNISolone SOD SUCC 40 MG/ML VL IV SCH ×2 (11:11→21:43)
[2019-11-23] MEDS: FUROSEMIDE 20 MG TAB PO SCH (11:12)
[2019-11-23] MEDS: METOPROLOL TARTRATE 50 MG TAB PO SCH ×2 (11:12→21:44)
[2019-11-23 12:47] VITALS: BP 147/80
[2019-11-23 17:14] VITALS: BP 134/89
--- NOTE | 2019-11-23 19:30 | NUR ---
CHEST TUBE OUTPUT IS 6ML AT END OF SHIFT
--- NOTE | 2019-11-23 20:00 | NUR ---
Opening Shift Note Assumed care of patient, awake and alert x4. Patient denies pain or shortness of breath at this time. Patient is on 7L/min Oxymizer, SPO2: 99% at this time. No sign/symptoms of distress noted or verbalized at this time. Patient noted to have chest tube catheter to right upper chest, dressing, dry, clean, and intact, no crepitus noted at this time. Lander boots in place. Flores catheter hanging below patient, free of kinks, draining clear yellow urine via gravity. Instructed on plan of care and encouraged patient to call for assistance as needed, patient verbalized understanding. Bed is locked in lowest position, side rails x 3 are up, call light is within reach, and bed alarm is on.
[2019-11-23] MEDS: APIXABAN 5 MG TAB PO SCH (21:43)
[2019-11-23] MEDS: ACETAMINOPHEN 325 MG TAB PO PRN (21:44)
[2019-11-23 22:00] VITALS: BP 141/87
[2019-11-24] VITALS (7 sets, daily range): BP systolic 123–179; BP diastolic 74–89
--- NOTE | 2019-11-24 04:50 | NUR ---
Wound Care Wound care performed to scarum as ordered by MD, patient tolerated well. Full linen change was completed.
--- NOTE | 2019-11-24 05:00 | NUR ---
PICC Line Dressing Changed PICC line dressing changed with sterile technique. Lumens changed. Patient tolerated well.
--- NOTE | 2019-11-24 05:20 | NUR ---
Hospitalist Paged RE: Elevated Blood Pressure Hospitalist paged regarding elevated blood pressure. Awaiting call back.
[2019-11-24] MEDS: SALINE 0.65 % NASAL SPRAY 45ML BOTTLE EACHNOSTRI SCH ×8 (06:00→22:22)
--- NOTE | 2019-11-24 06:30 | NUR ---
Hospitalist Re-Paged for Elevated Blood Pressure Hospitalist re-paged for elevated blood pressure. Awaiting call back.
[2019-11-24] MEDS: ACCU-CHEK COMFORT CURVE STRIP VI SCH ×4 (06:39→22:17)
[2019-11-24] MEDS: INSULIN LANTUS (GLARGINE) 1 /0.01ml (100units/ml) SC SCH ×2 (06:40→22:24)
[2019-11-24] MEDS: InsuLIN REG 1unit/0.01ml Soln (100units/ml) SC SCH ×4 (06:41→22:00)
[2019-11-24] MEDS: LEVOTHYROXINE SODIUM 100 MCG TAB PO SCH (06:50)
--- NOTE | 2019-11-24 06:50 | NUR ---
Chest Tube Output 14ml of serosanguineous chest tube output during this RN's shift.
[2019-11-24 06:53] LABS: Hematocrit 40.7 % (36.0-46.0); Hemoglobin 13.6 g/dL (12.2-16.2); Mean Corpuscular Hgb Conc. 33.4 g/dL (32.0-36.0); Mean Corpuscular Volume 89.9 fL (80.0-100.0); Platelet Count (auto) 75 10^3/uL (140-450); Red Blood Cells 4.53 10^6/uL (4.0-5.20); Red Cell Distribution Width 15.4 % (11.8-14.3); White Blood Cell 9.2 10^3/uL (4.4-10.8)
[2019-11-24 06:54] LABS: Basophils % (manual) 0 (0.0-2.0); Blast Cells 0; Eosinophils % (manual) 0 (0-7); Metamyelocytes % 0; Myelocytes % 0; Promyelocytes % 0; Reactive Lymphocytes 0
[2019-11-24] MEDS: BUDESONIDE (INHALATION) 180 MCG IH IN SCH ×2 (07:06→21:55)
[2019-11-24] MEDS: ALBUTEROL SULF HFA 90MCG INH 200DOSE IN SCH ×3 (07:06→21:55)
--- NOTE | 2019-11-24 08:37 | NUR ---
OPENING SHIFT NOTE Resumed care of patient. Patient is awake and A&OX4. PT is on 4.5L O2. No S/S of distress or SOB. Chest tube level is 122 ml. Bed locked, in lowest position, call light within reach, side rails up x2, bed alarm on for safety. Will continue to monitor for changes Q1hr and PRN.
[2019-11-24 09:24] LABS: Band Neutrophils % (manual) 7
[2019-11-24 09:25] LABS: Lymphocytes % (manual) 8 (10.0-50.0); Monocytes % (manual) 8 (0-12)
[2019-11-24] MEDS: Glucerna Carbsteady SHAKE Vanilla 8oz PO SCH ×3 (10:36→17:45)
[2019-11-24] MEDS: cefTRIAXone 1GM/50ML D5W 50 ML IV SCH (10:37)
[2019-11-24] MEDS: PANTOPRAZOLE 40 MG TAB PO SCH (10:48)
[2019-11-24] MEDS: APIXABAN 5 MG TAB PO SCH ×2 (10:48→22:09)
[2019-11-24] MEDS: methylPREDNISolone SOD SUCC 40 MG/ML VL IV SCH ×2 (10:48→22:10)
[2019-11-24] MEDS: CHOLECALCIFEROL (VITD3) 1,000UNIT=25mCg TAB PO SCH (10:48)
[2019-11-24] MEDS: POTASSIUM EFFERVESENT TAB 25 MEQ GT SCH (10:48)
[2019-11-24] MEDS: METOPROLOL TARTRATE 50 MG TAB PO SCH ×3 (10:49→23:18)
[2019-11-24] MEDS: FUROSEMIDE 20 MG TAB PO SCH (10:50)
[2019-11-24] MEDS: SODIUM CHLOR 0.9% PF (SALINE LOCK) 10ML VIAL/SYR IV SCH ×2 (10:50→22:23)
--- NOTE | 2019-11-24 19:06 | NUR ---
CHEST TUBE OUTPUT IS 12ML AT END OF SHIFT
--- NOTE | 2019-11-24 20:00 | NUR ---
Opening Shift Note Assumed care of patient, awake and alert x4. Patient denies pain or shortness of breath at this time. Patient is on 4L/min Oxymizer, SPO2: 93% at this time. No sign/symptoms of distress noted or verbalized at this time. Patient noted to have chest tube catheter to right upper chest, dressing, dry, clean, and intact, no crepitus noted at this time. Cache boots in place. Flores catheter hanging below patient, free of kinks, draining clear yellow urine via gravity. Instructed on plan of care and encouraged patient to call for assistance as needed, patient verbalized understanding. Bed is locked in lowest position, side rails x 3 are up, call light is within reach, and bed alarm is on.
[2019-11-25 05:00] VITALS: BP 129/82
--- NOTE | 2019-11-25 05:30 | NUR ---
Wound Care Wound care performed to scarum as ordered by MD, patient tolerated well. Partial linen change was completed.
[2019-11-25] MEDS: SALINE 0.65 % NASAL SPRAY 45ML BOTTLE EACHNOSTRI SCH ×6 (05:55→22:00)
[2019-11-25] MEDS: ACCU-CHEK COMFORT CURVE STRIP VI SCH ×4 (05:56→22:25)
[2019-11-25] MEDS: InsuLIN REG 1unit/0.01ml Soln (100units/ml) SC SCH ×4 (05:56→22:28)
[2019-11-25] MEDS: LEVOTHYROXINE SODIUM 100 MCG TAB PO SCH (05:56)
[2019-11-25] MEDS: INSULIN LANTUS (GLARGINE) 1 /0.01ml (100units/ml) SC SCH (05:56)
--- NOTE | 2019-11-25 06:58 | NUR ---
Chest Tube Output 8ml of serosanguineous chest tube output during this RN's shift.
[2019-11-25] MEDS: ALBUTEROL SULF HFA 90MCG INH 200DOSE IN SCH ×3 (07:25→22:19)
--- NOTE | 2019-11-25 07:45 | NUR ---
OPENING SHIFT NOTE Resumed care of patient. Patient is awake and A&OX4. PT is on 5L O2. No S/S of distress or SOB. Chest tube level is 142 ml. Bed locked, in lowest position, call light within reach, side rails up x2, bed alarm on for safety. Will continue to monitor for changes Q1hr and PRN.
[2019-11-25] MEDS: Glucerna Carbsteady SHAKE Vanilla 8oz PO SCH ×3 (08:00→18:04)
[2019-11-25 09:00] VITALS: BP 159/85
[2019-11-25] MEDS: POTASSIUM EFFERVESENT TAB 25 MEQ GT SCH (11:31)
[2019-11-25] MEDS: cefTRIAXone 1GM/50ML D5W 50 ML IV SCH (11:33)
[2019-11-25] MEDS: methylPREDNISolone SOD SUCC 40 MG/ML VL IV SCH (11:33)
[2019-11-25] MEDS: SODIUM CHLOR 0.9% PF (SALINE LOCK) 10ML VIAL/SYR IV SCH ×2 (11:34→22:23)
[2019-11-25] MEDS: APIXABAN 5 MG TAB PO SCH ×2 (11:36→22:23)
[2019-11-25] MEDS: PANTOPRAZOLE 40 MG TAB PO SCH (11:36)
[2019-11-25] MEDS: METOPROLOL TARTRATE 50 MG TAB PO SCH ×2 (11:37→22:25)
[2019-11-25] MEDS: CHOLECALCIFEROL (VITD3) 1,000UNIT=25mCg TAB PO SCH (11:38)
[2019-11-25] MEDS: FUROSEMIDE 20 MG TAB PO SCH (11:38)
[2019-11-25] MEDS: ALPRAZolam 0.5 MG TAB PO PRN (11:39)
--- NOTE | 2019-11-25 12:53 | NUR ---
Nutrition Followup Notes Wt: 76.6 kg Pt is positive for COVID. Pt is with CCHO 60g diet, appetite is poor aeb PO intake < 50% x 2 days per RN doc. Pt TPN has been discontinued. Will continue to monitor PO status, skin status, pertinent labs and weight trends. Will f/u in 3-5 days. Est energy needs 8588-9126 kcal (20-25 kcal/kg BW 74.4kg), Est protein needs 59-74g (0.8-1g/kg BW 74.4kg). Will reassess prn LABS: No new labs today POC GLU 164 H GI: Pt had 1 BM on 11/17 per RN doc BS: 12 high risk. Refer to wound assessment report for full details. PES: Overweight r/t caloric intake in excess of needs aeb pt BMI is 29.1kg/m2 Comments 1) Refer pt to OPD on DC. 2) Resume PN support to meet > 75% of needs if pt continues to have poor PO. 3) Continue current plan of care
[2019-11-25 13:01] VITALS: BP 155/83
[2019-11-25] MEDS: BUDESONIDE (INHALATION) 180 MCG IH IN SCH ×2 (14:39→22:19)
[2019-11-25 17:13] VITALS: BP 140/90
--- NOTE | 2019-11-25 19:01 | NUR ---
CHEST TUBE OUTPUT IS 8ML AT END OF SHIFT
[2019-11-25 22:27] VITALS: BP 136/91
[2019-11-26 05:00] VITALS: BP 138/80
[2019-11-26] MEDS: SALINE 0.65 % NASAL SPRAY 45ML BOTTLE EACHNOSTRI SCH ×4 (06:00→22:32)
[2019-11-26] MEDS: LEVOTHYROXINE SODIUM 100 MCG TAB PO SCH (06:37)
[2019-11-26] MEDS: InsuLIN REG 1unit/0.01ml Soln (100units/ml) SC SCH ×4 (06:38→22:30)
[2019-11-26] MEDS: ACCU-CHEK COMFORT CURVE STRIP VI SCH ×4 (06:38→22:19)
[2019-11-26] MEDS: ALBUTEROL SULF HFA 90MCG INH 200DOSE IN SCH ×3 (07:23→22:53)
[2019-11-26] MEDS: BUDESONIDE (INHALATION) 180 MCG IH IN SCH ×2 (07:23→22:53)
[2019-11-26 07:35] LABS: Hematocrit 42.2 % (36.0-46.0); Mean Corpuscular Hgb Conc. 33.3 g/dL (32.0-36.0); Mean Corpuscular Volume 90.3 fL (80.0-100.0); Platelet Count (auto) 120 10^3/uL (140-450); Red Blood Cells 4.67 10^6/uL (4.0-5.20); Red Cell Distribution Width 15.7 % (11.8-14.3); White Blood Cell 10.5 10^3/uL (4.4-10.8)
[2019-11-26 07:38] LABS: Calcium 8.3 mg/dL (8.5-10.1); Potassium 3.4 mmol/L (3.5-5.1)
[2019-11-26 07:47] LABS: Basophils % (manual) 0 (0.0-2.0); Blast Cells 0; Eosinophils % (manual) 0 (0-7); Metamyelocytes % 0; Myelocytes % 0; Promyelocytes % 0; Reactive Lymphocytes 0
[2019-11-26 08:19] LABS: Band Neutrophils % (manual) 4; Lymphocytes % (manual) 16 (10.0-50.0); Monocytes % (manual) 4 (0-12)
[2019-11-26] MEDS: cefTRIAXone 1GM/50ML D5W 50 ML IV SCH (09:10)
[2019-11-26] MEDS: SODIUM CHLOR 0.9% PF (SALINE LOCK) 10ML VIAL/SYR IV SCH ×2 (09:10→22:18)
[2019-11-26] MEDS: CHOLECALCIFEROL (VITD3) 1,000UNIT=25mCg TAB PO SCH (09:11)
[2019-11-26] MEDS: predniSONE 20 MG TAB PO SCH (09:12)
[2019-11-26] MEDS: PANTOPRAZOLE 40 MG TAB PO SCH (09:12)
[2019-11-26] MEDS: FUROSEMIDE 20 MG TAB PO SCH (09:12)
[2019-11-26] MEDS: POTASSIUM EFFERVESENT TAB 25 MEQ GT SCH (09:13)
[2019-11-26] MEDS: Glucerna Carbsteady SHAKE Vanilla 8oz PO SCH ×3 (09:13→17:49)
[2019-11-26] MEDS: METOPROLOL TARTRATE 50 MG TAB PO SCH ×2 (09:14→22:19)
[2019-11-26 09:20] VITALS: BP 127/79
[2019-11-26] MEDS: APIXABAN 5 MG TAB PO SCH ×2 (12:18→22:18)
[2019-11-26 13:14] VITALS: BP 135/84
[2019-11-26] MEDS ORDERED: POTASSIUM EFFERVESENT TAB 25 MEQ PO ONE (13:30)
[2019-11-26 17:00] VITALS: BP 137/87
[2019-11-26 22:00] VITALS: BP 139/89
[2019-11-27 05:00] VITALS: BP 140/87
[2019-11-27] MEDS: ACCU-CHEK COMFORT CURVE STRIP VI SCH ×4 (06:33→22:00)
[2019-11-27] MEDS: SALINE 0.65 % NASAL SPRAY 45ML BOTTLE EACHNOSTRI SCH ×4 (06:33→22:00)
[2019-11-27] MEDS: InsuLIN REG 1unit/0.01ml Soln (100units/ml) SC SCH ×4 (06:33→22:00)
[2019-11-27] MEDS: LEVOTHYROXINE SODIUM 100 MCG TAB PO SCH (06:33)
[2019-11-27] MEDS: ALBUTEROL SULF HFA 90MCG INH 200DOSE IN SCH ×3 (07:08→23:11)
[2019-11-27] MEDS: BUDESONIDE (INHALATION) 180 MCG IH IN SCH ×2 (07:08→23:11)
--- NOTE | 2019-11-27 07:08 | NUR ---
Respiratory note: PT SEEN FOR MDI'S, PATIENT WAS ASLEEP AND DID NOT WANT TO BE BOTHERED. SHE STATED SHE DID NOT WANT TO DO MDI'S AT THIS TIME. NO RESP DISTRESS NOTED. HR 90, RR 18, SPO2 99% ON 3L OXYMIZER.
[2019-11-27 09:00] VITALS: BP 130/84
[2019-11-27] MEDS: SODIUM CHLOR 0.9% PF (SALINE LOCK) 10ML VIAL/SYR IV SCH ×2 (09:15→22:00)
[2019-11-27] MEDS: Glucerna Carbsteady SHAKE Vanilla 8oz PO SCH ×3 (09:15→18:28)
[2019-11-27] MEDS: POTASSIUM EFFERVESENT TAB 25 MEQ GT SCH (09:15)
[2019-11-27] MEDS: cefTRIAXone 1GM/50ML D5W 50 ML IV SCH (09:15)
[2019-11-27] MEDS: predniSONE 20 MG TAB PO SCH (09:15)
[2019-11-27] MEDS: APIXABAN 5 MG TAB PO SCH ×2 (09:16→22:00)
[2019-11-27] MEDS: FUROSEMIDE 20 MG TAB PO SCH (09:16)
[2019-11-27] MEDS: METOPROLOL TARTRATE 50 MG TAB PO SCH ×2 (09:18→22:00)
[2019-11-27] MEDS: PANTOPRAZOLE 40 MG TAB PO SCH (09:18)
[2019-11-27] MEDS: CHOLECALCIFEROL (VITD3) 1,000UNIT=25mCg TAB PO SCH (09:18)
--- NOTE | 2019-11-27 12:50 | NUR ---
Dr Mitchell bedside with patient discussing plan of care
[2019-11-27 13:00] VITALS: BP 131/74
[2019-11-27] MEDS ORDERED: SERTRALINE HCL 50 MG TAB PO ONE (13:30)
--- NOTE | 2019-11-27 14:00 | NUR ---
Refusing Medication Patient refusing medication. Purpose of medication along with risks/benefits was explained. Patient stated "please lay me back down and turn the light off, I don't want to take any medication".
--- NOTE | 2019-11-27 14:42 | NUR ---
Respiratory note: SEEN PATIENT TO ADMINISTER MDI, PT WAS AWAKE AND REFUSED TO DO IT. SHE SAID, PLEASE DON'T MAKE ME DO THAT. NO RESP DISTRESS NOTED. HR 112, RR 18, SPO2 96% ON 3L OXYMIZER.
[2019-11-27 17:00] VITALS: BP 146/86
[2019-11-27 18:33] VITALS: BP 146/86
--- NOTE | 2019-11-27 18:45 | NUR ---
Patient was sat up to eat dinner. I assisted patient with eating, she ate 3 bites of food and then requested to lay back down. I encouraged patient to eat additional bites or sips of her protein drink. She refused and said "lay me back down please and turn the light off". Will continue to encourage additional food.
--- NOTE | 2019-11-27 18:49 | NUR ---
CHEST TUBE OUTPUT 7ml of serosanguineous chest tube output during shift.
--- NOTE | 2019-11-27 22:00 | NUR ---
PT REFUSING MEDICATION PT INSTRUCTED ON NECESSITY OF MEDICATION AND PATIENT VERBALIZED UNDERSTANDING. PATIENT STILL REFUSING MEDICATION. PATIENT AGREED TO TAKE ONE MEDICATION AT THIS TIME. WILL CONTINUE TO MONITOR.
[2019-11-27 22:58] VITALS: BP 127/75
--- NOTE | 2019-11-28 05:00 | NUR ---
PT REFUSING TO TURN INSTRUCTED PT ON NECESSITY OF TURNING TO REDUCE SKIN BREAKDOWN. PT STATES SEVERAL TIMES "NOT RIGHT NOW". PT AGREED TO TURN ONCE DURING SHIFT. WILL ENDORSE TO DAYSHIFT.
--- NOTE | 2019-11-28 05:22 | NUR ---
CHEST TUBE OUTPUT CHEST TUBE OUTPUT APPROXIMATELY 4-5 ML OF SEROSANGUINEOUS FLUID.
[2019-11-28 05:33] VITALS: BP 145/77
[2019-11-28] MEDS: LEVOTHYROXINE SODIUM 100 MCG TAB PO SCH (06:08)
[2019-11-28] MEDS: ACCU-CHEK COMFORT CURVE STRIP VI SCH ×4 (06:08→22:09)
[2019-11-28] MEDS: InsuLIN REG 1unit/0.01ml Soln (100units/ml) SC SCH ×4 (06:10→23:37)
[2019-11-28] MEDS: SALINE 0.65 % NASAL SPRAY 45ML BOTTLE EACHNOSTRI SCH ×4 (06:23→22:08)
[2019-11-28] MEDS: BUDESONIDE (INHALATION) 180 MCG IH IN SCH ×2 (07:08→22:05)
[2019-11-28] MEDS: ALBUTEROL SULF HFA 90MCG INH 200DOSE IN SCH ×3 (07:08→22:05)
[2019-11-28 07:20] LABS: Hematocrit 39.8 % (36.0-46.0); Hemoglobin 13.3 g/dL (12.2-16.2); Mean Corpuscular Hemoglobin 30.9 pg (28.0-32.0); Mean Corpuscular Hgb Conc. 33.5 g/dL (32.0-36.0); Mean Corpuscular Volume 92.3 fL (80.0-100.0); Platelet Count (auto) 102 10^3/uL (140-450); Red Blood Cells 4.31 10^6/uL (4.0-5.20); Red Cell Distribution Width 16.9 % (11.8-14.3); White Blood Cell 9.6 10^3/uL (4.4-10.8)
[2019-11-28 07:23] LABS: Basophils % (manual) 0 (0.0-2.0); Blast Cells 0; Eosinophils % (manual) 0 (0-7); Metamyelocytes % 0; Myelocytes % 0; Promyelocytes % 0; Reactive Lymphocytes 0
[2019-11-28 07:33] LABS: Calcium 8.2 mg/dL (8.5-10.1); Potassium 3.5 mmol/L (3.5-5.1)
[2019-11-28 07:36] LABS: BUN/Creatinine Ratio 80.6
[2019-11-28] MEDS: Glucerna Carbsteady SHAKE Vanilla 8oz PO SCH ×3 (08:00→18:00)
--- NOTE | 2019-11-28 08:00 | NUR ---
ASSESSMENT NOTE PT IS ALERT ORIENTED, SELF, SITUATION, PERSON, FORGETFUL ON TIMES, VERY SELDOM TO TALK, STAY MORE TO HER SELF, PT HAS VERY LARGE DARK BRUISES AT LEFT UPPER ARM AND LEFT FOREARM FROM A PICC LINE, ALSO BRUISES NOTED ACROSS THE LOWER ABDOMEN AREA FROM LOVENOX SHOTS SQ, PT BOTH FEET AR ON BONNY BOOTS, NO SKIN BREAKDOWN NOTED, OPTIFOAM IS INTACT AT THE SACRUM AREA, A SMALL AMOUNT OF BLOOD NOTED, PAIN 0/10, CALL LIGHT WITHIN REACH
[2019-11-28 08:01] LABS: Band Neutrophils % (manual) 6; Lymphocytes % (manual) 14 (10.0-50.0); Monocytes % (manual) 6 (0-12)
--- NOTE | 2019-11-28 08:02 | NUR ---
CONTINUE ASSESSMENT NOTE PT HAS RT UPPER CHSET CHEST TUBE, NO DRAINAGE NOTED, DRESSING INTACT
--- NOTE | 2019-11-28 08:15 | NUR ---
PT ON OXYGEN 3 L OXYMIZER SAT AT 95%
[2019-11-28 09:00] VITALS: BP 115/62
--- NOTE | 2019-11-28 09:00 | NUR ---
BREAKFAST PT ATE 50 % , ATE SLOWLY, TOLERATED WELL
[2019-11-28] MEDS: POTASSIUM EFFERVESENT TAB 25 MEQ GT SCH (10:00)
[2019-11-28] MEDS: FUROSEMIDE 20 MG TAB PO SCH (10:00)
[2019-11-28] MEDS ORDERED: predniSONE 20 MG TAB PO SCH (10:00)
[2019-11-28] MEDS: APIXABAN 5 MG TAB PO SCH ×2 (10:00→22:09)
[2019-11-28] MEDS: CHOLECALCIFEROL (VITD3) 1,000UNIT=25mCg TAB PO SCH (10:00)
--- NOTE | 2019-11-28 10:00 | NUR ---
AM MEDICATIONS PT DID NOT AGREE TO TAKE ALL HER MEDICATIONS, EXPLAIN IN DETAILS WHAT THE EFFECT OF EACH MEDICATIONS AND HOW WILL MAKE HER FEEL BETTER AND WELL, PT AGREE FOR SOME MEDICATIONS, TOLERATED WELL
[2019-11-28] MEDS: cefTRIAXone 1GM/50ML D5W 50 ML IV SCH (10:04)
[2019-11-28] MEDS: PANTOPRAZOLE 40 MG TAB PO SCH (10:05)
[2019-11-28] MEDS: METOPROLOL TARTRATE 50 MG TAB PO SCH ×2 (10:05→22:08)
[2019-11-28] MEDS: SERTRALINE HCL 50 MG TAB PO SCH (10:05)
[2019-11-28] MEDS: SODIUM CHLOR 0.9% PF (SALINE LOCK) 10ML VIAL/SYR IV SCH ×2 (10:06→22:08)
--- NOTE | 2019-11-28 10:45 | NUR ---
WOUND CARE NOTE: IN TO SEE PATIENT AT THIS TIME FOR WOUND RE-EVALUATION. PATIENT CONTINUES TO BE IN COVID UNIT. SHE IS RESTING ON SPECIALTY AIR MATTRESS. CURRENT DAWIT SCORE IS 16. PATIENT IS ABLE TO ASSIST WITH HER TURNING/REPOSITIONING. PATIENT HAS BEEN REFUSING REPOSITIONING MULTIPLE TIMES SINCE LAST EXAM. CURRENTLY, SHE IS ALLOWING FOR REPOSITIONING TODAY. PATIENT EDUCATED ON NEED TO REDISTRIBUTE PRESSURE, PATIENT VERBALIZING UNDERSTANDING. LEFT AND RIGHT HEELS HAVE PINK BLANCHABLE SKIN. STAGE 1 PRESSURE INJURIES APPEAR TO HAVE RESOLVED. SHE CONTINUES TO WEAR BONNY FOAM BOOTS TO OFFLOAD PRESSURE. PATIENT TURNED TO RIGHT SIDE. PATIENT'S SACRAL WOUND HAS WORSENED, NOW APPEARING A 6 X 9 CM DTI. SKIN IS DARK PURPLE, WITH OPEN STAGE 2 PARTIAL THICKNESS OPEN AREAS NOTED IN VARIOUS AREAS WITHIN DTI. WOUND IS DRAINING LIGHT AMOUNT OF SEROUS DRAINAGE. PHOTOGRAPHED WOUND FOR REFERENCE. CLEANSED AND DRESSED WOUND PER MD ORDER. PATIENT WOULD BENEFIT FROM SIDE TO SIDE POSITIONING, AVOIDING SUPINE. RECOMMEND: SIDE TO SIDE POSITIONING, AVOIDING SUPINE; CONTINUATION WITH ALL OTHER WOUND CARE ORDERS PREVIOUSLY PRESCRIBED BY MD. WOUND CARE TEAM WILL CONTINUE TO MONITOR. Addendum: 11/28/19 at 1521 by Kanika Hodges RN Amended: Links added.
--- NOTE | 2019-11-28 11:00 | NUR ---
WOUND NURSE AT BED SIDE WITH FULL SKIN ASSESSMENT, PT HAS A LARGE PRESSURE ULCER SATURATED WITH BLOOD, ERNIE GRIDER TOOK PICTURES, CLEANSE WITH NS, PAT IT TO DRY, APPLIED THERA HONEY AND COVER WITH OPTIFOAM, PT TOLERATED WELL, PLAN TO REPOSITION PT FROM SIDE TO SIDE AT ALL TIMES, NO BACK POSITION
--- NOTE | 2019-11-28 11:15 | NUR ---
BM PT HAS MODERATE SIZE SOFT BM, KEPT CLEAN AND DRY, REPOSITION WITH PILLOWS AT HER LEFT SIDE
--- NOTE | 2019-11-28 11:45 | NUR ---
PHYSICAL THERAPY AT BED SIDE, ASSISTED PT TO SIT UP AT THE SIDE OF THE BED, TOLERATED WELL, THEN AFTER 10 MINUTES PT STATED PUT ME BACK TO BED>
--- NOTE | 2019-11-28 12:15 | NUR ---
DR LEACH AT BED SIDE, MADE AWARE THAT PT IS VERY RESISTANT TO CARE, AND SHE HAS LARGE SACRAL PRESSURE SORE, PARTIALLY HAS BLOOD AND BLACK COLOR SORE
--- NOTE | 2019-11-28 12:30 | NUR ---
CALLED PGYSICAL THERAPY PER DR LEACH REQUEST, PT NEED TO GET OUT OF BED TO SIT ON CHAIR AT BED SIDE, SPOKE WITH SHANA, WILL BE HERE AFTER LUNCH
[2019-11-28 13:00] VITALS: BP 134/78
--- NOTE | 2019-11-28 13:05 | NUR ---
PATIENT'S DAUGHTER CALLED, UPDATE GIVEN TO HER
--- NOTE | 2019-11-28 13:30 | NUR ---
PHYSICAL THERAPY AT BED SIDE INFORM PT THAT HER WILL GOING TO ASSIST HER TO GET OUT OF BED TO SIT ON CHAIR AT BED SIDE, PT VERBALIS UNDERSTANDING, PHYSICAL THERAPY SHANA SAT PT UP, THEN ATTEMPT TO HAVE PT TO STAND UP TO IN ORDER TO SWING HER TO CHAIR, PT RESIST, PUSHED BACK, STATED PUT ME BACK, I WANT TO LAY DOWN>, PT CONTINUE TO PULL AWAY AND RESISTING, ASSISTED PT BACK TO BED PER HER REQUEST, REPOSITION WITH PILLOWS UNDER HER RT SIDE UPPER AND LOWER AND KEPT HER COMFORTABLE
--- NOTE | 2019-11-28 14:01 | NUR ---
DR LEACH CALLED BACK AGAIN TO CONFIRM TO PUT CHEST TUBE OFF SUCTION
--- NOTE | 2019-11-28 15:15 | NUR ---
Nutrition Followup Notes Wt: Pt weight recorded @ 51.3 kg, but most likely is an error. When compared to wt Hx, pt wt should probably have been recorded as 71.3 kg Pt is positive for COVID. Pt is with CCHO 60g diet, appetite is sporatic, continues to be poor aeb PO intake < 50% x 2 days per RN doc. Pt TPN has been discontinued. Will continue to monitor PO status, skin status, pertinent labs and weight trends. Will f/u in 3-5 days. Est energy needs 8936-6651 kcal (20-25 kcal/kg BW 74.4kg), Est protein needs 59-74g (0.8-1g/kg BW 74.4kg). Will reassess prn LABS: GLU 196 H, Ca 8.2 L, Alb 2.3 L GI: Pt had last BM on 11/17 per RN doc BS: 18 mod risk. Refer to wound assessment report for full details. PES: Overweight r/t caloric intake in excess of needs aeb pt BMI is 29.1kg/m2 Comments 1) Refer pt to [facility]PD on DC. 2) Resume PN support to meet > 75% of needs if pt continues to have poor PO. 3) Continue current plan of care
--- NOTE | 2019-11-28 16:00 | NUR ---
CONTINUE REPOSITIONING PT FROM SIDE TO SIDE AT ALL TIMES, EVERY 2 HOURS
[2019-11-28 17:00] VITALS: BP 139/75
--- NOTE | 2019-11-28 18:30 | NUR ---
PT CONTINUE STABLE, CONTINUE MONITORING, SITTING UP EATING DINNER
--- NOTE | 2019-11-28 20:00 | NUR ---
Opening Shift Note Assumed care of patient, awake and alert x4. Patient denies pain or shortness of breath at this time. Patient is on 3.5L/min Oxymizer, SPO2: 95% at this time. No sign/symptoms of distress noted or verbalized at this time. Patient noted to have chest tube catheter to right upper chest, dressing, dry, clean, and intact, no crepitus noted at this time, no air leak noted in chest tube. [place] boots in place. Flores catheter hanging below patient, free of kinks, draining clear yellow urine via gravity. Instructed on plan of care and encouraged patient to call for assistance as needed, patient verbalized understanding. Bed is locked in lowest position, side rails x 3 are up, call light is within reach, and bed alarm is on.
[2019-11-28 22:00] VITALS: BP 133/78
--- NOTE | 2019-11-29 | NUR ---
Wound Care Patient had a small formed bowel movement. Patient cleaned with clean soap and water. Sacral wound is open with greatest bed of the wound dark purple draining serous fluid. Wound care performed to sacrum as ordered by MD, patient tolerated well. Patient repositioned at this time.
[2019-11-29 05:00] VITALS: BP 132/72
[2019-11-29] MEDS: BUDESONIDE (INHALATION) 180 MCG IH IN SCH ×2 (06:49→22:34)
[2019-11-29] MEDS: ALBUTEROL SULF HFA 90MCG INH 200DOSE IN SCH ×3 (06:49→22:33)
[2019-11-29] MEDS: LEVOTHYROXINE SODIUM 100 MCG TAB PO SCH (06:58)
[2019-11-29] MEDS: ACCU-CHEK COMFORT CURVE STRIP VI SCH ×4 (06:58→22:54)
[2019-11-29] MEDS: SALINE 0.65 % NASAL SPRAY 45ML BOTTLE EACHNOSTRI SCH ×4 (06:58→22:54)
[2019-11-29] MEDS: InsuLIN REG 1unit/0.01ml Soln (100units/ml) SC SCH ×4 (06:59→22:56)
--- NOTE | 2019-11-29 07:00 | NUR ---
Chest Tube Output No chest tube output throughout this RN's shift.
--- NOTE | 2019-11-29 07:30 | NUR ---
Closing Shift Note Patient is laying in bed within even and unlabored respirations. Patient was titrated down to nasal cannula 4L/min this morning. Patient is currently on nasal cannula 4L/min, SPO2: 95% at this time. No sign/symptoms of distress noted or verbalized at this time. Endorsed patient care to Jw GRIDER.
[2019-11-29] MEDS: Glucerna Carbsteady SHAKE Vanilla 8oz PO SCH ×3 (08:00→18:26)
--- NOTE | 2019-11-29 08:08 | NUR ---
CALLED RADIOLOGY TO CONFIRM PATIENT IS GOING TO HAVE XRAY DONE TODAY. PER CLINICAL PARTNER JENNIFER THEY WILL COME BY AT 0900AM
[2019-11-29 09:00] VITALS: BP 139/78
[2019-11-29] MEDS: cefTRIAXone 1GM/50ML D5W 50 ML IV SCH (09:18)
[2019-11-29] MEDS: POTASSIUM EFFERVESENT TAB 25 MEQ GT SCH (09:18)
[2019-11-29] MEDS: APIXABAN 5 MG TAB PO SCH ×2 (09:18→23:43)
[2019-11-29] MEDS: SODIUM CHLOR 0.9% PF (SALINE LOCK) 10ML VIAL/SYR IV SCH ×2 (09:18→22:54)
[2019-11-29] MEDS: predniSONE 20 MG TAB PO SCH (09:18)
[2019-11-29] MEDS: FUROSEMIDE 20 MG TAB PO SCH (09:19)
[2019-11-29] MEDS: METOPROLOL TARTRATE 50 MG TAB PO SCH ×2 (09:19→22:00)
[2019-11-29] MEDS: CHOLECALCIFEROL (VITD3) 1,000UNIT=25mCg TAB PO SCH (09:20)
[2019-11-29] MEDS: SERTRALINE HCL 50 MG TAB PO SCH (09:20)
[2019-11-29] MEDS: PANTOPRAZOLE 40 MG TAB PO SCH (09:20)
--- NOTE | 2019-11-29 09:48 | NUR ---
PATIENT CURRENTLY SITTING UP AND EATING BREAKFAST. PATIENT SET-UP AND EVERYTHING OPENED FOR PATIENT. PATIENT ON NC 3L EATING COMFORTABLY. WILL CONTINUE TO MONITOR.
--- NOTE | 2019-11-29 11:44 | NUR ---
Jackie BAER AT BEDSIDE. INFORMED OF PATIENT STATUS. INSTRUCTED TO PLACE CHEST TUBE BACK TO SUCTION AT -20 PRESSURE. DRESSING TO SITE CLEAN DRY AND INTACT AND NO SIGNS OF CREPITUS NOTED AT THIS TIME.
[2019-11-29 13:00] VITALS: BP 111/68
--- NOTE | 2019-11-29 13:08 | NUR ---
PATIENT TURNED AND SAT-UP TO EAT LUNCH. PATIENT TOLERATED WELL. PATIENT SITTING UP AND EATING. NO S/S OF DISTRESS NOTED.
[2019-11-29 17:00] VITALS: BP 124/72
--- NOTE | 2019-11-29 20:00 | NUR ---
Opening Shift Note Assumed care of patient, awake and alert x4. Patient denies pain or shortness of breath at this time. Patient is on 4L/min nasal cannula, SPO2: 95% at this time. No sign/symptoms of distress noted or verbalized at this time. Patient noted to have chest tube catheter to right upper chest, dressing, dry, clean, and intact, no crepitus noted at this time, no air leak noted in chest tube. [place] boots in place. Flores catheter hanging below patient, free of kinks, draining clear yellow urine via gravity. Instructed on plan of care and encouraged patient to call for assistance as needed, patient verbalized understanding. Bed is locked in lowest position, side rails x 3 are up, call light is within reach, and bed alarm is on.
[2019-11-29 22:00] VITALS: BP 93/60
--- NOTE | 2019-11-29 23:44 | NUR ---
Refusing Medication Patient refused 22:00 scheduled Lopressor. Educated patient on the purpose of Lopressor, side effects, and benefits of taking Lopressor. Patient educated on the risks of stopping Lopressor abruptly, patient verbalized understanding and continues to refuse medication. Educated patient several times and encouraged patient several times to take Lopressor, patient refused medication and stated "I am overmedicated."
[2019-11-30 05:00] VITALS: BP 134/76
--- NOTE | 2019-11-30 05:00 | NUR ---
Wound Care Sacral wound noted to be open with greatest bed of the wound dark purple draining serous fluid. Wound care performed to sacrum as ordered by MD, patient tolerated well.
--- NOTE | 2019-11-30 05:30 | NUR ---
PICC Line Dressing Changed PICC line dressing changed with sterile technique. Lumens changed. Patient tolerated well.
[2019-11-30] MEDS: LEVOTHYROXINE SODIUM 100 MCG TAB PO SCH (06:45)
[2019-11-30] MEDS: SALINE 0.65 % NASAL SPRAY 45ML BOTTLE EACHNOSTRI SCH ×4 (06:45→22:26)
[2019-11-30] MEDS: InsuLIN REG 1unit/0.01ml Soln (100units/ml) SC SCH ×4 (06:45→22:25)
[2019-11-30] MEDS: ACCU-CHEK COMFORT CURVE STRIP VI SCH ×4 (06:45→22:26)
--- NOTE | 2019-11-30 07:00 | NUR ---
Chest Tube Output 12ml of serosanguineous chest tube output during this RN's shift.
--- NOTE | 2019-11-30 07:15 | NUR ---
Chest Tube Air Leak At approximately 0600 continuous bubbling was noted in chest tube. No sign/symptoms of distress was noted at this time. Patient was laying in bed with even and unlabored respirations on 3L/min nasal cannula, SPO2: 93%. This RN assessed chest tube with Jw GRIDER day shift. Upon assessment insertion tube of chest tube, tubing was disconnected at proximal port. Tubing was cleaned with alcohol and reconnected. Air leak noted to stop. Patient is laying in bed with even and unlabored respirations. No sign/symptoms of distress noted or verbalized at this time. No subcutaneous crepitus noted at this time. Chest tube set up to suction as ordered by MD. Patient care endorsed to Jw GRIDER.
--- NOTE | 2019-11-30 07:15 | NUR ---
REGARDING CHEST TUBE AIR LEAK: PATIENT ASSESSED WITH NIGHT RN KAT, PER REPORT PATIENT DEVELOPED AIR LEAK IN CHEST TUBE. PATIENT ASSESSED, NO S/S OF DISTRESS NOTED. RESPIRATIONS EVEN AND UNLABORED. ASSESSED INSERTION SITE OF CHEST TUBE NOTED THAT TUBING WAS DISCONNECTED AT PROXIMAL PORT. TUBING CLEANED WITH ALCOHOL AND RECONNECTED. AIR LEAK NOTED TO STOP AT THIS POINT. NO SUBCUTANEOUS CREPITUS AT SITE NOTED. PATIENT RESPIRATIONS EVEN AND UNLABORED. PATIENT DENIES ANY SOB. CHEST TUBE SET-UP TO SUCTION PER M.D. ORDERS. WILL CONTINUE TO MONITOR.
[2019-11-30 07:45] LABS: Basophils # (auto) 0 10 ^3/uL (0-0.2); Basophils % (auto) 0.1 % (0.0-2.0); Eosinophils # (auto) 0 10 ^3/uL (0-0.8); Eosinophils % (auto) 0.4 % (0.0-7.0); Hematocrit 38.4 % (36.0-46.0); Hemoglobin 12.9 g/dL (12.2-16.2); Lymphocytes # (auto) 1.2 10 ^3/uL (0.4-5.4); Lymphocytes % (auto) 12.6 % (10.0-50.0); Mean Corpuscular Hemoglobin 30.5 pg (28.0-32.0); Mean Corpuscular Hgb Conc. 33.6 g/dL (32.0-36.0); Mean Corpuscular Volume 90.7 fL (80.0-100.0); Monocytes # (auto) 0.5 10 ^3/uL (0-1.3); Neutrophils # (auto) 7.6 10 ^3/uL (1.6-8.6); Neutrophils % (auto) 81.9 % (37.0-80.0); Nucleated Red Blood Cells % 0.1 %; Platelet Count (auto) 179 10^3/uL (140-450); Red Blood Cells 4.23 10^6/uL (4.0-5.20); Red Cell Distribution Width 16.7 % (11.8-14.3); White Blood Cell 9.3 10^3/uL (4.4-10.8)
[2019-11-30] MEDS: Glucerna Carbsteady SHAKE Vanilla 8oz PO SCH ×3 (08:00→18:00)
[2019-11-30 08:03] LABS: BUN/Creatinine Ratio 63.3; Calcium 8.8 mg/dL (8.5-10.1)
[2019-11-30] MEDS: BUDESONIDE (INHALATION) 180 MCG IH IN SCH ×2 (08:17→22:12)
[2019-11-30] MEDS: ALBUTEROL SULF HFA 90MCG INH 200DOSE IN SCH ×3 (08:17→22:12)
[2019-11-30] MEDS: SODIUM CHLOR 0.9% PF (SALINE LOCK) 10ML VIAL/SYR IV SCH ×2 (10:00→22:26)
[2019-11-30] MEDS: POTASSIUM EFFERVESENT TAB 25 MEQ GT SCH (10:00)
--- NOTE | 2019-11-30 10:42 | NUR ---
Jackie EDDY AT BEDSIDE. INFORMED OF PATIENT STATUS. INFORMED OF CHEST TUBE AND Jackie BAER'S PLAN. NO ORDERS RECEIVED IN REGARDS TO CHEST TUBE. INFORMED OF PATIENTS POTASSIUM AND REFUSAL OF PO POTASSIUM. RECEIVED NEW ORDERS. SEE EMAR.
[2019-11-30] MEDS ORDERED: POTASSIUM CHL 20MEQ/100ML 100 ML IV ONE ×2 (11:00→13:45)
[2019-11-30] MEDS: cefTRIAXone 1GM/50ML D5W 50 ML IV SCH (11:05)
[2019-11-30] MEDS: predniSONE 20 MG TAB PO SCH (11:05)
[2019-11-30] MEDS: FUROSEMIDE 20 MG TAB PO SCH (11:06)
[2019-11-30] MEDS: CHOLECALCIFEROL (VITD3) 1,000UNIT=25mCg TAB PO SCH (11:06)
[2019-11-30] MEDS: PANTOPRAZOLE 40 MG TAB PO SCH (11:06)
[2019-11-30] MEDS: APIXABAN 5 MG TAB PO SCH ×2 (11:06→22:27)
[2019-11-30] MEDS: SERTRALINE HCL 50 MG TAB PO SCH (11:06)
[2019-11-30] MEDS: METOPROLOL TARTRATE 50 MG TAB PO SCH ×2 (11:36→22:27)
[2019-11-30 12:30] VITALS: BP 124/75
[2019-11-30 17:00] VITALS: BP 132/70
[2019-11-30 18:09] VITALS: BP 132/70
--- NOTE | 2019-11-30 19:50 | NUR ---
PATIENT HAD SMALL BM. PATIENT CLEANED AND NEW SHEETS APPLIED TO BED. DRESSING TO MEDIAL SACRAL REMOVED AND AREA CLEANED AND THERAHONEY APPLIED TO SKIN WITH OPTIFOAM PLACED OVER AREA AT THE SACRUM. PATIENT TOLERATED WELL.
--- NOTE | 2019-11-30 21:10 | NUR ---
PATIENT TURNED TO LEFT SIDE. Addendum: 11/30/19 at 2117 by Caity Cespedes RN THERA HONEY AND OPTI FOAM APPLIED TO LOWER LEFT BUTTOCKS.
[2019-11-30 22:03] VITALS: BP 120/76
[2019-12-01 05:25] VITALS: BP 107/53
[2019-12-01] MEDS: SALINE 0.65 % NASAL SPRAY 45ML BOTTLE EACHNOSTRI SCH ×4 (05:59→22:35)
[2019-12-01] MEDS: LEVOTHYROXINE SODIUM 100 MCG TAB PO SCH (07:09)
[2019-12-01] MEDS: ACCU-CHEK COMFORT CURVE STRIP VI SCH ×4 (07:10→22:36)
[2019-12-01] MEDS: InsuLIN REG 1unit/0.01ml Soln (100units/ml) SC SCH ×4 (07:13→22:52)
--- NOTE | 2019-12-01 07:49 | NUR ---
DRESSING CHANGE DRESSING TO MEDIAL SACRAL REMOVED AND AREA CLEANED, AND THERAHONEY APPLIED TO SKIN WITH OPTIFOAM. PATIENT TOLERATED WELL.
[2019-12-01] MEDS: ALBUTEROL SULF HFA 90MCG INH 200DOSE IN SCH ×3 (08:25→22:24)
[2019-12-01] MEDS: BUDESONIDE (INHALATION) 180 MCG IH IN SCH ×2 (08:25→22:24)
[2019-12-01 09:00] VITALS: BP 151/88
[2019-12-01] MEDS: POTASSIUM EFFERVESENT TAB 25 MEQ GT SCH (09:27)
[2019-12-01] MEDS: predniSONE 20 MG TAB PO SCH (09:27)
[2019-12-01] MEDS: Glucerna Carbsteady SHAKE Vanilla 8oz PO SCH ×3 (09:27→18:53)
[2019-12-01] MEDS: cefTRIAXone 1GM/50ML D5W 50 ML IV SCH (09:27)
[2019-12-01] MEDS: SODIUM CHLOR 0.9% PF (SALINE LOCK) 10ML VIAL/SYR IV SCH ×2 (09:28→22:35)
[2019-12-01] MEDS: FUROSEMIDE 20 MG TAB PO SCH (09:28)
[2019-12-01] MEDS: APIXABAN 5 MG TAB PO SCH ×2 (09:28→22:35)
[2019-12-01] MEDS: PANTOPRAZOLE 40 MG TAB PO SCH (09:29)
[2019-12-01] MEDS: CHOLECALCIFEROL (VITD3) 1,000UNIT=25mCg TAB PO SCH (09:29)
[2019-12-01] MEDS: METOPROLOL TARTRATE 50 MG TAB PO SCH ×2 (09:29→22:36)
[2019-12-01] MEDS: ALPRAZolam 0.5 MG TAB PO PRN ×3 (09:30→22:51)
[2019-12-01] MEDS: SERTRALINE HCL 50 MG TAB PO SCH (09:30)
[2019-12-01] MEDS ORDERED: POTASSIUM CHL 20MEQ/100ML 100 ML IV ONE (12:00)
[2019-12-01 13:00] VITALS: BP 139/78
--- NOTE | 2019-12-01 14:47 | NUR ---
Nutrition Followup Notes Wt: 75 kg Pt is positive for COVID. Pt is with CCHO 60g diet, appetite is sporatic, continues to be poor aeb PO intake 25% x 3 days per RN note . Pt with Glucerna 1 carton TID ordered, continue d/t to poor po intake. Est energy needs 8825-6752 kcal (20-25 kcal/kg BW 74.4kg), Est protein needs 59-74g (0.8-1g/kg BW 74.4kg). Will reassess prn LABS: GLUC 181H, Alb 2.3L, Creat 0.30L, BUN 19H GI: Pt had last BM on 11/30 per RN doc BS: 15 mod risk. Refer to wound assessment report for full details. PES: Overweight r/t caloric intake in excess of needs aeb pt BMI is 29.1kg/m2 Comments 1) Refer pt to [facility]PD on DC. 2) Continue with Glucerna 1 carton TID until pt po intake improves 3) Continue current plan of care
[2019-12-01 17:00] VITALS: BP 136/77
--- NOTE | 2019-12-01 19:47 | NUR ---
Opening Shift Note Received report and assumed care of patient. Patient is awake and alert. No signs or symptoms of distress noted. Instructed patient on plan of care and to call for assistance as needed. Will continue to monitor.
[2019-12-01 22:00] VITALS: BP 133/74
[2019-12-02 05:29] VITALS: BP 142/80
[2019-12-02] MEDS: LEVOTHYROXINE SODIUM 100 MCG TAB PO SCH (06:58)
[2019-12-02] MEDS: SALINE 0.65 % NASAL SPRAY 45ML BOTTLE EACHNOSTRI SCH ×4 (06:58→23:32)
[2019-12-02] MEDS: ACCU-CHEK COMFORT CURVE STRIP VI SCH ×4 (07:13→23:19)
[2019-12-02] MEDS: InsuLIN REG 1unit/0.01ml Soln (100units/ml) SC SCH ×4 (07:14→23:25)
[2019-12-02] MEDS: BUDESONIDE (INHALATION) 180 MCG IH IN SCH ×2 (07:14→22:53)
[2019-12-02] MEDS: ALBUTEROL SULF HFA 90MCG INH 200DOSE IN SCH ×3 (07:14→22:52)
[2019-12-02 08:00] VITALS: BP 151/84
[2019-12-02] MEDS: Glucerna Carbsteady SHAKE Vanilla 8oz PO SCH ×3 (08:00→18:00)
[2019-12-02] MEDS: cefTRIAXone 1GM/50ML D5W 50 ML IV SCH (10:33)
[2019-12-02] MEDS: SODIUM CHLOR 0.9% PF (SALINE LOCK) 10ML VIAL/SYR IV SCH ×2 (10:34→23:32)
[2019-12-02] MEDS: POTASSIUM EFFERVESENT TAB 25 MEQ GT SCH (10:34)
[2019-12-02] MEDS: APIXABAN 5 MG TAB PO SCH ×2 (10:35→23:33)
[2019-12-02] MEDS: predniSONE 20 MG TAB PO SCH (10:35)
[2019-12-02] MEDS: CHOLECALCIFEROL (VITD3) 1,000UNIT=25mCg TAB PO SCH (10:36)
[2019-12-02] MEDS: PANTOPRAZOLE 40 MG TAB PO SCH (10:36)
[2019-12-02] MEDS: FUROSEMIDE 20 MG TAB PO SCH (10:36)
[2019-12-02] MEDS: SERTRALINE HCL 50 MG TAB PO SCH (10:36)
[2019-12-02] MEDS: METOPROLOL TARTRATE 50 MG TAB PO SCH ×2 (10:40→23:33)
[2019-12-02 12:00] VITALS: BP 143/69
--- NOTE | 2019-12-02 12:04 | NUR ---
REFUSED MEDICATION PATIENT RELUCTANT TO TAKE AM MEDICATIONS. EDUCATED ON THE RISK OF NOT TAKING MEDICATION PRESCRIBED.PATIENT DID TAKE BB, XARELTO
--- NOTE | 2019-12-02 12:14 | NUR ---
PROVIDER AT BEDSIDE PER MD SUCTION TURNED OFF, CXR TODAY. MEDICATION WILL BE ADJUSTED,AWAIT NEW ORDERS.
[2019-12-02 17:00] VITALS: BP 135/67
--- NOTE | 2019-12-02 19:40 | NUR ---
ENDORSED CARE TO NIGHT RN
--- NOTE | 2019-12-02 19:46 | NUR ---
ENDORSED CARE TO NIGHT RN
[2019-12-03 05:00] VITALS: BP 146/74
--- NOTE | 2019-12-03 05:10 | NUR ---
wound dressings changed
[2019-12-03 05:45] LABS: Mean Corpuscular Hemoglobin 30.4 pg (28.0-32.0); Mean Corpuscular Hgb Conc. 33.4 g/dL (32.0-36.0); Mean Corpuscular Volume 90.9 fL (80.0-100.0); Platelet Count (auto) 207 10^3/uL (140-450); Red Blood Cells 3.96 10^6/uL (4.0-5.20); Red Cell Distribution Width 17.1 % (11.8-14.3); White Blood Cell 8.1 10^3/uL (4.4-10.8)
[2019-12-03 06:00] LABS: Basophils % (manual) 0 (0.0-2.0); Blast Cells 0; Eosinophils % (manual) 0 (0-7); Metamyelocytes % 0; Myelocytes % 0; Promyelocytes % 0; Reactive Lymphocytes 0
[2019-12-03] MEDS: LEVOTHYROXINE SODIUM 100 MCG TAB PO SCH (06:03)
[2019-12-03] MEDS: ACCU-CHEK COMFORT CURVE STRIP VI SCH ×4 (06:04→21:29)
[2019-12-03] MEDS: InsuLIN REG 1unit/0.01ml Soln (100units/ml) SC SCH ×4 (06:06→21:29)
[2019-12-03 06:11] LABS: Albumin 2.1 g/dL (3.4-5.0); Bilirubin, Total 1.5 mg/dL (0.2-1.0); Calcium 8.1 mg/dL (8.5-10.1); Total Protein 4.9 g/dL (6.4-8.2)
[2019-12-03] MEDS: SALINE 0.65 % NASAL SPRAY 45ML BOTTLE EACHNOSTRI SCH ×4 (06:15→21:29)
[2019-12-03 06:17] LABS: Potassium 2.5 mmol/L (3.5-5.1)
--- NOTE | 2019-12-03 06:30 | NUR ---
critical lab: Potassium 2.5, hospitalist paged.
--- NOTE | 2019-12-03 06:51 | NUR ---
hospitalist Jose Alberto new orders received: Potassium ER PO 40meq once. orders read back and verified.
[2019-12-03] MEDS ORDERED: POTASSIUM CHL 20 Meq TABLET PO ONE (07:00)
[2019-12-03 07:01] LABS: Band Neutrophils % (manual) 2; Lymphocytes % (manual) 5 (10.0-50.0); Monocytes % (manual) 4 (0-12)
--- NOTE | 2019-12-03 07:30 | NUR ---
closing note pt resting comfortably. no complaints of pain or discomfort. no s/s of distress. endorsed care to day shift MARNI Smith.
[2019-12-03] MEDS: BUDESONIDE (INHALATION) 180 MCG IH IN SCH ×2 (07:45→21:13)
[2019-12-03] MEDS: ALBUTEROL SULF HFA 90MCG INH 200DOSE IN SCH ×3 (07:45→21:13)
[2019-12-03 08:00] VITALS: BP 145/79
--- NOTE | 2019-12-03 08:00 | NUR ---
Opening Shift Note Received report and assumed care of patient. Patient is awake and alert, verbalized she is depressed and tearful, denied thoughts of self harm or suicide. No signs or symptoms of physical distress noted.Suction remains off for chest tube, oxygen via nasal cannula @ 2 L saturation at 96%.Encouraged patient to eat breakfast and take medications, she stated in a low quiver of a voice "I might we will see." Instructed patient on plan of care and to call for assistance as needed. Will continue to monitor.
[2019-12-03] MEDS: METOPROLOL TARTRATE 50 MG TAB PO SCH ×2 (10:30→21:28)
--- NOTE | 2019-12-03 10:36 | NUR ---
GAVE EFFERVESCENT POTASSIUM PO.TOLERATED WELL.
[2019-12-03 12:00] VITALS: BP 132/75
[2019-12-03] MEDS: Glucerna Carbsteady SHAKE Vanilla 8oz PO SCH ×3 (12:00→18:25)
[2019-12-03] MEDS: cefTRIAXone 1GM/50ML D5W 50 ML IV SCH (12:31)
[2019-12-03] MEDS: APIXABAN 5 MG TAB PO SCH ×2 (12:31→21:28)
[2019-12-03] MEDS: POTASSIUM EFFERVESENT TAB 25 MEQ GT SCH (12:31)
[2019-12-03] MEDS: SODIUM CHLOR 0.9% PF (SALINE LOCK) 10ML VIAL/SYR IV SCH ×2 (12:31→21:28)
[2019-12-03] MEDS: SERTRALINE HCL 50 MG TAB PO SCH (12:32)
[2019-12-03] MEDS: FUROSEMIDE 20 MG TAB PO SCH (12:32)
[2019-12-03] MEDS: PANTOPRAZOLE 40 MG TAB PO SCH (12:32)
[2019-12-03] MEDS: CHOLECALCIFEROL (VITD3) 1,000UNIT=25mCg TAB PO SCH (12:32)
--- NOTE | 2019-12-03 14:30 | NUR ---
UP WITH PT. MAXIMUM ASSIST WITH 2 PEOPLE PATIENT TRANSFERRED TO CHAIR. PATIENT SAT UP IN CHAIR FOR 10 MINUTES TOLERATED WELL.
--- NOTE | 2019-12-03 14:30 | NUR ---
FULL BED BATH GIVEN, COMPLETE LINEN CHANGE PATIENT TOLERATED WELL.
[2019-12-03 17:00] VITALS: BP 134/84
--- NOTE | 2019-12-03 17:11 | NUR ---
PATIENT ATE 1 WHOLE JELLO. TOLERATED WELL.
--- NOTE | 2019-12-03 18:26 | NUR ---
UPDATED DTR ON POC.
--- NOTE | 2019-12-03 19:06 | NUR ---
endorsed care to night rn. patient left sitting up in bed eating dinner at a slow pace.
--- NOTE | 2019-12-03 19:50 | NUR ---
Opening Shift Note Assumed care of patient, awake and alert. Patient really sad about hospital situation. No S/S of distress/SOB or pain. Patient on 3L NC sating at 96%. Flores hanging below bed bed, draining to gravity. Instructed on POC and to call for assist PRN, will continue to monitor for changes Q1hr and PRN.
[2019-12-03 22:35] VITALS: BP 140/93
[2019-12-04 05:00] VITALS: BP 137/78
--- NOTE | 2019-12-04 05:00 | NUR ---
BM/Wound Dressing Change Patient had a small smear brown BM. Patient cleaned and change. Wound dressings changed.
[2019-12-04] MEDS: InsuLIN REG 1unit/0.01ml Soln (100units/ml) SC SCH ×4 (06:10→22:00)
[2019-12-04] MEDS: SALINE 0.65 % NASAL SPRAY 45ML BOTTLE EACHNOSTRI SCH ×4 (06:10→22:15)
[2019-12-04] MEDS: LEVOTHYROXINE SODIUM 25 MCG TAB PO SCH (06:10)
[2019-12-04] MEDS: ACCU-CHEK COMFORT CURVE STRIP VI SCH ×4 (06:10→22:15)
[2019-12-04] MEDS: ALBUTEROL SULF HFA 90MCG INH 200DOSE IN SCH ×3 (06:52→21:55)
[2019-12-04] MEDS: BUDESONIDE (INHALATION) 180 MCG IH IN SCH ×2 (06:52→21:55)
[2019-12-04 07:00] LABS: BUN/Creatinine Ratio 52.4; Calcium 8.1 mg/dL (8.5-10.1); Magnesium 2.2 mg/dL (1.6-2.6)
--- NOTE | 2019-12-04 07:15 | NUR ---
Opening Shift Note Received report and assumed care of patient. Patient is awake and alert, verbalized she is depressed , denied thoughts of self harm or suicide. No signs or symptoms of physical distress noted.Suction remains off for chest tube, oxygen via nasal cannula @ 3 L saturation at 99%.Encouraged patient to eat breakfast and take medications, she stated " I dont feel like eating today." No nausea or vomiting, abdomen soft bowel sounds active x 4 quadrants. All staff caring for her will continue to encourage patient to eat and take medication. Instructed patient on plan of care and to call for assistance as needed. Will continue to monitor
[2019-12-04 08:00] VITALS: BP 154/104
--- NOTE | 2019-12-04 08:30 | NUR ---
BREAKFAST ATE 25%. THIS RN STOOD BEDSIDE FOR 15 MINUTES TO ASSIST PATIENT. PATIENT STATED SEVERAL TIMES, "NO MORE FOOD LAY ME FLAT I DONT WANT TO EAT!" PATIENT DENIED ABDOMINAL PAIN, NO N/V, ABDOMEN SOFT. RE-ENFORCED EDUCATION THE IMPORTANCE OF PO INTAKE PATIENT VERBALIZED, " I KNOW I WANT TO GET BETTER, LAY ME DOWN LAY ME FLAT". WILL CONTINUE TO RE-POSITION Q 2 HOURS AND MONITOR.
--- NOTE | 2019-12-04 09:30 | NUR ---
DRESSING CHANGED ON SACRUM. PATIENT TOLERATED WELL. WILL CONTINUE TO MONITOR.
[2019-12-04] MEDS: Glucerna Carbsteady SHAKE Vanilla 8oz PO SCH ×3 (10:54→18:00)
[2019-12-04] MEDS: SODIUM CHLOR 0.9% PF (SALINE LOCK) 10ML VIAL/SYR IV SCH ×2 (10:54→22:15)
[2019-12-04] MEDS: cefTRIAXone 1GM/50ML D5W 50 ML IV SCH (10:54)
[2019-12-04] MEDS: POTASSIUM EFFERVESENT TAB 25 MEQ GT SCH (10:54)
[2019-12-04] MEDS: METOPROLOL TARTRATE 50 MG TAB PO SCH ×2 (10:55→22:15)
[2019-12-04] MEDS: predniSONE 5 MG TAB PO SCH (10:55)
[2019-12-04] MEDS: APIXABAN 5 MG TAB PO SCH ×2 (10:55→22:15)
[2019-12-04] MEDS: FUROSEMIDE 20 MG TAB PO SCH (10:55)
[2019-12-04] MEDS: PANTOPRAZOLE 40 MG TAB PO SCH (10:56)
[2019-12-04] MEDS: CHOLECALCIFEROL (VITD3) 1,000UNIT=25mCg TAB PO SCH (10:56)
[2019-12-04] MEDS: SERTRALINE HCL 50 MG TAB PO SCH (10:56)
[2019-12-04 12:00] VITALS: BP 137/82
--- NOTE | 2019-12-04 12:45 | NUR ---
chest tube d/c'd This RN was at lunch when tube removed bedside by Dr Mitchell.RN Diann assisted MD with removal and dressing application. Per report patient tolerated well. Patient denied pain, no SOB or bleeding from site. Will continue to monitor.
--- NOTE | 2019-12-04 12:45 | NUR ---
CHEST TUBE REMOVAL DR LEACH AT BED SIDE WITH CHEST TUBE REMOVAL, SUTURES REMOVED, PETRILLIUM GAUZE WITH DRY DRESSING APPLIED, CHEST TUBE TUBING REMOVED AFTER PT TOOK A DEEP BREATH AND HOLD, TOLERATED WELL, DRESSING SECURED WITH A THICK TAPE, NO DISTRESS NOTED
[2019-12-04] MEDS ORDERED: POTASSIUM CHL 20 Meq TABLET PO ONE (13:15)
--- NOTE | 2019-12-04 15:27 | NUR ---
Nutrition Followup Notes Wt: 75 kg Pt is positive for COVID. Pt is with CCHO 60g diet with Glucerna 1 carton tid with inadequate PO of 25% x 2 days per RN doc Est energy needs 5677-7576 kcal (20-25 kcal/kg BW 74.4kg), Est protein needs 59-74g (0.8-1g/kg BW 74.4kg). Will reassess prn LABS: GLU 178 H CA 8.1 L, CO2 33 H ALB 2.1 L GI: Pt had last BM on 11/30 per RN doc BS: 11 high risk. Refer to wound assessment report for full details. PES: Overweight r/t caloric intake in excess of needs aeb pt BMI is 29.1kg/m2 Comments: Will continue to monitor PO intake skin status. F/u mod 3-5 days Rec: 1) Refer pt to [facility] on DC. 2) Consider prostat 1 packet bid 3) Continue current plan of care
--- NOTE | 2019-12-04 15:29 | NUR ---
Caro CAMARILLO S/W PATIENT . PATIENT VERBALIZED SHE WANTS TO GO HOME AND NOT TO A SNF. RABIA TO FOLLOW UP WITH D/C PLANNING.
--- NOTE | 2019-12-04 15:48 | NUR ---
D/C Planning Regarding social service consult for SNF placement. Per patient and family they do not want SNF placement. Per patient she has good family support and they will be able to help patient at home. Patient daughter Lavren was informed that home health for physical therapy, nurse aide, 3 in 1 bed side commode, wheelchair, home oxygen and hospital bed will be authorized by health plan. Lavern verbalize understanding d/c plan.
[2019-12-04] MEDS ORDERED: levoFLOXacin 500MG 100 ML IV ONE (16:30)
--- NOTE | 2019-12-04 16:30 | NUR ---
PT PATIENT SAT AT THE EDGE OF THE BED FOR 5 MINUTES WITH MAXIMUM ASSISTANCE FROM 2 PT STAFF AND THIS RN. PATIENT REFUSED TO ALLOW STAFF TO TRANSFER HER TO THE CHAIR;PATIENT BEGAN CRYING AND SAID "NO NO GIVE ME FIVE MORE MINUTES". PATIENT RETURNED TO LAYING POSITION ON RIGHT SIDE. PATIENT LEFT ON 5 LITERS SATURATION 93%, DENIED PAIN NO SOB.WILL CONTINUE TO MONITOR.
--- NOTE | 2019-12-04 16:30 | NUR ---
DR MARINELLI D/Tan AVELAR STARTED LEVAQUIN.
[2019-12-04 16:56] VITALS: BP 141/89
--- NOTE | 2019-12-04 17:19 | NUR ---
MEDICATION ALLERGIES VERIFIED; PATIENT ALLERGIC TO LEVAQUIN PER PHARMACY PATIENT PREVIOUSLY CONFIRMED TO HAVE SEVERE ALLERGIC REACTION. PROVIDER NOT PAGABLE, WILL ENDORSE TO NIGHT RN TO PASS ON TO DAY SHIFT.
[2019-12-04] MEDS ORDERED: levoFLOXacin 500MG 100 ML IV SCH (18:20)
--- NOTE | 2019-12-04 19:00 | NUR ---
ENDORSED CARE TO NIGHT RN
--- NOTE | 2019-12-04 19:40 | NUR ---
Opening Shift Note Assumed care of patient, awake and alert. No S/S of distress/SOB or pain. Flores draining hanging below bed, draining to gravity. Patient on 3L NC. Instructed on POC and to call for assist PRN, will continue to monitor for changes Q1hr and PRN.
[2019-12-04 22:00] VITALS: BP 130/77
[2019-12-05 05:00] VITALS: BP 132/70
[2019-12-05] MEDS: LEVOTHYROXINE SODIUM 25 MCG TAB PO SCH (06:00)
[2019-12-05] MEDS: SALINE 0.65 % NASAL SPRAY 45ML BOTTLE EACHNOSTRI SCH ×4 (06:00→21:48)
[2019-12-05] MEDS: ACCU-CHEK COMFORT CURVE STRIP VI SCH ×4 (06:01→21:45)
[2019-12-05] MEDS: InsuLIN REG 1unit/0.01ml Soln (100units/ml) SC SCH ×4 (06:01→22:19)
--- NOTE | 2019-12-05 06:30 | NUR ---
Wound Dressing Patient refused qshift dressing change. She said "lets do it during the day". Educated patient but still refused.
--- NOTE | 2019-12-05 07:30 | NUR ---
Opening Shift Note Assumed care of patient, awake and alert, tearful. No S/S of distress/SOB or pain. Instructed on POC and to call for assist PRN, will continue to monitor for changes Q1hr and PRN.
[2019-12-05 08:00] VITALS: BP 141/80
--- NOTE | 2019-12-05 10:33 | NUR ---
I spoke with patients son Jadiel he states that the family will not be able to care for the patient at home and would like her to go to SNF for a few weeks, patient states she would be willing, CM paged awaiting call back.
[2019-12-05] MEDS: SODIUM CHLOR 0.9% PF (SALINE LOCK) 10ML VIAL/SYR IV SCH ×2 (10:55→21:48)
[2019-12-05] MEDS: predniSONE 5 MG TAB PO SCH (10:55)
[2019-12-05] MEDS: Glucerna Carbsteady SHAKE Vanilla 8oz PO SCH ×3 (10:55→17:59)
[2019-12-05] MEDS: APIXABAN 5 MG TAB PO SCH ×2 (10:55→21:48)
[2019-12-05] MEDS: POTASSIUM EFFERVESENT TAB 25 MEQ GT SCH (10:55)
[2019-12-05] MEDS: PANTOPRAZOLE 40 MG TAB PO SCH (10:56)
[2019-12-05] MEDS: FUROSEMIDE 20 MG TAB PO SCH (10:56)
[2019-12-05] MEDS: SERTRALINE HCL 50 MG TAB PO SCH (10:57)
[2019-12-05] MEDS: CHOLECALCIFEROL (VITD3) 1,000UNIT=25mCg TAB PO SCH (10:57)
[2019-12-05] MEDS: METOPROLOL TARTRATE 50 MG TAB PO SCH ×2 (10:58→21:48)
[2019-12-05 12:00] VITALS: BP 148/81
[2019-12-05] MEDS: BUDESONIDE (INHALATION) 180 MCG IH IN SCH ×2 (12:28→23:39)
[2019-12-05] MEDS: ALBUTEROL SULF HFA 90MCG INH 200DOSE IN SCH ×3 (12:28→23:39)
[2019-12-05] MEDS ORDERED: SULFAMETHOX W/TRIMETH(800/160MG) DS TAB PO SCH (13:27)
[2019-12-05] MEDS ORDERED: SULFAMETHOX W/TRIMETH(800/160MG) DS TAB PO ONE (13:30)
[2019-12-05] MEDS ORDERED: DOXYCYCLINE 100 MG TAB/CAP PO ONE (13:30)
[2019-12-05 17:00] VITALS: BP 146/83
--- NOTE | 2019-12-05 19:15 | NUR ---
opening note pt resting in semi fowlers with HOB at 30 degrees. respirations even and nonlabored on 3L nc. no c/o pain or distress. michel catheter draining to gravity. bed in low locked position, call light within reach.
[2019-12-05 21:12] VITALS: BP 117/67
[2019-12-05] MEDS: DOXYCYCLINE 100 MG TAB/CAP PO SCH (21:46)
--- NOTE | 2019-12-06 05:00 | NUR ---
wound dressing changed per order
[2019-12-06 05:48] VITALS: BP 143/77
[2019-12-06] MEDS: SALINE 0.65 % NASAL SPRAY 45ML BOTTLE EACHNOSTRI SCH ×4 (05:58→21:15)
[2019-12-06] MEDS: ACCU-CHEK COMFORT CURVE STRIP VI SCH ×4 (05:59→21:19)
[2019-12-06] MEDS: LEVOTHYROXINE SODIUM 25 MCG TAB PO SCH (05:59)
[2019-12-06] MEDS: InsuLIN REG 1unit/0.01ml Soln (100units/ml) SC SCH ×4 (06:00→21:20)
[2019-12-06] MEDS: ALBUTEROL SULF HFA 90MCG INH 200DOSE IN SCH ×3 (07:10→22:20)
[2019-12-06] MEDS: BUDESONIDE (INHALATION) 180 MCG IH IN SCH ×2 (07:10→22:20)
[2019-12-06 09:00] VITALS: BP 154/87
[2019-12-06] MEDS: Glucerna Carbsteady SHAKE Vanilla 8oz PO SCH ×3 (11:05→18:13)
[2019-12-06] MEDS: POTASSIUM EFFERVESENT TAB 25 MEQ GT SCH (11:06)
[2019-12-06] MEDS: APIXABAN 5 MG TAB PO SCH ×2 (11:06→21:18)
[2019-12-06] MEDS: DexAMETHasone 4 MG TAB PO SCH (11:06)
[2019-12-06] MEDS: SODIUM CHLOR 0.9% PF (SALINE LOCK) 10ML VIAL/SYR IV SCH ×2 (11:06→21:16)
[2019-12-06] MEDS: FUROSEMIDE 20 MG TAB PO SCH (11:07)
[2019-12-06] MEDS: CHOLECALCIFEROL (VITD3) 1,000UNIT=25mCg TAB PO SCH (11:08)
[2019-12-06] MEDS: SERTRALINE HCL 50 MG TAB PO SCH (11:08)
[2019-12-06] MEDS: METOPROLOL TARTRATE 50 MG TAB PO SCH ×2 (11:08→21:18)
[2019-12-06] MEDS: PANTOPRAZOLE 40 MG TAB PO SCH (11:09)
[2019-12-06] MEDS: DOXYCYCLINE 100 MG TAB/CAP PO SCH ×2 (11:09→21:19)
--- NOTE | 2019-12-06 12:23 | NUR ---
re-assessment I spoke to patient regarding SNF placement. Patient is refusing SNF. Patient informed me she want to return home on discharge. I spoke with Obi and he agreed to take patient home on discharge. I informed Obi patient is refusing SNF. Obi agreed to discharge home. Addendum: 12/10/19 at 1430 by Maryjane MCCORMACK Amended: Links added.
[2019-12-06 12:51] VITALS: BP 152/74
--- NOTE | 2019-12-06 16:12 | NUR ---
WOUND CARE NOTE: WOUND CARE IN TO SEE PATIENT AT THIS TIME FOR WOUND RE-EVALUATION. PATIENT CONTINUES TO BE IN COVID UNIT. SHE IS RESTING ON SPECIALTY AIR MATTRESS. CURRENT DAWIT SCORE IS 12. PATIENT IS ABLE TO ASSIST WITH HER TURNING/REPOSITIONING. PATIENT HAS BEEN REFUSING REPOSITIONING MULTIPLE TIMES. CURRENTLY, SHE IS ALLOWING FOR REPOSITIONING TODAY. PATIENT EDUCATED ON NEED TO REDISTRIBUTE PRESSURE, PATIENT VERBALIZING UNDERSTANDING. LEFT AND RIGHT HEELS HAVE PINK BLANCHABLE SKIN. STAGE 1 PRESSURE INJURIES APPEAR TO HAVE RESOLVED. SHE CONTINUES TO WEAR BONNY FOAM BOOTS TO OFFLOAD PRESSURE. PATIENT TURNED TO LEFT SIDE. PATIENT'S SACRAL WOUND HAS WORSENED, NOW APPEARING A 13 X 10 CM DTI. SKIN IS DARK PURPLE, WITH OPEN STAGE 2 PARTIAL THICKNESS OPEN AREAS NOTED IN VARIOUS AREAS WITHIN DTI. WOUND IS DRAINING LIGHT AMOUNT OF SEROUS DRAINAGE. PHOTOGRAPHED WOUND FOR REFERENCE. CLEANSED AND DRESSED WOUND PER MD ORDER. PATIENT WOULD BENEFIT FROM SIDE TO SIDE POSITIONING, AVOIDING SUPINE. RECOMMEND: SIDE TO SIDE POSITIONING, AVOIDING SUPINE; CONTINUATION WITH ALL OTHER WOUND CARE ORDERS PREVIOUSLY PRESCRIBED BY MD. WOUND CARE TEAM WILL CONTINUE TO MONITOR. Addendum: 12/06/19 at 1752 by MOHSEN MELÉNDEZ RN RN Amended: Links added.
[2019-12-06 17:00] VITALS: BP 131/89
[2019-12-06 19:31] VITALS: BP 131/89
[2019-12-06 23:15] VITALS: BP 154/83
--- NOTE | 2019-12-07 05:00 | NUR ---
dressings changed per order
[2019-12-07 05:40] VITALS: BP 150/78
[2019-12-07] MEDS: LEVOTHYROXINE SODIUM 25 MCG TAB PO SCH (06:09)
[2019-12-07] MEDS: SALINE 0.65 % NASAL SPRAY 45ML BOTTLE EACHNOSTRI SCH ×4 (06:10→22:09)
[2019-12-07] MEDS: ACCU-CHEK COMFORT CURVE STRIP VI SCH ×4 (06:10→22:10)
[2019-12-07] MEDS: InsuLIN REG 1unit/0.01ml Soln (100units/ml) SC SCH ×4 (06:11→22:22)
[2019-12-07] MEDS: BUDESONIDE (INHALATION) 180 MCG IH IN SCH ×2 (06:58→22:49)
[2019-12-07] MEDS: ALBUTEROL SULF HFA 90MCG INH 200DOSE IN SCH ×3 (06:58→22:49)
--- NOTE | 2019-12-07 07:15 | NUR ---
closing note pt resting in semi fowlers with HOB at 30 degrees. respirations even and nonlabored on 3Lnc. endorsed care to day shift RN Diann
--- NOTE | 2019-12-07 08:00 | NUR ---
ASSESSMENT NOTE PT IS ALERT ORIENTED X4, RESTING IN BED IN LOWFOWLER POSITION AT HER LEFT SIDE ON AIR MATTRESS, , PT CONTINUE APPEAR VERY DEPRESSED, OXYGEN 3 L NC, WEAK COUGH NOTED, HEAD OF BED ELEVATED FOR ASPIRATION PRECAUTIONS, BONNY BOOT NOTED ON BOTH LOWER EXTREMITIES,BARAJAS HEELS ARE PINK AND BLANCHABLE, BOTH ARE ELEVATED ON PILLOWS, OPTIFOAM NOTED AT THE SACRUM AREA, PT MADE AWARE OF THE PLAN OF CARE TO BE REPOSITION FROM SIDE TO SIDE TO PROMOTE WOUND HEALING, ASPIRATION PRECAUTIONS AT ALL TIMES, FALL RISK PRECAUTIONS, CALL LIGHT WITHIN REACH
--- NOTE | 2019-12-07 08:02 | NUR ---
CONTINUE ASSESSMENT NOTE PT CONTINUE TO HAVE BRUISES AT LEFT UPPER ARM AND FOREARM, RT UPPER NECK AREA, RT UPPER HEST AND ACROSS THE LOWER ABDOMEN AREA
[2019-12-07 09:00] VITALS: BP 150/85
[2019-12-07] MEDS: Glucerna Carbsteady SHAKE Vanilla 8oz PO SCH ×3 (09:49→18:00)
[2019-12-07] MEDS: APIXABAN 5 MG TAB PO SCH ×2 (09:50→22:22)
[2019-12-07] MEDS: POTASSIUM EFFERVESENT TAB 25 MEQ GT SCH (09:50)
[2019-12-07] MEDS: DexAMETHasone 4 MG TAB PO SCH (09:50)
[2019-12-07] MEDS: SODIUM CHLOR 0.9% PF (SALINE LOCK) 10ML VIAL/SYR IV SCH ×2 (09:50→22:09)
[2019-12-07] MEDS: DOXYCYCLINE 100 MG TAB/CAP PO SCH ×2 (09:51→22:09)
[2019-12-07] MEDS: METOPROLOL TARTRATE 50 MG TAB PO SCH ×2 (09:51→22:09)
[2019-12-07] MEDS: PANTOPRAZOLE 40 MG TAB PO SCH (09:51)
[2019-12-07] MEDS: SERTRALINE HCL 50 MG TAB PO SCH (09:52)
[2019-12-07] MEDS: CHOLECALCIFEROL (VITD3) 1,000UNIT=25mCg TAB PO SCH (09:52)
[2019-12-07] MEDS: FUROSEMIDE 20 MG TAB PO SCH (10:00)
[2019-12-07] MEDS: HYDROcodone-ACET 5/325MG TAB PO PRN (11:31)
--- NOTE | 2019-12-07 12:30 | NUR ---
DR LEACH AT BED SIDE FOLLOWING UP ON PT INFORM PT THAT HE WILL GOING TO TRANSFER HER TO SNF EITHER MONDAY OR MONDAY BUT SHE NEED TO WORK MORE WITH PHYSICAL THERAPY
[2019-12-07 12:37] VITALS: BP 130/74
--- NOTE | 2019-12-07 12:38 | NUR ---
LUNCH PT REFUSED TO EAT LUNCH STATED PUT ME DOWN PLEASE, I WILL EAT LATER>
[2019-12-07] MEDS ORDERED: POTASSIUM EFFERVESENT TAB 25 MEQ PO ONE (13:00)
[2019-12-07] MEDS ORDERED: FUROSEMIDE 20 MG/2 ML VIAL IV ONE (13:00)
--- NOTE | 2019-12-07 13:08 | NUR ---
IN HOUSE COVID SAMPLE SENT TO LAB
--- NOTE | 2019-12-07 14:55 | NUR ---
BM PT HAS A SOFT BM, CLEANSE SKIN WELL WITH SOAP AND WATER, PAT IT TO DRY
--- NOTE | 2019-12-07 15:00 | NUR ---
WOUND CARE CLEANSE SACRUM PRESSURE WITH SOAP AND WATER, PAT TI DRY, THERA HONEY APPLIED, COVERED WITH OPTIFOAM CLEANSE LEFT LOWER BUTTOCKS AREA WITH NS, PAT IT TO DRY, SMALL OPTIFOAM APPLIED
--- NOTE | 2019-12-07 16:00 | NUR ---
PICC LINE DRESSING CHANGE DONE PER PROTOCOL, OLD DRESSING REMOVED, CLEANSE WITH ACHOL , NEW DRESSING APPLIED, NO SIGNS OF INFECTION NOTED
--- NOTE | 2019-12-07 16:29 | NUR ---
2 attempts made for PT treatment. Both times patient stating "Please just let me down and close the curtian. Please, I beg you." Attempted to address patients needs and ask why she did not want to get up but pt unable to verbalize and continually asking, "Please just lay me down." Pt does not answer when asked if she has pain, SpO2 94%. I educated the pt on importance of getting up to sit EOB and practice transfer training to improve strength and endurance. Pt was also educated on need to participate in physical therapy here at the hospital to allow for SNF placement and eventual discharge home. Pt states, "I know," but continues to refuse. MARNI Tidwell aware, will attempt again tomorrow.
--- NOTE | 2019-12-07 16:36 | NUR ---
POTASSIUM EFFERVESCENT PT IS REFUSING TO DRINK K EFFERVESCENT, PAGE DR DAHL TO OBTAIN PO POTASSIUM
[2019-12-07] MEDS ORDERED: POTASSIUM CHL 20 Meq TABLET PO ONE (16:45)
[2019-12-07 16:51] VITALS: BP 128/70
--- NOTE | 2019-12-07 18:00 | NUR ---
CONTINUE REPOSITIONING PT FROM SIDE TO SIE, CONTINUE MONITORING
--- NOTE | 2019-12-07 18:49 | NUR ---
PT CONTINUE STABLE, CONTINUE MONITORING
--- NOTE | 2019-12-07 19:17 | NUR ---
PT REQUESTED TO CALL HER SHANA, MADE THE PHONE CALL AND TRANSFER IT TO THE PT
--- NOTE | 2019-12-07 19:20 | NUR ---
Opening Shift Note Assumed care of patient, awake, alert and oriented x4, on 3L of oxygen via NC with even and unlabored respirations, no S/S of distress/SOB or pain. Bed in lowest locked position, side rails up x2, and call light within reach. Instructed on POC and to call for assist PRN, will continue to monitor for changes Q1hr and PRN.
[2019-12-07 21:30] VITALS: BP 130/73
--- NOTE | 2019-12-08 03:50 | NUR ---
Assumed Care of Patient Received report from Casimiro GRIDER. Assumed care of patient. Patient is currently laying in bed, eyes closed, with even and unlabored respirations. Patient is on 3L/min NC, SPO2: 97% at this time. No sign/symptoms of distress noted or verbalized at this time. Bed is locked in lowest position, side rails x 2 are up, call light is within, and bed alarm is on. Will continue care.
[2019-12-08] MEDS: SALINE 0.65 % NASAL SPRAY 45ML BOTTLE EACHNOSTRI SCH ×4 (05:40→23:08)
[2019-12-08] MEDS: LEVOTHYROXINE SODIUM 25 MCG TAB PO SCH (05:40)
[2019-12-08 06:16] LABS: Hemoglobin 12.2 g/dL (12.2-16.2); Mean Corpuscular Hemoglobin 29.8 pg (28.0-32.0); Mean Corpuscular Hgb Conc. 33.1 g/dL (32.0-36.0); Mean Corpuscular Volume 90.1 fL (80.0-100.0); Platelet Count (auto) 288 10^3/uL (140-450); Red Cell Distribution Width 17.9 % (11.8-14.3); White Blood Cell 14.4 10^3/uL (4.4-10.8)
--- NOTE | 2019-12-08 06:20 | NUR ---
Wound Care Wound care performed as ordered. Posterior sacrum wound, greatest bed is red with eschar. Posterior sacrum cleansed with wound cleanser, patted dry with sterile gauze, therahoney applied, and covered with an Optifoam placed. Patient noted to have a skin tear open to left lower buttock. Skin tear cleansed with wound cleanser, patted dry with sterile gauze, zguard applied, and skin tear covered with an Optifoam. Patient tolerated well and repositioned.
[2019-12-08 06:23] LABS: Basophils % (manual) 0 (0.0-2.0); Blast Cells 0; Eosinophils % (manual) 0 (0-7); Myelocytes % 0; Promyelocytes % 0; Reactive Lymphocytes 0
[2019-12-08 06:32] LABS: INR 1.12 (0.9-1.15); Partial Thromboplastin Time 25.4 sec (23.0-31.2)
[2019-12-08 06:38] LABS: Potassium 3.3 mmol/L (3.5-5.1)
[2019-12-08] MEDS: ACCU-CHEK COMFORT CURVE STRIP VI SCH ×4 (06:44→23:22)
[2019-12-08 06:46] LABS: Albumin 2.1 g/dL (3.4-5.0); BUN/Creatinine Ratio 48.4; Bilirubin, Total 1.3 mg/dL (0.2-1.0); Calcium 8.6 mg/dL (8.5-10.1); Magnesium 2.2 mg/dL (1.6-2.6); Phosphorus 2.1 mg/dL (2.5-4.90); Total Protein 5.2 g/dL (6.4-8.2)
[2019-12-08] MEDS: InsuLIN REG 1unit/0.01ml Soln (100units/ml) SC SCH ×4 (06:46→23:26)
[2019-12-08] MEDS: ALBUTEROL SULF HFA 90MCG INH 200DOSE IN SCH ×3 (06:56→22:37)
[2019-12-08] MEDS: BUDESONIDE (INHALATION) 180 MCG IH IN SCH ×2 (06:56→22:37)
--- NOTE | 2019-12-08 08:00 | NUR ---
ASSESSMENT NOTE PT IS ALERT ORIENTED X4, RESTING IN BED IN LOWFOWLER POSITION AT HER LEFT SIDE ON AIR MATTRESS, , PT CONTINUE APPEAR VERY DEPRESSED, OXYGEN 3 L NC, WEAK COUGH NOTED, HEAD OF BED ELEVATED FOR ASPIRATION PRECAUTIONS, BONNY BOOT NOTED ON BOTH LOWER EXTREMITIES,BARAJAS HEELS ARE PINK AND BLANCHABLE, BOTH ARE ELEVATED ON PILLOWS, OPTIFOAM NOTED AT THE SACRUM AREA, PT MADE AWARE OF THE PLAN OF CARE TO BE REPOSITION FROM SIDE TO SIDE TO PROMOTE WOUND HEALING, PT CONTINUE TO HAVE ECCHYMOSIS AT LEFT UPPER ARM , FOREARM, BRUISES AT THE RT SIDE OF HER NECK, RT UPPER CHEST, AND ACROSS THE ABDOMEN AREA, ASPIRATION PRECAUTIONS AT ALL TIMES, FALL RISK PRECAUTIONS, CALL LIGHT WITHIN REACH
[2019-12-08 08:19] VITALS: BP 134/50
[2019-12-08 08:53] LABS: Band Neutrophils % (manual) 4; Lymphocytes % (manual) 8 (10.0-50.0); Metamyelocytes % 1; Monocytes % (manual) 2 (0-12)
[2019-12-08] MEDS: Glucerna Carbsteady SHAKE Vanilla 8oz PO SCH ×3 (09:31→18:00)
[2019-12-08] MEDS: SODIUM CHLOR 0.9% PF (SALINE LOCK) 10ML VIAL/SYR IV SCH ×2 (09:31→23:09)
[2019-12-08] MEDS: POTASSIUM CHL 20 Meq TABLET PO SCH (09:57)
[2019-12-08] MEDS: APIXABAN 5 MG TAB PO SCH ×2 (09:57→23:08)
[2019-12-08] MEDS: DexAMETHasone 4 MG TAB PO SCH (09:57)
[2019-12-08] MEDS: PANTOPRAZOLE 40 MG TAB PO SCH (09:58)
[2019-12-08] MEDS: DOXYCYCLINE 100 MG TAB/CAP PO SCH ×2 (09:58→22:00)
[2019-12-08] MEDS: METOPROLOL TARTRATE 50 MG TAB PO SCH ×2 (09:58→23:09)
[2019-12-08] MEDS: CHOLECALCIFEROL (VITD3) 1,000UNIT=25mCg TAB PO SCH (09:59)
[2019-12-08] MEDS: SERTRALINE HCL 50 MG TAB PO SCH (09:59)
--- NOTE | 2019-12-08 10:00 | NUR ---
GOLF TOURNAMENT CONSULTANT AT BED SIDE
--- NOTE | 2019-12-08 10:10 | NUR ---
DR DAHL AT BED SIDE FOLLOWING UP ON PT, AWARE DR LEACH IS PLANING TO TRANSFER PT TO SNF EITHER MONDAY OR MONDAY, IN ORDER TO GIVE PT TIME TO WORK WITH PHYSICAL THERAPY
[2019-12-08] MEDS: FUROSEMIDE 20 MG TAB PO SCH (10:26)
[2019-12-08] MEDS ORDERED: POTASSIUM CHL 20MEQ/100ML 100 ML IV ONE (11:30)
[2019-12-08 13:07] VITALS: BP 130/52
--- NOTE | 2019-12-08 14:12 | NUR ---
Attempted physical therapy treatment but pt refused. Pt states she needs assistance eating but refused assistance stating she only wants her nurse. Pt was again educated on importance of participating in physical therapy treatments to improve strength and endurance as well as to facilitate SNF placement for rehab. Pt verbalized understanding but continues to refused to participate and asked therapists to please leave the room and send her nurse in to help her eat. Nursing notified, will attempt again tomorrow.
--- NOTE | 2019-12-08 14:30 | NUR ---
FAMILY PT IS OVER THE PHONE WITH HER , CONTINUE VERY SOFT SPOKEN AND FEELING WEEK, OXYGEN 3 L NC, NO DISTRESS NOTED
--- NOTE | 2019-12-08 14:46 | NUR ---
PT IS HAVING DIFFICULTY TO EAT SOFT DIET, DIET CHANGE TO PUREE DIET
--- NOTE | 2019-12-08 14:50 | NUR ---
BM PT HAS A SOFT BM, CLEANSE SKIN WELL WITH SOAP AND WATER, PAT IT TO DRY
[2019-12-08 17:00] VITALS: BP 135/60
--- NOTE | 2019-12-08 17:05 | NUR ---
Nutrition Followup Notes Wt: 73.1 kg Pt is positive for COVID. Pt is with CCHO 60g diet with Glucerna 1 carton tid with fair appetite aeb [address] PO of 38% x 4 meals per RN doc Est energy needs 9456-0566 kcal (20-25 kcal/kg BW 74.4kg), Est protein needs 59-74g (0.8-1g/kg BW 74.4kg). Will reassess prn LABS: GLU 176 H, CO2 34 H, ALB 2.1 L GI: Pt had 1 BM on 12/06 per RN doc BS: 15 mod risk. Refer to wound assessment report for full details. PES: Overweight r/t caloric intake in excess of needs aeb pt BMI is 29.1kg/m2 Comments: Will continue to monitor PO intake skin status. F/u mod 3-5 days Rec: 1) Refer pt to [facility] on DC. 2) Consider prostat 1 packet bid 3) Continue current plan of care
--- NOTE | 2019-12-08 18:17 | NUR ---
FAMILY PATIENT'S DAUGHTER DENNIS, CALLED TO GET UPDATE ABOUT HER MOM
--- NOTE | 2019-12-08 18:30 | NUR ---
PT CONTINUE STABLE, CONTINUE RESISTING FOR CARE, EATING DINNER, NO DISTRESS NOTED
[2019-12-08 22:00] VITALS: BP 123/74
[2019-12-09 05:00] VITALS: BP 101/29
[2019-12-09] MEDS: ALBUTEROL SULF HFA 90MCG INH 200DOSE IN SCH ×3 (06:35→21:10)
[2019-12-09] MEDS: BUDESONIDE (INHALATION) 180 MCG IH IN SCH ×2 (06:35→21:10)
[2019-12-09] MEDS: ACCU-CHEK COMFORT CURVE STRIP VI SCH ×4 (06:49→21:47)
[2019-12-09] MEDS: LEVOTHYROXINE SODIUM 25 MCG TAB PO SCH (06:49)
[2019-12-09] MEDS: InsuLIN REG 1unit/0.01ml Soln (100units/ml) SC SCH ×4 (06:50→21:44)
[2019-12-09] MEDS: SALINE 0.65 % NASAL SPRAY 45ML BOTTLE EACHNOSTRI SCH ×4 (06:50→21:47)
--- NOTE | 2019-12-09 06:52 | NUR ---
Blood Draw Blood drawn and sent to lab via bullet.
[2019-12-09 07:24] LABS: BUN/Creatinine Ratio 65.5; Bilirubin, Total 1.2 mg/dL (0.2-1.0); Calcium 8.6 mg/dL (8.5-10.1); Magnesium 2.1 mg/dL (1.6-2.6); Phosphorus 2.2 mg/dL (2.5-4.90); Total Protein 4.9 g/dL (6.4-8.2)
[2019-12-09 08:00] VITALS: BP 148/72
[2019-12-09] MEDS: Glucerna Carbsteady SHAKE Vanilla 8oz PO SCH ×3 (08:00→18:16)
--- NOTE | 2019-12-09 10:21 | NUR ---
Spoke to patient's Kaden and updated on POC after password was provided. Patient's spouse requesting call from Provided, will inform MD.
[2019-12-09 10:31] VITALS: BP 148/72
[2019-12-09] MEDS: POTASSIUM CHL 20 Meq TABLET PO SCH (10:51)
[2019-12-09] MEDS: DexAMETHasone 4 MG TAB PO SCH (10:51)
[2019-12-09] MEDS: FUROSEMIDE 20 MG TAB PO SCH (10:51)
[2019-12-09] MEDS: APIXABAN 5 MG TAB PO SCH ×2 (10:51→21:47)
[2019-12-09] MEDS: SERTRALINE HCL 50 MG TAB PO SCH (10:52)
[2019-12-09] MEDS: DOXYCYCLINE 100 MG TAB/CAP PO SCH ×2 (10:52→21:47)
[2019-12-09] MEDS: METOPROLOL TARTRATE 50 MG TAB PO SCH ×2 (10:52→21:47)
[2019-12-09] MEDS: PANTOPRAZOLE 40 MG TAB PO SCH (10:52)
[2019-12-09] MEDS: CHOLECALCIFEROL (VITD3) 1,000UNIT=25mCg TAB PO SCH (10:52)
[2019-12-09] MEDS: SODIUM CHLOR 0.9% PF (SALINE LOCK) 10ML VIAL/SYR IV SCH ×2 (10:53→21:47)
--- NOTE | 2019-12-09 11:14 | NUR ---
Spoke with pt's Kaden after password provided. Updated on pt's progress with physical therapy and fluctuations in ability/participation from day to day.
[2019-12-09] MEDS ORDERED: FUROSEMIDE 20 MG/2 ML VIAL IV ONE (11:45)
[2019-12-09] MEDS ORDERED: POTASSIUM EFFERVESENT TAB 25 MEQ PO ONE (11:45)
[2019-12-09 12:00] VITALS: BP 133/74
--- NOTE | 2019-12-09 15:00 | NUR ---
Dressing changed to sacral area and buttocks. Complete linen change performed and complete bed bath given. Cleanse sacral wounds with mild soap and water, pat dry, Applied Thera honey gel/honey gauze, cover wound with Optifoam gentle dressing applied. Patient tolerated well. Cont to monitor
--- NOTE | 2019-12-09 16:14 | NUR ---
Patient up out of bed with physical therapists. Patient sitting in the chair at this time. Sat 91% on 8L. Will cont to monitor
[2019-12-09 17:00] VITALS: BP 146/86
--- NOTE | 2019-12-09 19:10 | NUR ---
Patient care endorsed endorsed care to Lizbeth garzon. Patient sitting up in semi oneal's in no acute distress or sob noted. Fall precs in place per protocol. Patient currently 5L n/c sat 93%. Continuos pulse ox in place.
--- NOTE | 2019-12-09 19:15 | NUR ---
OPENING NOTE Received report from day shift RN. Patient is A&O X's 4 with no s/s of distress and reports no pain. Respirations are even and unlabored. Patient receiving 5L oxygen via NC. O2>95%. Will titrate down and monitor. Educated patient on POC and to use call light when in need of any assistance. Patient verbalized understanding. Bed is in lowest/locked position with side rails up X's 2 and call light is within reach of patient. repositioned patient at this time and educated patient on importance of turning Q2HR/PRN.
[2019-12-09 22:00] VITALS: BP 130/81
--- NOTE | 2019-12-10 00:45 | NUR ---
TURNING PATIENT When attempting to turn patient and move pillows under pressure areas, patient said "no please don't." I then explained to patient that this is to keep her from developing any more wounds and prevent the sacral ulcer from getting worse. I tried to place another pillow under her right side and patient yelled, "no stop." I then stopped and educated patient that I will come back in another hour to turn her. Will continue to educate patient importance of turning.
[2019-12-10 05:00] VITALS: BP 134/88
--- NOTE | 2019-12-10 05:12 | NUR ---
REFUSING WOUND CARE When about to perform wound care, patient started to say "please. No!" and pulling away. CHUCK SPLITTER also at bedside at this time to help encourage patient. Patient continue to refuse. Educated patient that the wound needs to be cleaned and to apply a new dressing or the wound will get worse. Patient verbalized understanding. Patient is continuing to refuse and pull back when approaching patient to reposition. Will continue to educate patient about the importance of this manner. Patient was repositioned and moved up in bed at this time however.
[2019-12-10] MEDS: LEVOTHYROXINE SODIUM 25 MCG TAB PO SCH (06:30)
[2019-12-10] MEDS: SALINE 0.65 % NASAL SPRAY 45ML BOTTLE EACHNOSTRI SCH ×3 (06:30→18:10)
[2019-12-10] MEDS: InsuLIN REG 1unit/0.01ml Soln (100units/ml) SC SCH ×3 (06:31→18:11)
[2019-12-10] MEDS: ACCU-CHEK COMFORT CURVE STRIP VI SCH ×3 (06:40→18:10)
[2019-12-10] MEDS: ALBUTEROL SULF HFA 90MCG INH 200DOSE IN SCH ×3 (07:32→21:22)
[2019-12-10] MEDS: BUDESONIDE (INHALATION) 180 MCG IH IN SCH ×2 (07:32→21:22)
[2019-12-10 08:38] VITALS: BP 112/74
--- NOTE | 2019-12-10 09:39 | NUR ---
patient refused to turn asked if i can come back latter
[2019-12-10] MEDS: Glucerna Carbsteady SHAKE Vanilla 8oz PO SCH ×3 (10:49→18:00)
[2019-12-10] MEDS: SODIUM CHLOR 0.9% PF (SALINE LOCK) 10ML VIAL/SYR IV SCH (10:50)
[2019-12-10] MEDS: APIXABAN 5 MG TAB PO SCH (11:39)
[2019-12-10] MEDS: DexAMETHasone 4 MG TAB PO SCH (11:39)
[2019-12-10] MEDS: POTASSIUM CHL 20 Meq TABLET PO SCH (11:39)
[2019-12-10] MEDS: METOPROLOL TARTRATE 50 MG TAB PO SCH (11:40)
[2019-12-10] MEDS: PANTOPRAZOLE 40 MG TAB PO SCH (11:40)
[2019-12-10] MEDS: FUROSEMIDE 20 MG TAB PO SCH (11:41)
[2019-12-10] MEDS: SERTRALINE HCL 50 MG TAB PO SCH (11:41)
[2019-12-10] MEDS: CHOLECALCIFEROL (VITD3) 1,000UNIT=25mCg TAB PO SCH (11:41)
[2019-12-10] MEDS: DOXYCYCLINE 100 MG TAB/CAP PO SCH (11:41)
[2019-12-10 12:27] VITALS: BP 133/82
--- NOTE | 2019-12-10 14:28 | NUR ---
re-assessment Per ss consult hospice eval. Per patients Obi he has agreed to hospice as well as patient. Jaqueline SW1 will satisfy order. Obi verbalized understanding and agreed to discharge plan home on hospice. Addendum: 12/10/19 at 1430 by Maryjane Espinoza Amended: Links added.
--- NOTE | 2019-12-10 16:27 | NUR ---
D/C planning Per consult for hospice. Faxed to [facility]. Per Kerry with [facility] hospice patient has been accepted and service to start upon d/c day. Transport has been arranged with safety care transportation via gurney/ oxygen with a 8:30pm draft roller picker time.
[2019-12-10 17:18] VITALS: BP 120/72
[2019-12-10 18:23] VITALS: BP 112/74
--- NOTE | 2019-12-10 19:30 | NUR ---
OPENING SHIFT NOTE Assumed care of patient who is A&O x4. Currently on 3L NC with no s/s of distress. Denies pain at this time. Triple lumen PICC line in left upper arm intact and patent. All three lumens flushed with NS. POC discussed and patient verbalizes understanding. Bed is in low locked position with side rails up x2. Call light is within reach and patient encouraged to call for assistance when needed.
--- NOTE | 2019-12-10 20:00 | NUR ---
FAMILY Received call from Patient's daughter. Password verified and update provided.
--- NOTE | 2019-12-10 20:30 | NUR ---
Wound Care Wound care performed as ordered. Posterior sacral wound, greatest bed is red with yellow slough at edges. Posterior sacrum cleansed with wound cleanser, patted dry with sterile gauze, therahoney applied, and covered with a sacral Optifoam. Skin tear to left lower buttock noted. Cleansed with wound cleanser, patted dry with sterile gauze, zguard applied, and skin tear covered with an Optifoam. Patient tolerated well and positioned onto right side.
--- NOTE | 2019-12-10 21:40 | NUR ---
DISCHARGE Patient transported via gurney on 3L o2 by [facility]. All personal belongings sent with patient. Patient is stable with no s/s of distress on departure.
--- NOTE | 2019-12-10 21:45 | NUR ---
FAMILY Called patient's Obi to notify of discharge. Obi voices concern with his ability to care for the patient at home. Informed him that Hospice staff will come to the home to assess the patient and establish a plan of care. Informed him that physical therapy and wound care would be provided to the patient while at home. Instructed that Hospice can be called at anytime to answer questions and patient can be brought back to ER if condition worsens.
[2019-12-10 21:47] VITALS: BP 158/97
--- NOTE | 2019-12-11 00:24 | NUR ---
FAMILY Received call from Patient's , Obi. Verified password and all questions answered.
[2019-12-11] MEDS ORDERED: POTASSIUM EFFERVESENT TAB 25 MEQ GT SCH (10:00)
== END 2019-12-10 21:40 | disposition hospice, home (50) | DRG 871 ==
LOC: ER 19:42 → TELE 19:43 → TELE-EAST 10-29 04:35 → DOU IN ICU 11-13 13:52 → TELE-EAST 11-22 16:54
PROVIDERS: ADMIT Nurse Practitioner; ATTEND Internal Medicine
PROC: XW033E5 Introduction of Remdesivir Anti-infective into Peripheral Vein, Percutaneous Approach, New Technology Group 5 (ICD-10-PCS; 2019-10-31)
PROC: XW033H5 Introduction of Tocilizumab into Peripheral Vein, Percutaneous Approach, New Technology Group 5 (ICD-10-PCS; 2019-11-04)
PROC: 30233K1 Transfusion of Nonautologous Frozen Plasma into Peripheral Vein, Percutaneous Approach (ICD-10-PCS; principal; 2019-11-09)
PROC: XW13325 Transfusion of Convalescent Plasma (Nonautologous) into Peripheral Vein, Percutaneous Approach, New Technology Group 5 (ICD-10-PCS; 2019-11-09)
PROC: 0W9930Z Drainage of Right Pleural Cavity with Drainage Device, Percutaneous Approach (ICD-10-PCS; 2019-11-13)
PROC: 02HV33Z Insertion of Infusion Device into Superior Vena Cava, Percutaneous Approach (ICD-10-PCS; 2019-11-16)
DX: A41.89 Other specified sepsis (principal); U07.1 COVID-19; J12.89 Other viral pneumonia; J96.01 Acute respiratory failure with hypoxia; E87.1 Hypo-osmolality and hyponatremia; J98.11 Atelectasis; J93.83 Other pneumothorax; I82.431 Acute embolism and thrombosis of right popliteal vein; R65.20 Severe sepsis without septic shock; E87.6 Hypokalemia; I10 Essential (primary) hypertension; E11.65 Type 2 diabetes mellitus with hyperglycemia; E66.01 Morbid (severe) obesity due to excess calories; D69.6 Thrombocytopenia, unspecified; R04.0 Epistaxis; E03.9 Hypothyroidism, unspecified; F32.9 Major depressive disorder, single episode, unspecified; F41.9 Anxiety disorder, unspecified; Z51.5 Encounter for palliative care; E78.5 Hyperlipidemia, unspecified; Z74.01 Bed confinement status; Z79.4 Long term (current) use of insulin; Z82.62 Family history of osteoporosis; Z82.49 Family history of ischemic heart disease and other diseases of the circulatory system; Z83.3 Family history of diabetes mellitus; Z88.0 Allergy status to penicillin; Z88.1 Allergy status to other antibiotic agents; Z91.040 Latex allergy status; Z88.2 Allergy status to sulfonamides; Z91.018 Allergy to other foods; Z68.27 Body mass index [BMI] 27.0-27.9, adult
CPT/HCPCS: 36415; 36569; 36600; 71045; 71275; 76700; 80048; 80053; 80202; 81001; 82040; 82728; 82805; 82962; 83605; 83615; 83735; 83880; 84100; 84132; 84443; 84478; 84484; 85007; 85025; 85027; 85379; 85610; 85730; 86141; 86850; 86900; 86901; 87040; 87070; 87081; 87804; 87880; 93005; 93970; 94640; 97110; 97116; 97163; 97530; C9113; G0378; J0696; J1100; J1450; J1815; J1956; J2001; J2185; J3480; J3490; J7131

== ENCOUNTER 2019-12-12 02:36 | Inpatient (IN) | payer OTHER ==
[~2019-12-12] VITALS: Ht 167.6 cm; Wt 79.2 kg
[2019-12-12 04:08] LABS: Basophils # (auto) 0 10 ^3/uL (0-0.2); Basophils % (auto) 0.3 % (0.0-2.0); Eosinophils # (auto) 0 10 ^3/uL (0-0.8); Hematocrit 36.7 % (36.0-46.0); Hemoglobin 11.6 g/dL (12.2-16.2); Lymphocytes # (auto) 0.8 10 ^3/uL (0.4-5.4); Lymphocytes % (auto) 5.5 % (10.0-50.0); Mean Corpuscular Hemoglobin 29.9 pg (28.0-32.0); Mean Corpuscular Hgb Conc. 31.6 g/dL (32.0-36.0); Mean Corpuscular Volume 94.4 fL (80.0-100.0); Monocytes # (auto) 0.6 10 ^3/uL (0-1.3); Monocytes % (auto) 4.2 % (0.0-12.0); Neutrophils # (auto) 13.3 10 ^3/uL (1.6-8.6); Platelet Count (auto) 208 10^3/uL (140-450); Red Blood Cells 3.88 10^6/uL (4.0-5.20); Red Cell Distribution Width 19.7 % (11.8-14.3); White Blood Cell 14.8 10^3/uL (4.4-10.8)
[2019-12-12 04:23] LABS: Anion Gap 20 (5-15); Blood Alcohol < 3.0 mg/dL (0-5); Blood Urea Nitrogen 44 mg/dL (7-18); Calcium 8.1 mg/dL (8.5-10.1); Carbon Dioxide 20 mmol/L (21-32); Chloride 99 mmol/L (98-107); GFR African American 47 mL/min; GFR Non-African American 39 mL/min; Glucose 360 mg/dL (74-106); Magnesium 2.1 mg/dL (1.6-2.6); Potassium 4.6 mmol/L (3.5-5.1); Sodium 139 mmol/L (136-145)
[2019-12-12 04:26] LABS: Lactic Acid w/Reflex 2.4 mmol/L (0.4-2.0)
[2019-12-12 04:31] LABS: Alanine Aminotransferase 51 U/L (13-56); Alkaline Phosphatase 163 U/L (45-117); Aspartate Aminotransferase 26 U/L (15-37); Total Protein 5.1 g/dL (6.4-8.2)
[2019-12-12 04:33] LABS: INR 1.17 (0.9-1.15); Partial Thromboplastin Time 22.9 sec (23.0-31.2)
[2019-12-12 05:32] LABS: Urine Bacteria FEW /hpf (None Seen); Urine Blood 3+ /uL (Negative); Urine Mucus FEW (None Seen); Urine Specific Gravity 1.015 (1.001-1.035); Urine WBC 46 /hpf (0 - 5)
[2019-12-12 05:44] LABS: Alcohol, Urine < 3.0 mg/dL (0-10); Amphetamine Screen, Urine NEGATIVE (NEGATIVE); Barbiturate Scree,Urine NEGATIVE (NEGATIVE); Benzodiazephine Screen, Urine NEGATIVE (NEGATIVE); Cannabinoid Screen, Urine NEGATIVE (NEGATIVE); Cocaine Screen, Urine NEGATIVE (NEGATIVE); Opiate Scree,Urine NEGATIVE (NEGATIVE); Phencyclidine Screen, Urine NEGATIVE (NEGATIVE)
[2019-12-12] MEDS ORDERED: AZITHROMYCIN 500MG/ 250ML 250 ML IV ONE (05:45)
[2019-12-12] MEDS ORDERED: SODIUM CHLORIDE 0.9% 1,000 ML IV ONE (05:45)
[2019-12-12] MEDS ORDERED: InsuLIN REG 1unit/0.01ml Soln (100units/ml) SC ONE (06:00)
[2019-12-12] MEDS ORDERED: ERTAPENEM SOD INJ 1 GM in SODIUM CHL 0.9% 50 ML IV ONE (09:00)
[2019-12-12] MEDS ORDERED: MORPHINE SULF INJ 2 MG/ML SYRINGE 1ML IV PRN ×3 (09:15→15:00)
[2019-12-12] MEDS ORDERED: NITROGLYCERIN 0.4 MG SL TAB SL PRN ×3 (09:15→15:00)
[2019-12-12 09:36] VITALS: BP 132/80
[2019-12-12 12:00] VITALS: BP 124/76
[2019-12-12 12:37] VITALS: BP 105/59
[2019-12-12] MEDS ORDERED: PRAV20TA3 PO (13:11)
[2019-12-12] MEDS ORDERED: LISI-648 PO (13:11)
[2019-12-12] MEDS ORDERED: METF-370 PO (13:11)
[2019-12-12] MEDS ORDERED: DEXTROSE (50%) 50ML SYRG IV PRN (15:00)
[2019-12-12] MEDS ORDERED: ENOXAPARIN SOD 30 MG/0.3 ML SYRINGE SC ONE (15:00)
[2019-12-12] MEDS: SODIUM CHLORIDE 0.9% 1,000 ML IV SCH (15:04)
[2019-12-12 17:00] VITALS: BP 116/79
[2019-12-12] MEDS: ACCU-CHEK COMFORT CURVE STRIP VI SCH (18:22)
[2019-12-12] MEDS: InsuLIN REG 1unit/0.01ml Soln (100units/ml) SC SCH (18:22)
[2019-12-12] MEDS: BUDESONIDE (INHALATION) 0.5 MG/2 ML NEB NEB SCH (20:26)
[2019-12-12 22:00] VITALS: BP 136/88
[2019-12-13] MEDS: ACCU-CHEK COMFORT CURVE STRIP VI SCH ×4 (00:49→17:25)
[2019-12-13] MEDS: InsuLIN REG 1unit/0.01ml Soln (100units/ml) SC SCH ×4 (00:53→17:25)
[2019-12-13 05:00] VITALS: BP 142/91
[2019-12-13 05:52] LABS: Calcium 8.3 mg/dL (8.5-10.1); Potassium 3.6 mmol/L (3.5-5.1)
[2019-12-13 05:55] LABS: BUN/Creatinine Ratio 39.3
[2019-12-13] MEDS: LEVOTHYROXINE SODIUM 100 MCG TAB PO SCH (06:51)
[2019-12-13] MEDS: SODIUM CHLORIDE 0.9% 1,000 ML IV SCH (06:52)
[2019-12-13] MEDS: BUDESONIDE (INHALATION) 0.5 MG/2 ML NEB NEB SCH ×2 (06:53→21:55)
[2019-12-13 08:00] VITALS: BP 148/90
[2019-12-13] MEDS: ZINC SULFATE 220mg CAP or TAB PO SCH (09:50)
[2019-12-13] MEDS: FAMOTIDINE (10MG/ML) 2ML VL IV SCH (09:50)
[2019-12-13] MEDS ORDERED: ENOXAPARIN SOD 30 MG/0.3 ML SYRINGE SC SCH (10:00)
[2019-12-13] MEDS: ERTAPENEM SOD INJ 1 GM in SODIUM CHL 0.9% 50 ML IV SCH (11:27)
[2019-12-13 11:34] LABS: Hematocrit 35.2 % (36.0-46.0); Hemoglobin 11.8 g/dL (12.2-16.2); Mean Corpuscular Hemoglobin 30.6 pg (28.0-32.0); Mean Corpuscular Hgb Conc. 33.5 g/dL (32.0-36.0); Mean Corpuscular Volume 91.4 fL (80.0-100.0); Platelet Count (auto) 196 10^3/uL (140-450); Red Blood Cells 3.85 10^6/uL (4.0-5.20); Red Cell Distribution Width 19.1 % (11.8-14.3); White Blood Cell 11.2 10^3/uL (4.4-10.8)
[2019-12-13 11:37] LABS: Basophils % (manual) 0 (0.0-2.0); Blast Cells 0; Eosinophils % (manual) 0 (0-7); Myelocytes % 0; Promyelocytes % 0; Reactive Lymphocytes 0
[2019-12-13 12:00] VITALS: BP 127/71
[2019-12-13 13:03] LABS: Band Neutrophils % (manual) 7; Lymphocytes % (manual) 5 (10.0-50.0); Metamyelocytes % 2; Monocytes % (manual) 5 (0-12)
[2019-12-13] MEDS ORDERED: glipiZIDE 5 MG TAB PO ONE (14:00)
[2019-12-13 17:00] VITALS: BP 132/80
[2019-12-13] MEDS: Glucerna Carbsteady SHAKE Vanilla 8oz PO SCH (18:00)
[2019-12-13 22:00] VITALS: BP 130/77
[2019-12-14] MEDS: InsuLIN REG 1unit/0.01ml Soln (100units/ml) SC SCH ×5 (00:30→23:55)
[2019-12-14] MEDS: ACCU-CHEK COMFORT CURVE STRIP VI SCH ×5 (00:49→23:55)
[2019-12-14] MEDS: SODIUM CHLORIDE 0.9% 1,000 ML IV SCH (00:50)
[2019-12-14 05:00] VITALS: BP 132/72
[2019-12-14 05:41] LABS: Hematocrit 33.7 % (36.0-46.0); Hemoglobin 11.2 g/dL (12.2-16.2); Mean Corpuscular Hemoglobin 30.5 pg (28.0-32.0); Mean Corpuscular Hgb Conc. 33.3 g/dL (32.0-36.0); Mean Corpuscular Volume 91.8 fL (80.0-100.0); Platelet Count (auto) 190 10^3/uL (140-450); Red Blood Cells 3.67 10^6/uL (4.0-5.20); Red Cell Distribution Width 19.2 % (11.8-14.3); White Blood Cell 11.4 10^3/uL (4.4-10.8)
[2019-12-14 05:53] LABS: Basophils % (manual) 0 (0.0-2.0); Blast Cells 0; Eosinophils % (manual) 0 (0-7); Myelocytes % 0; Promyelocytes % 0; Reactive Lymphocytes 0
[2019-12-14 05:56] LABS: BUN/Creatinine Ratio 54.7; Calcium 8.4 mg/dL (8.5-10.1); Potassium 3.2 mmol/L (3.5-5.1)
[2019-12-14 06:15] LABS: Band Neutrophils % (manual) 7; Lymphocytes % (manual) 8 (10.0-50.0); Metamyelocytes % 1; Monocytes % (manual) 5 (0-12)
[2019-12-14] MEDS: glipiZIDE 5 MG TAB PO SCH (06:19)
[2019-12-14] MEDS: LEVOTHYROXINE SODIUM 100 MCG TAB PO SCH (06:37)
[2019-12-14] MEDS: BUDESONIDE (INHALATION) 0.5 MG/2 ML NEB NEB SCH ×2 (07:22→22:01)
[2019-12-14] MEDS: Glucerna Carbsteady SHAKE Vanilla 8oz PO SCH ×3 (08:20→17:17)
[2019-12-14 09:00] VITALS: BP 130/82
[2019-12-14] MEDS: ASPirin 81 mg TAB PO SCH (10:26)
[2019-12-14] MEDS: ERTAPENEM SOD INJ 1 GM in SODIUM CHL 0.9% 50 ML IV SCH (10:26)
[2019-12-14] MEDS: ZINC SULFATE 220mg CAP or TAB PO SCH (10:26)
[2019-12-14] MEDS: FAMOTIDINE (10MG/ML) 2ML VL IV SCH (10:26)
[2019-12-14] MEDS ORDERED: POTASSIUM EFFERVESENT TAB 25 MEQ PO ONE (11:00)
[2019-12-14 13:00] VITALS: BP 132/79
[2019-12-14] MEDS: SOD CHL 0.45% WITH 20MEQ KCL 1,000 ML IV SCH (13:20)
[2019-12-14 16:41] VITALS: BP 136/82
[2019-12-14 20:00] VITALS: BP 139/81
[2019-12-14 22:00] VITALS: BP 139/81
[2019-12-15] VITALS (7 sets, daily range): BP systolic 141–163; BP diastolic 76–90
[2019-12-15] MEDS: SOD CHL 0.45% WITH 20MEQ KCL 1,000 ML IV SCH ×2 (01:26→17:32)
[2019-12-15] MEDS: InsuLIN REG 1unit/0.01ml Soln (100units/ml) SC SCH ×4 (06:00→22:15)
[2019-12-15] MEDS: ACCU-CHEK COMFORT CURVE STRIP VI SCH ×4 (06:22→22:12)
[2019-12-15] MEDS: BUDESONIDE (INHALATION) 0.5 MG/2 ML NEB NEB SCH ×2 (06:53→22:04)
[2019-12-15] MEDS: glipiZIDE 5 MG TAB PO SCH (07:20)
[2019-12-15] MEDS: LEVOTHYROXINE SODIUM 100 MCG TAB PO SCH (07:20)
[2019-12-15] MEDS: FAMOTIDINE (10MG/ML) 2ML VL IV SCH (10:01)
[2019-12-15] MEDS: ASPirin 81 mg TAB PO SCH (10:01)
[2019-12-15] MEDS: ZINC SULFATE 220mg CAP or TAB PO SCH (10:01)
[2019-12-15] MEDS: ERTAPENEM SOD INJ 1 GM in SODIUM CHL 0.9% 50 ML IV SCH (10:02)
[2019-12-15] MEDS: Glucerna Carbsteady SHAKE Vanilla 8oz PO SCH ×3 (10:02→17:32)
[2019-12-16] MEDS: SOD CHL 0.45% WITH 20MEQ KCL 1,000 ML IV SCH ×2 (03:06→18:08)
[2019-12-16 05:00] VITALS: BP 161/95
[2019-12-16 06:00] VITALS: BP 152/84
[2019-12-16] MEDS: ACCU-CHEK COMFORT CURVE STRIP VI SCH ×4 (06:20→23:43)
[2019-12-16] MEDS: glipiZIDE 5 MG TAB PO SCH (06:20)
[2019-12-16] MEDS: LEVOTHYROXINE SODIUM 100 MCG TAB PO SCH (06:21)
[2019-12-16] MEDS: InsuLIN REG 1unit/0.01ml Soln (100units/ml) SC SCH ×4 (06:24→23:44)
[2019-12-16 06:29] LABS: Hematocrit 33.6 % (36.0-46.0); Hemoglobin 10.9 g/dL (12.2-16.2); Mean Corpuscular Hgb Conc. 32.5 g/dL (32.0-36.0); Mean Corpuscular Volume 92.3 fL (80.0-100.0); Platelet Count (auto) 169 10^3/uL (140-450); Red Blood Cells 3.64 10^6/uL (4.0-5.20); Red Cell Distribution Width 19.9 % (11.8-14.3); White Blood Cell 10.7 10^3/uL (4.4-10.8)
[2019-12-16 06:49] LABS: Basophils % (manual) 0 (0.0-2.0); Blast Cells 0; Eosinophils % (manual) 0 (0-7); Metamyelocytes % 0; Myelocytes % 0; Promyelocytes % 0; Reactive Lymphocytes 0
[2019-12-16 07:09] LABS: Potassium 3.2 mmol/L (3.5-5.1)
[2019-12-16] MEDS: BUDESONIDE (INHALATION) 0.5 MG/2 ML NEB NEB SCH ×2 (07:30→21:59)
[2019-12-16 07:33] LABS: Albumin 1.6 g/dL (3.4-5.0); BUN/Creatinine Ratio 72.7; Bilirubin, Total 0.8 mg/dL (0.2-1.0); Calcium 8.1 mg/dL (8.5-10.1); Total Protein 4.8 g/dL (6.4-8.2)
[2019-12-16 09:00] VITALS: BP 160/94
[2019-12-16 09:22] LABS: Band Neutrophils % (manual) 3; Lymphocytes % (manual) 8 (10.0-50.0); Monocytes % (manual) 3 (0-12)
[2019-12-16] MEDS: ASPirin 81 mg TAB PO SCH (10:01)
[2019-12-16] MEDS: FAMOTIDINE (10MG/ML) 2ML VL IV SCH (10:01)
[2019-12-16] MEDS: ZINC SULFATE 220mg CAP or TAB PO SCH (10:01)
[2019-12-16] MEDS: ERTAPENEM SOD INJ 1 GM in SODIUM CHL 0.9% 50 ML IV SCH (10:01)
[2019-12-16] MEDS: Glucerna Carbsteady SHAKE Vanilla 8oz PO SCH ×3 (10:02→18:07)
[2019-12-16 13:00] VITALS: BP 121/110
[2019-12-16 17:00] VITALS: BP 132/65
[2019-12-16] MEDS: APIXABAN 5 MG TAB PO SCH (21:37)
[2019-12-16 22:12] VITALS: BP 147/97
[2019-12-17 05:00] VITALS: BP 156/86
[2019-12-17] MEDS: ACCU-CHEK COMFORT CURVE STRIP VI SCH ×3 (05:36→19:03)
[2019-12-17] MEDS: SOD CHL 0.45% WITH 20MEQ KCL 1,000 ML IV SCH (05:36)
[2019-12-17] MEDS: InsuLIN REG 1unit/0.01ml Soln (100units/ml) SC SCH ×3 (05:36→18:00)
[2019-12-17] MEDS: glipiZIDE 5 MG TAB PO SCH (05:37)
[2019-12-17] MEDS: LEVOTHYROXINE SODIUM 100 MCG TAB PO SCH (06:33)
[2019-12-17 09:00] VITALS: BP 156/97
[2019-12-17] MEDS: ASPirin 81 mg TAB PO SCH (09:35)
[2019-12-17] MEDS: ZINC SULFATE 220mg CAP or TAB PO SCH (09:35)
[2019-12-17] MEDS: APIXABAN 5 MG TAB PO SCH ×2 (09:35→21:28)
[2019-12-17] MEDS: FAMOTIDINE (10MG/ML) 2ML VL IV SCH (09:35)
[2019-12-17] MEDS: Glucerna Carbsteady SHAKE Vanilla 8oz PO SCH ×3 (09:35→18:00)
[2019-12-17] MEDS: BUDESONIDE (INHALATION) 0.5 MG/2 ML NEB NEB SCH ×2 (09:59→22:11)
[2019-12-17] MEDS: ERTAPENEM SOD INJ 1 GM in SODIUM CHL 0.9% 50 ML IV SCH (10:09)
[2019-12-17 13:00] VITALS: BP 113/64
[2019-12-17] MEDS ORDERED: LISINOPRIL 10 MG TAB PO ONE (13:00)
[2019-12-17 17:00] VITALS: BP 138/84
[2019-12-17 22:00] VITALS: BP 133/80
[2019-12-18] MEDS: ACCU-CHEK COMFORT CURVE STRIP VI SCH ×4 (00:40→17:43)
[2019-12-18 05:00] VITALS: BP 147/88
[2019-12-18] MEDS: BUDESONIDE (INHALATION) 0.5 MG/2 ML NEB NEB SCH (06:18)
[2019-12-18] MEDS: LEVOTHYROXINE SODIUM 100 MCG TAB PO SCH (06:19)
[2019-12-18] MEDS: glipiZIDE 5 MG TAB PO SCH (06:20)
[2019-12-18] MEDS: InsuLIN REG 1unit/0.01ml Soln (100units/ml) SC SCH ×4 (06:31→17:42)
[2019-12-18 08:00] VITALS: BP 147/93
[2019-12-18 09:14] VITALS: BP 147/93
[2019-12-18] MEDS: Glucerna Carbsteady SHAKE Vanilla 8oz PO SCH ×3 (09:26→17:42)
[2019-12-18] MEDS: ERTAPENEM SOD INJ 1 GM in SODIUM CHL 0.9% 50 ML IV SCH (09:26)
[2019-12-18] MEDS: ZINC SULFATE 220mg CAP or TAB PO SCH (09:27)
[2019-12-18] MEDS: APIXABAN 5 MG TAB PO SCH (09:27)
[2019-12-18] MEDS: ASPirin 81 mg TAB PO SCH (09:27)
[2019-12-18] MEDS: FAMOTIDINE (10MG/ML) 2ML VL IV SCH (09:28)
[2019-12-18] MEDS ORDERED: LISINOPRIL 10 MG TAB PO SCH (10:00)
[2019-12-18 11:55] VITALS: BP 133/95
[2019-12-18 14:25] VITALS: BP 147/93
== END 2019-12-18 19:20 | disposition hospice, home (50) | DRG 871 ==
LOC: EDBD 02:36 → ER 02:39 → TELE 02:40 → TELE-EAST 12:30
PROVIDERS: ADMIT Internal Medicine; ATTEND Internal Medicine
DX: A41.89 Other specified sepsis (principal); J12.89 Other viral pneumonia; U07.1 COVID-19; G92 Toxic encephalopathy; J96.00 Acute respiratory failure, unspecified whether with hypoxia or hypercapnia; E44.0 Moderate protein-calorie malnutrition; I82.501 Chronic embolism and thrombosis of unspecified deep veins of right lower extremity; J96.10 Chronic respiratory failure, unspecified whether with hypoxia or hypercapnia; N39.0 Urinary tract infection, site not specified; E87.0 Hyperosmolality and hypernatremia; E03.9 Hypothyroidism, unspecified; E11.22 Type 2 diabetes mellitus with diabetic chronic kidney disease; E11.65 Type 2 diabetes mellitus with hyperglycemia; E78.5 Hyperlipidemia, unspecified; D69.6 Thrombocytopenia, unspecified; Z51.5 Encounter for palliative care; I12.9 Hypertensive chronic kidney disease with stage 1 through stage 4 chronic kidney disease, or unspecified chronic kidney disease; E66.9 Obesity, unspecified; E86.0 Dehydration; E87.6 Hypokalemia; F32.9 Major depressive disorder, single episode, unspecified; N18.3 Chronic kidney disease, stage 3 (moderate); N28.9 Disorder of kidney and ureter, unspecified; Z68.28 Body mass index [BMI] 28.0-28.9, adult; Z79.899 Other long term (current) drug therapy; Z86.19 Personal history of other infectious and parasitic diseases; Z88.2 Allergy status to sulfonamides; Z88.1 Allergy status to other antibiotic agents; Z88.0 Allergy status to penicillin; Z88.8 Allergy status to other drugs, medicaments and biological substances
CPT/HCPCS: 36415; 36600; 70450; 71045; 72125; 80048; 80053; 80307; 80320; 81001; 82805; 82962; 83605; 83735; 83880; 84443; 84484; 85007; 85025; 85027; 85610; 85730; 87040; 87076; 87081; 87086; 87088; 92610; 93005; 94640; 97110; 97163; 97530; G0378; J1335; J1815; J3490

== ENCOUNTER → 2019-12-25 | Emergency (ER) | payer OTHER ==
[~2019-12-25] VITALS: Ht 170.2 cm; Wt 99.8 kg
[~2019-12-25] MED LIST changes: +METF-370 PO; +MIDAZOLAM DRIP 50 mg/50mL 50 ML IV ONE; +NOREPINEPHRINE 8 MG/250ML KIT 250 ML IV ONE; +PRAV20TA3 PO; +SODIUM BICARBONATE 8.4 % INJ 50ML VIAL IV ONE; +levoFLOXacin 500MG 100 ML IV ONE
[2019-12-25 11:38] VITALS: BP 131/19
== END | disposition expired ==
LOC: EDUNIT# 10:53 → ER 11:01 → EDBD 11:01
DX: I46.9 Cardiac arrest, cause unspecified (principal); J44.9 Chronic obstructive pulmonary disease, unspecified; E11.9 Type 2 diabetes mellitus without complications; E78.5 Hyperlipidemia, unspecified; I10 Essential (primary) hypertension; Z88.0 Allergy status to penicillin; Z88.2 Allergy status to sulfonamides; Z88.1 Allergy status to other antibiotic agents
CPT/HCPCS: 92950; 93005; 94002; J2250